=== PATIENT | male | born 1930 | race Caucasian/White ===

== ENCOUNTER → 2017-01-10 | Outpatient (CLI) | payer MEDICARE, OTHER ==
--- NOTE | 2017-01-10 09:25 | US ---
EXAMINATION TYPE: US thyroid st tissue head/neck DATE OF EXAM: 01/10/2017 9:04 AM COMPARISON: NONE CLINICAL HISTORY: R13.10 Dysphagia. GLAND SIZE: Right Lobe: 3.6 x 1.3 x 1.3 cm Overall Parenchyma: heterogenous Left Lobe: 3.5 x 1.1 x 1.7 cm Overall Parenchyma: heterogeneous Isthmus Thickness: 0.5 cm NODULES RIGHT: # of nodules measured on right: 0 LEFT: # of nodules measured on left: 0 ISTHMUS: # of nodules measured in the isthmus: 0 TECHNOLOGIST IMPRESSION: Bilateral neck scanned, no abnormal lymphadenopathy noted. Thyroid located quite inferior, technically difficult study. IMPRESSION: HETEROGENOUS THYROID WITHOUT DISCRETE NODULARITY.
--- NOTE | 2017-01-10 10:19 | FL ---
EXAMINATION TYPE: FL barium swallow w video DATE OF EXAM: 01/10/2017 9:52 AM COMPARISON: NONE HISTORY: Dysphagia. FINDINGS: Patient was evaluated in real-time fluoroscopy in the lateral projection while ingesting barium mixe d with liquids and solids. Questionable reflux noted from the more distal esophagus during the exam. No aspiration or laryngeal penetration. See dictated report from speech pathology. 2 minutes 26 seconds fluoroscopy time suppl ied. IMPRESSION: Questionable gastroesophageal reflux, consider dedicated barium swallow
== END | disposition home or self-care (01) ==
LOC: RADUSMAIN 08:40
PROVIDERS: ATTEND Otolaryngology
DX: R13.10 Dysphagia, unspecified (principal)
CPT/HCPCS: 74230; 76536

== ENCOUNTER → 2017-02-05 | Outpatient (CLI) | payer MEDICARE, OTHER ==
--- NOTE | 2017-02-05 12:31 | FL ---
EXAMINATION: Cervical and Thoracic Esophagram DATE OF EXAM: 02/05/2017 11:04 AM CLINICAL INDICATION: 78-year-old male with dysphagia, difficulty swallowing solids and liquids, feels food sticking at the mid chest level. COMPARISON: None Total Fluoroscopy Time: 2 minutes 26 seconds FINDINGS: When the patient is supine, mild silent aspiration is demonstrated. Some images of the hypopharyngeal region show possible filling defect versus mucosal redundancy. Double contrast esophageal assessment for mucosal abnormalities is limited due to slow, intermittent patient swallows. There are [id number] tertiary peristaltic contractions without definite filling defect or abnor mal narrowing. Intermittent intraesophageal reflux is seen No hiatal hernia is present. No gastroesophageal reflux could be elicited with Valsalva maneuver. IMPRESSION: 1. [id number] tertiary peristalsis and some intermittent intraesophageal reflux. 2. Some irregularity in the region of the hypopharynx is probably due to mucosal redundancy. Consider direct visualization to exclude a mucosal lesion. Detailed mucosal assessment is limited due to slow patient swallows. 3. Mild silent aspiration occurs when the patient is supine.
== END | disposition home or self-care (01) ==
LOC: RADFLWHC 10:00
PROVIDERS: ATTEND Otolaryngology
DX: K21.9 Gastro-esophageal reflux disease without esophagitis (principal)
CPT/HCPCS: 74220

== ENCOUNTER 2017-03-05 20:44 | Inpatient (IN) | payer MEDICARE, OTHER ==
[2017-03-05 21:20] LABS: Basophils % (A) 0 %; CHCM 33.7; Eosinophils # (A) 0.2 k/uL (0-0.7); Eosinophils % (A) 2 %; HCT 30.9 % (39.0-53.0); HDW 2.53; HGB 10.2 gm/dL (13.0-17.5); Luc # (Auto) 0.14; Luc % (Auto) 2; Lymphocytes # (A) 0.5 k/uL (1.0-4.8); Lymphocytes % (A) 7 %; MCH 33.6 pg (25.0-35.0); MCHC 33.1 g/dL (31.0-37.0); MCV 101.5 fL (80.0-100.0); Macrocytosis Slight; Mean Platelet Volume 8.5; Monocytes # (A) 0.3 k/uL (0-1.0); Monocytes % (A) 4 %; Neutrophils # (A) 6.7 k/uL (1.3-7.7); Neutrophils % (A) 85 %; RBC 3.05 m/uL (4.30-5.90); WBC 7.9 k/uL (3.8-10.6)
[2017-03-05 21:31] LABS: INR 1.1 (<1.1); Partial Thromboplastin Time 25.4 sec (22.0-30.0); Prothrombin Time 11.3 sec (9.0-12.0)
[2017-03-05 21:33] LABS: Calcium 8.6 mg/dL (8.4-10.2); Potassium 3.6 mmol/L (3.5-5.1); Total Bilirubin 1.8 mg/dL (0.2-1.3); Total Protein 6.3 g/dL (6.3-8.2)
[2017-03-05 21:37] LABS: Appearance,Urine Clear (Clear); Bilirubin,Urine Negative (Negative); Glucose,Urine (UA) Negative (Negative); Ketones,Urine Negative (Negative); Leukocyte Esterase,Urine Negative (Negative); Nitrite,Urine Negative (Negative); Protein,Urine Negative (Negative); Specific Gravity,Urine 1.008 (1.001-1.035); UA Billing (MACRO vs. MICRO) CHEM; Urobilinogen,Urine <2.0 mg/dL (<2.0)
--- NOTE | 2017-03-05 22:03 | ED ---
Fever HPI - General Chief Complaint: Fever Stated Complaint: general weakness,fever Time Seen by Provider: 03/05/17 20:44 Source: patient, EMS, RN notes reviewed Mode of arrival: EMS - History of Present Illness Initial Comments: This is a 86-year-old male was brought in by EMS for evaluation of fever 101.8. This started apparently rolled 5:30 this evening. He also noted have a blood pressure 97/52 sat of 91% room air he has a cough denies any headache blurry vision he does have a chronically swollen left lower extremity he states is no more swollen than usual. He denies any nausea vomiting cough or phlegm production he denies any dysuria. MD Complaint: fever - Related Data Home Medications Medication Instructions Recorded Confirmed Allopurinol [Zyloprim] 100 mg PO HS 09/26/16 03/05/17 Aspirin 81 mg PO HS 09/26/16 03/05/17 Atenolol [Tenormin] 50 mg PO QAM 09/26/16 03/05/17 Atorvastatin [Lipitor] 40 mg PO DAILY 09/26/16 03/05/17 Furosemide [Lasix] 40 mg PO QAM 09/26/16 03/05/17 [facility] 1 tab PO DAILY 09/26/16 03/05/17 Metolazone [Zaroxolyn] 2.5 mg PO Q48H 09/26/16 03/05/17 Potassium Chloride [Klor-Con 20] 70 meq PO AC-SUPPER 09/26/16 03/05/17 Ranitidine HCl [Zantac] 150 mg PO DAILY 09/26/16 03/05/17 traMADol HCL [Ultram] 50 mg PO Q8H PRN 09/26/16 03/05/17 Calcitriol 0.25 mcg PO LOPEZ 02/12/17 03/05/17 sitaGLIPtin [Januvia] 100 mg PO DAILY 02/12/17 03/05/17 Atenolol [Tenormin] 25 mg PO HS 03/05/17 03/05/17 Furosemide [Lasix] 60 mg PO HS 03/05/17 03/05/17 Previous Rx's Medication Instructions Recorded Loperamide [Imodium] 2 mg PO QID #20 cap 10/03/16 Allergies Allergy/AdvReac Type Severity Reaction Status Date / Time morphine Allergy Unknown Verified 05/10/17 22:13 Review of Systems ROS Statement: Those systems with pertinent positive or pertinent negative responses have been documented in the HPI. ROS Other: All systems not noted in ROS Statement are negative. Past Medical History Past Medical History: Cancer, Diabetes Mellitus, Osteoarthritis (OA) History of Any Multi-Drug Resistant Organisms: C-DIFF Date of last positivie culture/infection: 2011 MDRO Source:: stool Past Surgical History: Heart Catheterization With Stent, Hernia Repair, Joint Replacement, Pacemaker Past Anesthesia/Blood Transfusion Reactions: No Reported Reaction Date of Last Stent Placement:: unknown Type of Cardiac Device: Permanent Pacemaker Device Placement Date:: unknown Past Psychological History: No Psychological Hx Reported Smoking Status: Former smoker Past Alcohol Use History: None Reported Past Drug Use History: None Reported - Past Family History Father Family Medical History: Unable to Obtain General Exam - General Exam Comments Initial Comments: The well-developed well-nourished awake alert male General appearance: alert, in no apparent distress Head exam: Present: atraumatic, normocephalic, normal inspection Eye exam: Present: normal appearance, PERRL, EOMI. Absent: scleral icterus, conjunctival injection, periorbital swelling ENT exam: Present: mucous membranes dry Neck exam: Present: normal inspection. Absent: tenderness, meningismus, lymphadenopathy Respiratory exam: Present: normal lung sounds bilaterally. Absent: respiratory distress, wheezes, rales, rhonchi, stridor Cardiovascular Exam: Present: regular rate, normal rhythm, normal heart sounds. Absent: systolic murmur, diastolic murmur, rubs, gallop, clicks GI/Abdominal exam: Present: soft, normal bowel sounds. Absent: distended, tenderness, guarding, rebound, rigid Extremities exam: Present: full ROM, normal capillary refill, other (Left lower extremity demonstrates chronic stasis changes with edema does appear to be increased with respective temperature compared to the right. No lymphangitis). Absent: tenderness, pedal edema, joint swelling, calf tenderness Back exam: Present: normal inspection Neurological exam: Present: alert, oriented X3, CN II-XII intact Psychiatric exam: Present: normal affect, normal mood Skin exam: Present: warm, dry, intact, normal color. Absent: rash Course Vital Signs 03/05/17 03/05/17 03/05/17 20:47 21:03 22:03 Temperature 100.8 F H Pulse Rate 65 66 66 Respiratory 22 22 22 Rate Blood Pressure 93/56 93/52 105/55 O2 Sat by Pulse 92 L 96 96 Oximetry Medical Decision Making - Medical Decision Making I did discuss findings with patient family members and with Dr. Corrigan who did come to see the patient in emergency department patient be admitted place an IV antibiotics currently the presentation consistent with a cellulitis of left lower extremity as a source of the fever. CAT scan the abdomen is pending at this time. - Lab Data Result diagrams: 03/05/17 20:55 03/05/17 20:55 Lab Results 03/05/17 03/05/17 03/05/17 Range/Units 20:55 20:55 20:55 WBC 7.9 (3.8-10.6) k/uL RBC 3.05 L (4.30-5.90) m/uL Hgb 10.2 L (13.0-17.5) gm/dL Hct 30.9 L (39.0-53.0) % MCV 101.5 H (80.0-100.0) fL MCH 33.6 (25.0-35.0) pg MCHC 33.1 (31.0-37.0) g/dL RDW 16.0 H (11.5-15.5) % Plt Count 102 L (150-450) k/uL Neutrophils % 85 % Lymphocytes % 7 % Monocytes % 4 % Eosinophils % 2 % Basophils % 0 % Neutrophils # 6.7 (1.3-7.7) k/uL Lymphocytes # 0.5 L (1.0-4.8) k/uL Monocytes # 0.3 (0-1.0) k/uL Eosinophils # 0.2 (0-0.7) k/uL Basophils # 0.0 (0-0.2) k/uL Macrocytosis Slight PT (9.0-12.0) sec INR (<1.1) APTT (22.0-30.0) sec Sodium 138 (137-145) mmol/L Potassium 3.6 (3.5-5.1) mmol/L Chloride 106 (98-107) mmol/L Carbon Dioxide 22 (22-30) mmol/L Anion Gap 10 mmol/L BUN 59 H (9-20) mg/dL Creatinine 1.50 H (0.66-1.25) mg/dL Est GFR (MDRD) Af Amer 54 (>60 ml/min/1.73 sqM) Est GFR (MDRD) Non-Af 44 (>60 ml/min/1.73 sqM) Glucose 119 H (74-99) mg/dL Plasma Lactic Acid Conrado 1.1 (0.7-2.0) mmol/L Calcium 8.6 (8.4-10.2) mg/dL Total Bilirubin 1.8 H (0.2-1.3) mg/dL AST 45 (17-59) U/L ALT 52 (21-72) U/L Alkaline Phosphatase 144 H (38-126) U/L Total Protein 6.3 (6.3-8.2) g/dL Albumin 3.1 L (3.5-5.0) g/dL Urine Color Urine Appearance (Clear) Urine pH (5.0-8.0) Ur Specific [place] (1.001-1.035) Urine Protein (Negative) Urine Glucose (UA) (Negative) Urine Ketones (Negative) Urine Blood (Negative) Urine Nitrite (Negative) Urine Bilirubin (Negative) Urine Urobilinogen (<2.0) mg/dL Ur Leukocyte Esterase (Negative) Influenza Type A RNA (Not Detectd) Influenza Type B (PCR) (Not Detectd) 03/05/17 03/05/17 03/05/17 Range/Units 20:55 21:24 22:15 WBC (3.8-10.6) k/uL RBC (4.30-5.90) m/uL Hgb (13.0-17.5) gm/dL Hct (39.0-53.0) % MCV (80.0-100.0) fL MCH (25.0-35.0) pg MCHC (31.0-37.0) g/dL RDW (11.5-15.5) % Plt Count (150-450) k/uL Neutrophils % % Lymphocytes % % Monocytes % % Eosinophils % % Basophils % % Neutrophils # (1.3-7.7) k/uL Lymphocytes # (1.0-4.8) k/uL Monocytes # (0-1.0) k/uL Eosinophils # (0-0.7) k/uL Basophils # (0-0.2) k/uL Macrocytosis PT 11.3 (9.0-12.0) sec INR 1.1 (<1.1) APTT 25.4 (22.0-30.0) sec Sodium (137-145) mmol/L Potassium (3.5-5.1) mmol/L Chloride (98-107) mmol/L Carbon Dioxide (22-30) mmol/L Anion Gap mmol/L BUN (9-20) mg/dL Creatinine (0.66-1.25) mg/dL Est GFR (MDRD) Af Amer (>60 ml/min/1.73 sqM) Est GFR (MDRD) Non-Af (>60 ml/min/1.73 sqM) Glucose (74-99) mg/dL Plasma Lactic Acid Conrado (0.7-2.0) mmol/L Calcium (8.4-10.2) mg/dL Total Bilirubin (0.2-1.3) mg/dL AST (17-59) U/L ALT (21-72) U/L Alkaline Phosphatase (38-126) U/L Total Protein (6.3-8.2) g/dL Albumin (3.5-5.0) g/dL Urine Color Yellow Urine Appearance Clear (Clear) Urine pH 5.0 (5.0-8.0) Ur Specific [place] 1.008 (1.001-1.035) Urine Protein Negative (Negative) Urine Glucose (UA) Negative (Negative) Urine Ketones Negative (Negative) Urine Blood Negative (Negative) Urine Nitrite Negative (Negative) Urine Bilirubin Negative (Negative) Urine Urobilinogen <2.0 (<2.0) mg/dL Ur Leukocyte Esterase Negative (Negative) Influenza Type A RNA Not Detected (Not Detectd) Influenza Type B (PCR) Not Detected (Not Detectd) - Radiology Data Radiology results: report reviewed (I did review the initial imaging and reports no evidence of any pneumonia no evidence of DVT. CAT scan pending), image reviewed Disposition Clinical Impression: Cellulitis and abscess of left leg, Dehydration, Fever Disposition: ADMITTED IP TO THIS [facility] Condition: Stable
--- NOTE | 2017-03-05 22:51 | XR ---
EXAM: XR Chest, 2 Views CLINICAL HISTORY: Reason: cough TECHNIQUE: Frontal and lateral views of the chest. COMPARISON: No relevant prior studies available. FINDINGS: Lungs: Unremarkable. No consolidation. Pleural space: Stable blunting of the left posterior costophrenic angle which may reflect scarring or small pleural effusion. No pneumothorax. Heart: Enlarged cardiac silhouette. Mediastinum: Unremarkable. Bones/joints: Status post right shoulder arthroplasty. Vasculature: Atherosclerotic vascular calcifications in the aortic arch. Tubes, lines and devices: Pacemaker/AICD. IMPRESSION: 1. Stable enlargement of the cardiac silhouette without radiographic evidence for congestive failure. 2. Stable blunting of the posterior left costophrenic angle which may reflect small pleural effusion or scarring. 3. No definite focal consolidation and no pneumothorax. 4. Atherosclerosis, pacemaker/AICD, and right shoulder arthroplasty again seen.
[2017-03-05] MEDS ORDERED: IOHEXOL 350 MG/ML 25 ML BOTTLE (ORAL USE) PO PRN (22:54)
[2017-03-05] MEDS ORDERED: RX INFO: IV CONTRAST WAS GIVEN 1 EACH MISC MISCELLANE PRN (22:54)
[2017-03-05] MEDS ORDERED: VANCOMYCIN 1,500 MG in SODIUM CHLORIDE 0.9% 250 ML IVPB SCH (23:00)
--- NOTE | 2017-03-05 23:32 | US ---
EXAM: US Duplex Left Lower Extremity Veins CLINICAL HISTORY: Left lower extremity pain and swelling. TECHNIQUE: Real-time ultrasound scan of the veins of the left lower extremity with color Doppler flow, spectral waveform analysis and compression. COMPARISON: Left lower extremity venous ultrasound 09/27/2016 FINDINGS: Deep veins: Unremarkable. No DVT in the common femoral, femoral, proximal deep femoral or popliteal veins. The veins are compressible with normal color flow and augmentation. Superficial veins: Unremarkable. No thrombus in the visualized greater saphenous vein. Soft tissues: Mild nonspecific subcutaneous edema. IMPRESSION: 1. No sonographic evidence for deep vein thrombosis in the left lower extremity. 2. Mild nonspecific subcutaneous edema.
[2017-03-05] MEDS ORDERED: traMADol 50 MG TAB PO PRN (23:33)
[2017-03-05] MEDS ORDERED: VANCOMYCIN 1,300 MG in SODIUM CHLORIDE 0.9% 250 ML IVPB ONE (23:33)
[2017-03-05] MEDS ORDERED: IV VANCOMYCIN PER PHARMACY 1 EACH MISC MISCELLANE PRN (23:33)
[2017-03-05] MEDS ORDERED: NALOXONE 0.4 MG/ML 1 ML VIAL IV PRN (23:44)
[2017-03-05] MEDS ORDERED: FUROSEMIDE 40 MG TAB PO SCH (23:45)
[2017-03-05] MEDS ORDERED: SODIUM CHLORIDE 0.9% 1,000 ML IV SCH (23:45)
[2017-03-06] MEDS: CLINDAMYCIN 600 MG in DEXTROSE 5% IN WATER 50 ML IVPB SCH ×4 (02:13→05:51)
[2017-03-06 02:56] VITALS: BMI 28.8
--- NOTE | 2017-03-06 02:58 | CT ---
EXAM: CT Abdomen and Pelvis With Intravenous Contrast CLINICAL HISTORY: Fever, weakness, abscess, history of prostate cancer. TECHNIQUE: Axial computed tomography images of the abdomen and pelvis with intravenous contrast. CTDI is 27.4 mGy and DLP is 1096.5 mGy-cm This CT exam was performed using one or more of the following dose reduction techniques: automated exposure control, adjustment of the mA and/or kV according to patient size, and/or use of iterative reconstruction technique. Coronal and sagittal reformatted images were created and reviewed. CONTRAST: 80 mL of Visipaque 320 administered intravenously. COMPARISON: CT abdomen/pelvis 10/02/2016 FINDINGS: Lower thorax: Nonspecific bibasilar opacities may reflect atelectasis/scarring, consolidation, or some combination. Cardiomegaly with pacemaker/AICD. Trace left pleural effusion. Oppression new. Cardiomegaly with pacemaker/AICD. ABDOMEN: Liver: Unremarkable. No intrahepatic biliary ductal dilatation or focal enhancing mass. Gallbladder and bile ducts: Status post cholecystectomy without biliary ductal dilatation. Pancreas: Stable 2.4 cm hypoenhancing pancreatic neck lesion. No pancreatic duct dilation. Spleen: Unremarkable. No splenomegaly. Adrenals: Normal adrenal thickening. Kidneys and ureters: Stable 4.6 cm right mid renal cyst. No hydroureteronephrosis. Stomach and bowel: Colonic diverticulosis is present without diverticulitis. No small bowel obstruction. Appendix: Normal appendix. PELVIS: Bladder: Unremarkable. Unremarkable. Reproductive: Status post prostatectomy. Streak artifact in the pelvis limits assessment for local prostate cancer recurrence. ABDOMEN and PELVIS: Intraperitoneal space: Unremarkable. No free air. No significant fluid collection. Bones/joints: Status post bilateral hip arthroplasty. Streak artifact limits fine detail in the pelvis. Stable thoracolumbar spondylosis without acute compression fracture. No dislocation. Soft tissues: Gynecomastia. Vasculature: Atherosclerosis and infrarenal abdominal aortic aneurysm status post aortoiliac stent graft placement. The maximal AP diameter of the aneurysm sac measures 5 cm which is similar to prior. Contrast opacification is seen within the aneurysm sac compatible with unspecified endoleak. Lymph nodes: Unremarkable. No enlarged lymph nodes. Tubes, lines and devices: Interval increase in size of previously seen iliopsoas fluid collection status post removal of the pigtail catheter. The collection measures up to 11 cm craniocaudad by 7.8 cm transverse by 4 cm AP. IMPRESSION: 1. Interval increase in size of the previously seen iliopsoas fluid collection which may represent abscess status post removal of the pigtail catheter. The collection now measures up to 11 cm x 7.8 cm x 4 cm. Surgical consultation and followup to resolution recommended. 2. Infrarenal abdominal aortic aneurysm status post aortoiliac stent graft placement. The maximal AP diameter of the aneurysm sac is unchanged from prior at 5 cm. Contrast is seen opacifying the aneurysm sac compatible with endoleak (type unspecified). No contrast was present on prior study to assess for stability. Vascular surgery assessment recommended. 3. Nonspecific bibasilar pulmonary parenchymal opacities may represent atelectasis/scarring. A component of consolidation is not excluded and trace left pleural fluid is noted. Correlate clinically. 4. Diverticulosis without diverticulitis. 5. Stable 2.4 cm hypoenhancing pancreatic neck lesion. Followup recommended for exclusion of neoplasm. 6. Additional incidental/chronic findings as above. [employer] 03/06/17 03:11 Verify Receipt with Nurse Verified receipt with MALLORIE Fountain in [facility]
[2017-03-06] MEDS ORDERED: INSULIN LISPRO (humaLOG) 300 UNIT/3 ML VIAL SQ SCH (07:30)
[2017-03-06 07:50] VITALS: BP 94/54; PULSE 65; RESP 18; TEMP 98.7
[2017-03-06 08:11] LABS: Basophils % (A) 0 %; CH 33.2; Eosinophils # (A) 0.1 k/uL (0-0.7); Eosinophils % (A) 1 %; HCT 31.5 % (39.0-53.0); HDW 2.34; HGB 9.9 gm/dL (13.0-17.5); Luc # (Auto) 0.12; Luc % (Auto) 2; Lymphocytes # (A) 0.5 k/uL (1.0-4.8); Lymphocytes % (A) 7 %; MCH 32.5 pg (25.0-35.0); MCHC 31.3 g/dL (31.0-37.0); MCV 104.1 fL (80.0-100.0); Macrocytosis Moderate; Mean Platelet Volume 7.8; Monocytes # (A) 0.2 k/uL (0-1.0); Monocytes % (A) 3 %; Neutrophils # (A) 7.3 k/uL (1.3-7.7); Neutrophils % (A) 88 %; RBC 3.03 m/uL (4.30-5.90); RDW 15.9 % (11.5-15.5); WBC 8.3 k/uL (3.8-10.6); WBC (Perox) 8.86
[2017-03-06 08:33] LABS: Calcium 8.5 mg/dL (8.4-10.2); Potassium 3.2 mmol/L (3.5-5.1)
[2017-03-06] MEDS ORDERED: LINAGLIPTIN 5 MG TABLET PO SCH (09:00)
[2017-03-06] MEDS ORDERED: LOPERAMIDE 2 MG CAP PO SCH (09:00)
[2017-03-06] MEDS ORDERED: METOLAZONE 2.5 MG TAB PO SCH (09:00)
[2017-03-06] MEDS ORDERED: ATENOLOL 50 MG TAB PO SCH (09:00)
[2017-03-06] MEDS ORDERED: HEPARIN SODIUM,PORCINE 5,000 UNIT/ML 1 ML VIAL SQ SCH (09:00)
[2017-03-06] MEDS ORDERED: ATORVASTATIN 40 MG TAB PO SCH (09:00)
[2017-03-06] MEDS ORDERED: FAMOTIDINE 20 MG TAB PO SCH (09:00)
--- NOTE | 2017-03-06 09:58 | HP ---
DATE OF ADMISSION: DATE OF SERVICE: 03/05/2017 CHIEF COMPLAINT: Generalized weakness and fever. HISTORY OF PRESENT ILLNESS: This 86-year-old gentleman with a past medical history of multiple medical problems including diabetes mellitus, history of C. difficile colitis, history of CAD and stent, history of DJD being following by Dr. Jones in the outpatient setting was recently admitted to [facility] with features of left-sided abdominal pain, left-sided psoas hematoma. A CT-guided aspiration was done. Abscess was doubted. Dr. Coto is following the patient closely in the outpatient setting. The patient is currently complaining of having fever and complains of right leg swelling. Also, the patient came to [facility] and admitted for further evaluation and treatment. The patient also had a previous abdominal surgery also. There is no history of headache, loss of consciousness or seizures. No history of chest pain, palpitations, hematochezia or melena at this time. PAST MEDICAL HISTORY: History of diabetes mellitus, history of DJD, history of recent psoas hematoma, history of C. difficile, history of pacemaker. Medications prior to admission include home medications are: 1. Ultram 50 mg q.8 p.r.n. 2. Januvia 100 mg daily. 3. Zantac 150 mg p.o. daily. 4. Klor-Con 70 mEq daily. 5. Zaroxolyn 2.5 mg q.48 hours. 6. Imodium 2 mg p.o. q.i.d. 7. Lasix 60 mg q.h.s. and 40 mg q.a.m. 8. Calcitriol 0.25 mcg p.o. Sundays. 9. Lipitor 40 mg daily. 10. Tenormin 25 mg q.h.s. and 50 mg q.a.m. 11. Aspirin 81 mg q.h.s. 12. Zyloprim 100 mg q.h.s. ALLERGIES: MORPHINE. FAMILY HISTORY: No history of heart disease or strokes in the family. SOCIAL HISTORY: No history of smoking. Previous history of smoking. No history of alcohol intake. REVIEW OF SYSTEMS: ENT: No diminished hearing or diminished vision. CARDIOVASCULAR: No angina or palpitations. RESPIRATORY: No cough, no hemoptysis. GI: As mentioned earlier. : No dysuria. NERVOUS SYSTEM: No numbness or weakness. ALLERGY/IMMUNOLOGY: No asthma or hayfever. MUSCULOSKELETAL: As mentioned earlier. HEMATOLOGY/ONCOLOGY: No history of anemia. ENDOCRINE: No history of hypothyroidism. CONSTITUTIONAL: As mentioned earlier. DERMATOLOGY: Negative. RHEUMATOLOGY: Negative. PSYCHIATRY: As mentioned earlier. PHYSICAL EXAMINATION: The patient is alert and oriented x3. Pulse is 65, blood pressure is 93/56, respirations 22, temperature 100.8, pulse ox 92% on room air. HEENT: Conjunctivae normal. Oral mucosa moist. NECK: No jugular venous distention. No carotid bruit. No lymph node enlargement. CARDIOVASCULAR: S1 and S2, muffled. No S3, no S4. RESPIRATORY: Breath sounds diminished at the bases. No rhonchi, no crackles. ABDOMEN: Soft, mild diffuse discomfort. No guarding or rigidity. No mass palpable especially in the lower part. LEGS: Left leg with significant swelling, edema and erythema present. NERVOUS SYSTEM: Higher function as mentioned earlier. Moves all 4 limbs. No focal deficits. LYMPHATICS: No lymphadenopathy of neck, axillae or groin. SKIN: No ulcers, rashes or bleeding. LABS: WBC 7.9, hemoglobin 10.2. Creatinine is 1.50. ASSESSMENT: 1. Fever, leg swelling, possible acute cellulitis. 2. Abdominal discomfort, rule out abdominal abscess. 3. History of recent psoas hematoma and aspiration. 4. Anemia, macrocytic. 5. Thrombocytopenia. 6. Increased creatinine with chronic kidney disease stage III. 7. Increased total bilirubin. 8. History of diabetes mellitus type 2. 9. History of degenerative joint disease. 10. History of Clostridium difficile colitis. 11. History of coronary artery disease and stent. 12. History of pacemaker. 13. 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 14. Congestive heart failure with chronic systolic dysfunction, ejection fraction 25% to 30% with possible cardiomyopathy. 15. Moderate to severe mitral regurgitation and moderate to severe tricuspid regurgitation and moderate pulmonary hypertension. RECOMMENDATIONS AND DISCUSSION: This 86-year-old gentleman who presented with multiple complex medical issues. Will monitor the patient closely. Continue the current medications and symptomatic treatment. Otherwise, at this time I recommend repeat labs, order cultures and we will also recommend empiric antibiotics including vancomycin and Infectious Disease evaluation. Further recommendations to follow. A copy of dictation forwarded to Dr. Jones who is the primary physician.
[2017-03-06] MEDS ORDERED: POTASSIUM CHLORIDE ER 20 MEQ TAB.ER PO SCH (17:30)
[2017-03-06] MEDS ORDERED: ATENOLOL 25 MG TAB PO SCH (21:00)
[2017-03-06] MEDS ORDERED: FUROSEMIDE 20 MG TAB PO SCH (21:00)
[2017-03-06] MEDS ORDERED: ASPIRIN 81 MG CHEW PO SCH (21:00)
[2017-03-06] MEDS ORDERED: ALLOPURINOL 100 MG TAB PO SCH (21:00)
--- NOTE | 2017-03-07 09:32 | DS ---
DATE OF ADMISSION: 03/05/2017 DATE OF DISCHARGE: 03/06/2017 FINAL DIAGNOSES: 1. Fever and left leg swelling and pain with infrarenal abdominal aortic aneurysm, status post aortoiliac stent and as well as endoleak. 2. Left psoas hematoma versus abscess. 3. Bibasilar atelectasis. 4. History of recent psoas hematoma and aspiration. 5. Anemia, macrocytic. 6. Thrombocytopenia. 7. Increased creatinine with chronic kidney disease. 8. Increased total bilirubin. 9. History of diabetes mellitus type 2. 10. History of degenerative joint disease. 11. History of Clostridium difficile colitis. 12. History of coronary artery disease and stent. 13. History of pacemaker. 14. Low-density mass part of the pancreas on the previous CAT scan. 15. Congestive heart failure with chronic systolic dysfunction, ejection fraction 25% to 30% with possible cardiomyopathy. 16. Moderate to severe mitral regurgitation and moderate to severe tricuspid regurgitation with moderate pulmonary hypertension. 17. FULL CODE. DISCHARGE DISPOSITION: The patient was transferred to [facility] for further evaluation and treatment. HISTORY OF PRESENT ILLNESS: This 86-year-old gentleman with a past medical history of multiple medical problems being followed by Dr. Jones in the outpatient setting admitted with abdominal pain, left-sided leg pain and multiple other medical issues. The patient was treated conservatively. The patient was given antibiotics and a CAT scan of the abdomen showed multiple findings as well. Please refer to the CAT scan of the abdomen for detailed results. The case was discussed with [facility] for further evaluation and the patient was transferred to [facility] Surgical Unit for further evaluation and treatment of the above-mentioned multiple complex medical issues. Prognosis remained extremely guarded throughout the hospital stay. Please refer to the medications reconciliation sheet for the current medications. [facility]
[2017-03-09] MEDS ORDERED: CALCITRIOL 0.25 MCG CAP PO SCH (23:33)
== END 2017-03-06 08:15 | disposition short-term general hospital (02) | DRG 315 ==
LOC: EC 20:44 → 5MS5E 23:44
PROVIDERS: ADMIT Hospitalist; ATTEND Hospitalist
DX: T82.538A Leakage of other cardiac and vascular devices and implants, initial encounter (principal); I50.22 Chronic systolic (congestive) heart failure; D69.6 Thrombocytopenia, unspecified; I42.9 Cardiomyopathy, unspecified; N18.3 Chronic kidney disease, stage 3 (moderate); E11.22 Type 2 diabetes mellitus with diabetic chronic kidney disease; L02.416 Cutaneous abscess of left lower limb; I71.4 Abdominal aortic aneurysm, without rupture; I27.2 Other secondary pulmonary hypertension; I08.1 Rheumatic disorders of both mitral and tricuspid valves; M79.89 Other specified soft tissue disorders; E86.0 Dehydration; R74.8 Abnormal levels of other serum enzymes; R93.2 Abnormal findings on diagnostic imaging of liver and biliary tract; R50.9 Fever, unspecified; R53.1 Weakness; I25.10 Atherosclerotic heart disease of native coronary artery without angina pectoris; D53.9 Nutritional anemia, unspecified; M19.90 Unspecified osteoarthritis, unspecified site; Z95.0 Presence of cardiac pacemaker; Z95.5 Presence of coronary angioplasty implant and graft; Z79.899 Other long term (current) drug therapy; Z79.82 Long term (current) use of aspirin; Z87.891 Personal history of nicotine dependence; Z95.828 Presence of other vascular implants and grafts; Z88.5 Allergy status to narcotic agent; Z86.19 Personal history of other infectious and parasitic diseases; Z87.19 Personal history of other diseases of the digestive system; Z79.84 Long term (current) use of oral hypoglycemic drugs; Z79.891 Long term (current) use of opiate analgesic; Z96.60 Presence of unspecified orthopedic joint implant; Z98.890 Other specified postprocedural states; Z87.828 Personal history of other (healed) physical injury and trauma
CPT/HCPCS: 36415; 71020; 74177; 80048; 80053; 81003; 83605; 85025; 85610; 85730; 87040; 87086; 87502; 93005; 96365; 96366; 99285

== ENCOUNTER 2017-10-30 01:27 | Inpatient (IN) | payer MEDICARE, OTHER ==
[2017-10-30] MEDS ORDERED: SODIUM CHLORIDE 0.9% 500 ML IV STA (01:35)
[2017-10-30] MEDS ORDERED: SODIUM CHLORIDE 0.9% 1,000 ML IV STA (01:35)
[2017-10-30] MEDS ORDERED: HYDROmorphone 1 MG/ML 1 ML SYRINGE IVP STA (01:36)
[2017-10-30 01:58] LABS: Anisocytosis Slight; Basophils % (A) 1 %; Eosinophils # (A) 0.4 k/uL (0-0.7); Eosinophils % (A) 5 %; HCT 30.2 % (39.0-53.0); HGB 9.5 gm/dL (13.0-17.5); Hypochromasia Slight; Lymphocytes # (A) 0.8 k/uL (1.0-4.8); Lymphocytes % (A) 11 %; MCH 32.1 pg (25.0-35.0); MCHC 31.3 g/dL (31.0-37.0); MCV 102.5 fL (80.0-100.0); Macrocytosis Slight; Mean Platelet Volume 7.8; Monocytes # (A) 0.6 k/uL (0-1.0); Monocytes % (A) 8 %; Neutrophils # (A) 5.4 k/uL (1.3-7.7); Neutrophils % (A) 73 %; Platelet Count 179 k/uL (150-450); RBC 2.95 m/uL (4.30-5.90); RDW 16.2 % (11.5-15.5); WBC 7.3 k/uL (3.8-10.6)
--- NOTE | 2017-10-30 02:04 | XR ---
EXAMINATION TYPE: XR chest 2V DATE OF EXAM: 10/30/2017 COMPARISON: 03/05/2017 HISTORY: Chest pain TECHNIQUE: Frontal and lateral views of the chest are obtained. FINDINGS: Heart is enlarged. Thoracic aorta is atheromatous. There is pulmonary vascular congestion. There is very slight blunting of costophrenic angles. There are chest leads. There is a left axillar y pacemaker with the lead tips in the right ventricle. IMPRESSION: Cardiomegaly. Mild heart failure. Pulmonary congestion appears increased compared to las t exam.
[2017-10-30 02:07] LABS: Albumin 3.5 g/dL (3.5-5.0); Calcium 9.5 mg/dL (8.4-10.2); Magnesium 1.8 mg/dL (1.6-2.3); Potassium 3.7 mmol/L (3.5-5.1); Total Bilirubin 0.7 mg/dL (0.2-1.3); Total Protein 6.8 g/dL (6.3-8.2)
[2017-10-30 02:14] LABS: D-Dimer 4.96 mg/L FEU (<0.60); INR 1.1 (<1.2)
[2017-10-30 02:15] LABS: Partial Thromboplastin Time 24.9 sec (22.0-30.0); Prothrombin Time 10.9 sec (9.0-12.0)
[2017-10-30 02:30] LABS: Creatine Kinase MB 0.8 ng/mL (0.0-2.4); Troponin I 0.016 ng/mL (0.000-0.034)
--- NOTE | 2017-10-30 03:10 | ED ---
General Adult HPI - General Chief complaint: Chest Pain Stated complaint: R shoulder pain Time Seen by Provider: 10/30/17 01:35 Source: patient, EMS, RN notes reviewed, old records reviewed Mode of arrival: EMS Limitations: no limitations - History of Present Illness Initial comments: This is an 87-year-old male to the ER for evaluation. Patient presents today for evaluation regarding shoulder pain and chest pain. Patient will for medical comorbidities including heart disease, CVA. Right-sided pain. Patient admits to dehydration, denies fever, occasional cough and congestion. Patient denies any abdominal pain no nausea or vomiting. No injuries or trauma. No fevers. Patient states the pain is his right shoulder right anterior chest radiates to his right back and sometimes on his right arm - Related Data Home Medications Medication Instructions Recorded Confirmed Allopurinol [Zyloprim] 100 mg PO HS 09/26/16 03/05/17 Aspirin 81 mg PO HS 09/26/16 03/05/17 Atenolol [Tenormin] 50 mg PO QAM 09/26/16 03/05/17 Atorvastatin [Lipitor] 40 mg PO DAILY 09/26/16 03/05/17 Furosemide [Lasix] 40 mg PO QAM 09/26/16 03/05/17 [facility] 1 tab PO DAILY 09/26/16 03/05/17 Metolazone [Zaroxolyn] 2.5 mg PO Q48H 09/26/16 03/05/17 Potassium Chloride [Klor-Con 20] 70 meq PO AC-SUPPER 09/26/16 03/05/17 Ranitidine HCl [Zantac] 150 mg PO DAILY 09/26/16 03/05/17 traMADol HCL [Ultram] 50 mg PO Q8H PRN 09/26/16 03/05/17 Calcitriol 0.25 mcg PO LOPEZ 02/12/17 03/05/17 sitaGLIPtin [Januvia] 100 mg PO DAILY 02/12/17 03/05/17 Atenolol [Tenormin] 25 mg PO HS 03/05/17 03/05/17 Furosemide [Lasix] 60 mg PO HS 03/05/17 03/05/17 Previous Rx's Medication Instructions Recorded Loperamide [Imodium] 2 mg PO QID #20 cap 10/03/16 Allergies Allergy/AdvReac Type Severity Reaction Status Date / Time morphine Allergy Unknown Verified 03/05/17 22:13 Review of Systems ROS Statement: Those systems with pertinent positive or pertinent negative responses have been documented in the HPI. ROS Other: All systems not noted in ROS Statement are negative. Past Medical History Past Medical History: Cancer, Diabetes Mellitus, Hyperlipidemia, Osteoarthritis (OA), Pneumonia History of Any Multi-Drug Resistant Organisms: C-DIFF Date of last positivie culture/infection: 2011 MDRO Source:: stool Past Surgical History: Heart Catheterization With Stent, Hernia Repair, Joint Replacement, Pacemaker Past Anesthesia/Blood Transfusion Reactions: No Reported Reaction Date of Last Stent Placement:: unknown Type of Cardiac Device: Permanent Pacemaker Device Placement Date:: unknown Past Psychological History: No Psychological Hx Reported Smoking Status: Former smoker Past Alcohol Use History: None Reported Past Drug Use History: None Reported - Past Family History Father Family Medical History: Unable to Obtain General Exam Limitations: no limitations General appearance: alert, in no apparent distress Head exam: Present: atraumatic, normocephalic, normal inspection Eye exam: Present: normal appearance, PERRL, EOMI. Absent: scleral icterus, conjunctival injection, periorbital swelling ENT exam: Present: normal exam, mucous membranes moist Neck exam: Present: normal inspection. Absent: tenderness, meningismus, lymphadenopathy Respiratory exam: Present: normal lung sounds bilaterally. Absent: respiratory distress, wheezes, rales, rhonchi, stridor Cardiovascular Exam: Present: regular rate, normal rhythm, normal heart sounds. Absent: systolic murmur, diastolic murmur, rubs, gallop, clicks GI/Abdominal exam: Present: soft, normal bowel sounds. Absent: distended, tenderness, guarding, rebound, rigid Extremities exam: Present: normal inspection, full ROM, normal capillary refill. Absent: tenderness, pedal edema, joint swelling, calf tenderness Back exam: Present: normal inspection Neurological exam: Present: alert, oriented X3, CN II-XII intact Psychiatric exam: Present: normal affect, normal mood Skin exam: Present: warm, dry, intact, normal color. Absent: rash Course Vital Signs 10/30/17 01:28 Temperature 97.7 F Pulse Rate 52 L Respiratory 18 Rate Blood Pressure 144/64 O2 Sat by Pulse 95 Oximetry - Reevaluation(s) Reevaluation #1: 10/30/17 03:23 Patient is still complaining of pain despite pain medication, right shoulder right chest EKG Findings - EKG Comments: EKG Findings:: EKG shows paced rhythm rate of 70, QRS 194, QTC 548 Medical Decision Making - Medical Decision Making 87-year-old ER for evaluation of chest pain and right-sided chest pain and shoulder pain, he does have muscle tenderness does have history of CVA with elevated d-dimer, CT patient will be anticoagulated and admitted for VQ scan, will continue to also have evaluation by nephrology secondary to decreased kidney function and CHF and cardiology - Lab Data Result diagrams: 10/30/17 01:40 10/30/17 01:40 Lab Results 10/30/17 10/30/17 10/30/17 Range/Units 01:40 01:40 01:40 WBC 7.3 (3.8-10.6) k/uL RBC 2.95 L (4.30-5.90) m/uL Hgb 9.5 L (13.0-17.5) gm/dL Hct 30.2 L (39.0-53.0) % MCV 102.5 H (80.0-100.0) fL MCH 32.1 (25.0-35.0) pg MCHC 31.3 (31.0-37.0) g/dL RDW 16.2 H (11.5-15.5) % Plt Count 179 (150-450) k/uL Neutrophils % 73 % Lymphocytes % 11 % Monocytes % 8 % Eosinophils % 5 % Basophils % 1 % Neutrophils # 5.4 (1.3-7.7) k/uL Lymphocytes # 0.8 L (1.0-4.8) k/uL Monocytes # 0.6 (0-1.0) k/uL Eosinophils # 0.4 (0-0.7) k/uL Basophils # 0.0 (0-0.2) k/uL Hypochromasia Slight Anisocytosis Slight Macrocytosis Slight PT (9.0-12.0) sec INR (<1.2) APTT (22.0-30.0) sec D-Dimer (<0.60) mg/L FEU Sodium 140 (137-145) mmol/L Potassium 3.7 (3.5-5.1) mmol/L Chloride 103 (98-107) mmol/L Carbon Dioxide 25 (22-30) mmol/L Anion Gap 12 mmol/L BUN 49 H (9-20) mg/dL Creatinine 2.30 H (0.66-1.25) mg/dL Est GFR (MDRD) Af Amer 33 (>60 ml/min/1.73 sqM) Est GFR (MDRD) Non-Af 27 (>60 ml/min/1.73 sqM) Glucose 169 H (74-99) mg/dL Calcium 9.5 (8.4-10.2) mg/dL Magnesium 1.8 (1.6-2.3) mg/dL Total Bilirubin 0.7 (0.2-1.3) mg/dL AST 22 (17-59) U/L ALT 39 (21-72) U/L Alkaline Phosphatase 143 H (38-126) U/L Total Creatine Kinase 26 L (55-170) U/L CK-MB (CK-2) 0.8 (0.0-2.4) ng/mL CK-MB (CK-2) Rel Index 3.1 Troponin I 0.016 (0.000-0.034) ng/mL Total Protein 6.8 (6.3-8.2) g/dL Albumin 3.5 (3.5-5.0) g/dL Lipase 102 (23-300) U/L 10/30/17 Range/Units 01:40 WBC (3.8-10.6) k/uL RBC (4.30-5.90) m/uL Hgb (13.0-17.5) gm/dL Hct (39.0-53.0) % MCV (80.0-100.0) fL MCH (25.0-35.0) pg MCHC (31.0-37.0) g/dL RDW (11.5-15.5) % Plt Count (150-450) k/uL Neutrophils % % Lymphocytes % % Monocytes % % Eosinophils % % Basophils % % Neutrophils # (1.3-7.7) k/uL Lymphocytes # (1.0-4.8) k/uL Monocytes # (0-1.0) k/uL Eosinophils # (0-0.7) k/uL Basophils # (0-0.2) k/uL Hypochromasia Anisocytosis Macrocytosis PT 10.9 (9.0-12.0) sec INR 1.1 (<1.2) APTT 24.9 (22.0-30.0) sec D-Dimer 4.96 H (<0.60) mg/L FEU Sodium (137-145) mmol/L Potassium (3.5-5.1) mmol/L Chloride (98-107) mmol/L Carbon Dioxide (22-30) mmol/L Anion Gap mmol/L BUN (9-20) mg/dL Creatinine (0.66-1.25) mg/dL Est GFR (MDRD) Af Amer (>60 ml/min/1.73 sqM) Est GFR (MDRD) Non-Af (>60 ml/min/1.73 sqM) Glucose (74-99) mg/dL Calcium (8.4-10.2) mg/dL Magnesium (1.6-2.3) mg/dL Total Bilirubin (0.2-1.3) mg/dL AST (17-59) U/L ALT (21-72) U/L Alkaline Phosphatase (38-126) U/L Total Creatine Kinase (55-170) U/L CK-MB (CK-2) (0.0-2.4) ng/mL CK-MB (CK-2) Rel Index Troponin I (0.000-0.034) ng/mL Total Protein (6.3-8.2) g/dL Albumin (3.5-5.0) g/dL Lipase (23-300) U/L - Radiology Data Radiology results: report reviewed (Chest x-ray positive CHF), image reviewed Disposition Clinical Impression: Chest pain, Right shoulder pain, CHF (congestive heart failure), Elevated d- dimer Disposition: ADMITTED IP TO THIS HOSP Condition: Fair Referrals: Artemio Jones MD [Primary Care Provider] - 1-2 days
[2017-10-30] MEDS ORDERED: HEPARIN SODIUM,PORCINE 5,000 UNIT/ML 1 ML VIAL IV PRN (03:24)
[2017-10-30] MEDS ORDERED: FUROSEMIDE 10 MG/ML 4 ML VIAL IV STA (03:24)
[2017-10-30] MEDS ORDERED: HEPARIN SODIUM,PORCINE 5,000 UNIT/ML 1 ML VIAL IV ONE (03:24)
[2017-10-30] MEDS ORDERED: NITROGLYCERIN SL TABS 0.4 MG TAB SUBLINGUAL PRN (03:24)
[2017-10-30] MEDS ORDERED: IPRATROPIUM-ALBUTEROL 3 ML NEB INHALATION PRN (03:24)
[2017-10-30] MEDS: HEPARIN SOD,PORK IN 0.45% NACL 25,000 UNIT in 0.45% NACL 1 500ML.BAG IV SCH (03:51)
[2017-10-30] MEDS ORDERED: CALCIUM CARBONATE 500 MG CHEWABLE PO PRN (04:48)
[2017-10-30] MEDS ORDERED: ONDANSETRON 4 MG/2 ML VIAL IVP PRN (04:48)
[2017-10-30] MEDS ORDERED: MELATONIN 5 MG TABLET PO PRN (04:48)
[2017-10-30] MEDS ORDERED: HYDROcodone/APAP 5-325MG 1 EACH TAB PO PRN (04:48)
[2017-10-30] MEDS ORDERED: DOCUSATE 100 MG CAP PO PRN (04:48)
[2017-10-30] MEDS ORDERED: ACETAMINOPHEN TAB 325 MG TAB PO PRN (04:48)
--- NOTE | 2017-10-30 05:18 | P.HPIM ---
History of Present Illness H&P Date: 10/30/17 Chief Complaint: right shoulder pain Patient is an 87-year-old male with a past medical history of congestive heart failure with ejection fraction 25-30% in September 2016, coronary artery disease with history of coronary stenting, abdominal aortic aneurysm with stenting 2, diabetes mellitus, and multiple other conditions as outlined below who presented to the hospital with complaints of right shoulder pain. In the emergency department he underwent an extensive evaluation. On arrival his vital signs were within normal limits. Initial laboratory analysis revealed an elevated creatinine at 2.3 which is above his baseline of approximately 1.4. He was also found to have a significantly elevated d-dimer at 4. His chest x-ray showed mild congestive heart failure which is unchanged. EKG demonstrated a paced rhythm. He was given a dose of Dilaudid which relieved his pain. He was started on a heparin drip with concern for possible pulmonary emboli and inability to of obtain CTA of the chest secondary to acute renal failure. A VQ scan was ordered for the morning. Arrangements were made for admission to the observation unit for further monitoring and care. Patient was seen and examined at bedside with nursing and family present. He complains for right sided shoulder pain with numbness and tingling down his left arm. He states that the pain has been increasing over the last several days. It started when he was at rest. It initially is worse when lying flat and feels as though he is talking in the front of his chest. He states it is worse with movement and better with rest. He had been trying to place a pull in the arm which did not help and sitting up in chair. He denies any associated unusual shortness of breath, nausea, vomiting, lightheadedness, and palpitations. He reports that he took 2 nitro at home today which seemed to help minimally with the pain but he was worried to take any more. He denies any changes in back pain and feeling lightheaded. He denies any overt chest pain. The pain is on the right side of his shoulder and then radiates underneath his axilla and onto his shoulder blade. He reports that the pain is worse with cough and he has had some white colored sputum. He has recently been on Levaquin for approximately the last week for upper respiratory tract infection and possible cellulitis in his left lower extremity. His daughter reports that his leg is much improved from when he started on the Levaquin. I have been red and feeling warm which has since resolved. He does have a history of significant lymphedema in that leg which appears to be at its baseline per family. He follows with Dr. Shannon and was due to see him in the morning for recheck on the leg. He also follows with Dr. Nolasco for cardiology and Dr. Valencia for vascular. He does have a history of multiple abdominal aortic aneurysm repair and possible small endovascular leak. I discussed with him and the family that there is a possibility of aneurysmal leak worsening well on anticoagulation. I have alerted him to ensure that he lives the nurse any significant increase in back pain, chest pain, shortness of breath, lightheadedness or just not feeling well. I've expressed this to the family and the nurse as well. We will try to get him scheduled for a V/Q as early as possible in order to get him off of the heparin drip if it is not necessary. He does complain of unchanged lower extremity weakness, urinary frequency going every 2 hours, intermittent lightheadedness, intermittent nausea, and intermittent constipation and diarrhea. All of these are unchanged. Review of Systems Pertinent positives and negatives as listed in HPI, all other 12 point review of systems is negative. Past Medical History Past Medical History: Coronary Artery Disease (CAD), Cancer, Heart Failure, Diabetes Mellitus, Hyperlipidemia, Myocardial Infarction ([place]), Osteoarthritis ( OA), Pneumonia Additional Past Medical History / Comment(s): Systolic congestive heart failure with ejection fraction 25-30%, Paroxysmal atrial fibrillation, chronic kidney disease stage III A, prostate cancer, lymphedema, psoas muscle hematoma, pneumonia, C. diff, degenerative joint disease, moderate to severe mitral and tricuspid regurgitation, infrarenal abdominal aortic aneurysm status post stenting with endo-leak History of Any Multi-Drug Resistant Organisms: C-DIFF Date of last positivie culture/infection: 2011 MDRO Source:: stool Past Surgical History: Heart Catheterization With Stent, Hernia Repair, Joint Replacement, Pacemaker Additional Past Surgical History / Comment(s): Abdominal aortic stenting [address] Valencia, right shoulder replacement, permanent pacemaker, bilateral knee replacements, bilateral hip replacement, left carotid stent, prostatectomy, drainage of psoas muscle abscess, right wrist surgery with removal of foreign body, right eye implantation, cholecystectomy, bilateral hernia repair Past Anesthesia/Blood Transfusion Reactions: No Reported Reaction Date of Last Stent Placement:: unknown Type of Cardiac Device: Permanent Pacemaker Device Placement Date:: unknown Past Psychological History: No Psychological Hx Reported Smoking Status: Former smoker Past Alcohol Use History: None Reported Past Drug Use History: None Reported Additional History: Lives alone, uses a walker - Past Family History Father Family Medical History: Unable to Obtain Additional Family Medical History / Comment(s): no heart disease Medications and Allergies Home Medications Medication Instructions Recorded Confirmed Type Allopurinol [Zyloprim] 100 mg PO HS 09/26/16 03/05/17 History Aspirin 81 mg PO HS 09/26/16 03/05/17 History Atenolol [Tenormin] 50 mg PO QAM 09/26/16 03/05/17 History Atorvastatin [Lipitor] 40 mg PO DAILY 09/26/16 03/05/17 History Furosemide [Lasix] 40 mg PO QAM 09/26/16 03/05/17 History [facility] 1 tab PO DAILY 09/26/16 03/05/17 History Metolazone [Zaroxolyn] 2.5 mg PO Q48H 09/26/16 03/05/17 History Potassium Chloride [Klor-Con 20] 70 meq PO AC-SUPPER 09/26/16 03/05/17 History Ranitidine HCl [Zantac] 150 mg PO DAILY 09/26/16 03/05/17 History traMADol HCL [Ultram] 50 mg PO Q8H PRN 09/26/16 03/05/17 History Loperamide [Imodium] 2 mg PO QID #20 cap 10/03/16 03/05/17 Rx Calcitriol 0.25 mcg PO LOPEZ 02/12/17 03/05/17 History sitaGLIPtin [Januvia] 100 mg PO DAILY 02/12/17 03/05/17 History Atenolol [Tenormin] 25 mg PO HS 03/05/17 03/05/17 History Furosemide [Lasix] 60 mg PO HS 03/05/17 03/05/17 History Allergies Allergy/AdvReac Type Severity Reaction Status Date / Time morphine Allergy Unknown Verified 03/05/17 22:13 Physical Exam Osteopathic Statement: *. No significant issues noted on an osteopathic structural exam other than those noted in the History and Physical/Consult. Vitals: Vital Signs Temp Pulse Resp BP Pulse Ox 10/30/17 03:41 71 18 134/72 98 10/30/17 01:28 97.7 F 52 L 18 144/64 95 Intake and Output 10/29/17 10/29/17 10/30/17 14:59 22:59 06:59 Other: Weight 81.647 kg Patient Weight 10/30/17 06:59 Weight 81.647 kg General: non toxic, [mild distress due to pain, appears at stated age, normal weight Derm:lymphedema left lower extremity with julia appearance without warm,th or erythema, no unusual rashes/lesions no unusual ecchymoses, warm, dry Head: atraumatic, normocephalic, symmetric Eyes: EOMI, no lid lag, anicteric sclera, pupils equal round reactive to light ENT: Nose and ears atraumatic, no thrush, no pharyngeal erythema Neck: No thyromegaly, no cervical lymphadenopathy, trachea midline, supple Mouth: no lip lesion, mucus membranes moist Cardiovascular: S1S2 irreg, with grade 3 systolic murmur, positive posterior tibial pulse bilateral, 4+ edema left LE, 2+ edema right lower extremity, capillary refill less than 2 seconds Lungs: CTA bilateral, no rhonchi, no rales , no accessory muscle use Abdominal: soft, nontender to palpation, no guarding, no appreciable organomegaly, normal bowel sounds Ext: no gross muscle atrophy, muscle strength 4 out of 5 in all 4 extremities grossly, no contractures, Neuro: CN II-XI grossly intact, light touch intact all 4 extremities, finger to nose within normal limits, Psych: Alert, oriented, appropriate affect Results CBC & Chem 7: 10/30/17 01:40 10/30/17 01:40 Labs: Abnormal Lab Results - Last 24 Hours (Table) 10/30/17 10/30/17 10/30/17 Range/Units 01:40 01:40 01:40 RBC 2.95 L (4.30-5.90) m/uL Hgb 9.5 L (13.0-17.5) gm/dL Hct 30.2 L (39.0-53.0) % MCV 102.5 H (80.0-100.0) fL RDW 16.2 H (11.5-15.5) % Lymphocytes # 0.8 L (1.0-4.8) k/uL D-Dimer (<0.60) mg/L FEU BUN 49 H (9-20) mg/dL Creatinine 2.30 H (0.66-1.25) mg/dL Glucose 169 H (74-99) mg/dL Alkaline Phosphatase 143 H (38-126) U/L Total Creatine Kinase 26 L (55-170) U/L 10/30/17 Range/Units 01:40 RBC (4.30-5.90) m/uL Hgb (13.0-17.5) gm/dL Hct (39.0-53.0) % MCV (80.0-100.0) fL RDW (11.5-15.5) % Lymphocytes # (1.0-4.8) k/uL D-Dimer 4.96 H (<0.60) mg/L FEU BUN (9-20) mg/dL Creatinine (0.66-1.25) mg/dL Glucose (74-99) mg/dL Alkaline Phosphatase (38-126) U/L Total Creatine Kinase (55-170) U/L Chest x-ray: report reviewed, image reviewed Thrombosis Risk Factor Assmnt - DVT/VTE Prophylaxis DVT/VTE Prophylaxis: Pharmacologic Prophylaxis ordered Assessment and Plan Assessment: Right shoulder and rib pain - concern for atypical angina, vs pulmonary emobolism vs arthritis vs cervical spine stenosis - On empiric heparin drip, scheduled for VQ scan in the morning, attempt to limit exposure heparin as able with history of aortic aneurysm with possible endovascular leak -Aspirin, troponins every 6 hours, cardiology consultation, echocardiogram -Shoulder x-ray, cervical spine CT -Discussed with patient and nursing signs of worsening abdominal aortic aneurysm and patient is aware he should not delay reporting this to nursing. Acute kidney injury on chronic kidney disease stage III A -Limit fluid resuscitation with patient's history of significant congestive heart failure -Avoid additional nephrotoxic agents -Received Lasix 1 in the ER -Consult nephrology -Repeat basic metabolic profile in a.m. Chronic systolic congestive heart failure with ejection fraction 25-30% -Limit fluids, hold iduretic and KCL -Status post Lasix 1 -Cardiology consultation pending DM 2 - hold januvia - SSI, check A1c HTN, controlled - continue home medications HLD - statin Lymphedema - sounds like he has an madi boot wrap at home, we will do CON wraps here Infrarenal Abdominal aortic aneurysm - monitor closely for clincal and Cr change with heparin gtt. Surrogate decision-maker: Geni Camacho CODE STATUS:Full DVT prophylaxis: on heparin gtt Discussed with: Patient, nursing, family, ED physician Anticipated discharge: 24-48 hours pending testing Anticipated discharge place: home A total of 80 minutes was spent on the care of this complex patient more than 50 % of the time was spent in counseling and care coordination.
[2017-10-30] MEDS ORDERED: traMADol 50 MG TAB PO PRN (05:35)
[2017-10-30] MEDS: LEVOFLOXACIN 500 MG TAB PO SCH (06:22)
[2017-10-30] MEDS: HYDROmorphone 1 MG/ML 1 ML SYRINGE IVP PRN ×3 (06:23→17:15)
[2017-10-30 06:54] LABS: Glucose,Whole Blood 155 mg/dL (75-99)
[2017-10-30 08:06] LABS: HGB 9.3 gm/dL (13.0-17.5); MCH 32.1 pg (25.0-35.0); MCHC 30.9 g/dL (31.0-37.0); Macrocytosis Moderate; Mean Platelet Volume 7.6; Platelet Count 166 k/uL (150-450); RBC 2.88 m/uL (4.30-5.90); RDW 15.3 % (11.5-15.5); WBC 7.5 k/uL (3.8-10.6)
[2017-10-30 08:33] LABS: Creatine Kinase MB 0.8 ng/mL (0.0-2.4); Troponin I 0.015 ng/mL (0.000-0.034)
[2017-10-30 08:56] LABS: Calcium 9.5 mg/dL (8.4-10.2); Potassium 3.8 mmol/L (3.5-5.1)
[2017-10-30] MEDS: INSULIN ASPART 100 UNIT/ML 1 ML 10 ML VIAL SQ SCH ×4 (09:30→22:15)
--- NOTE | 2017-10-30 09:56 | P.CRDCN ---
History of Present Illness History of present illness: Patient presenting with right sided scapula discomfort going down the right arm Atypical twinges of anterior chest pain which seemed like a shock like sensation , no syncope no undue shortness of breath ECG shows a paced rhythm with PVCs elevated D dimers normal cardiac enzymes awaiting VQ scan Known aortic aneurysm status post stenting Suggest 2-D echo and Doppler study to assess cardiac structure and function Proceed with VQ scan/workup for possible pulmonary embolism and management of this per primary team Received full dictation by nurse practitioner Past Medical History Past Medical History: Coronary Artery Disease (CAD), Cancer, Heart Failure, Diabetes Mellitus, Hyperlipidemia, Myocardial Infarction (LA), Osteoarthritis ( OA), Pneumonia Additional Past Medical History / Comment(s): Systolic congestive heart failure with ejection fraction 25-30%, Paroxysmal atrial fibrillation, chronic kidney disease stage III A, prostate cancer, lymphedema, psoas muscle hematoma, pneumonia, C. diff, degenerative joint disease, moderate to severe mitral and tricuspid regurgitation, infrarenal abdominal aortic aneurysm status post stenting with endo-leak Last Myocardial Infarction Date:: unknown History of Any Multi-Drug Resistant Organisms: C-DIFF Date of last positivie culture/infection: 2011 MDRO Source:: stool Past Surgical History: Cholecystectomy, Heart Catheterization With Stent, Hernia Repair, Joint Replacement, Pacemaker Additional Past Surgical History / Comment(s): Abdominal aortic stenting [address] Valencia, right shoulder replacement, permanent pacemaker, bilateral knee replacements, bilateral hip replacement, left carotid stent, prostatectomy, drainage of psoas muscle abscess, right wrist surgery with removal of foreign body, right eye implantation, cholecystectomy, bilateral hernia repair Past Anesthesia/Blood Transfusion Reactions: No Reported Reaction Date of Last Stent Placement:: unknown Type of Cardiac Device: Permanent Pacemaker Device Placement Date:: unknown Past Psychological History: No Psychological Hx Reported Smoking Status: Former smoker Past Alcohol Use History: None Reported Past Drug Use History: None Reported - Past Family History Father Family Medical History: Unable to Obtain Additional Family Medical History / Comment(s): no heart disease Medications and Allergies Home Medications Medication Instructions Recorded Confirmed Type Allopurinol [Zyloprim] 100 mg PO HS 09/26/16 10/30/17 History Aspirin 81 mg PO HS 09/26/16 10/30/17 History Atorvastatin [Lipitor] 40 mg PO DAILY 09/26/16 10/30/17 History Metolazone [Zaroxolyn] 2.5 mg PO Q48H 09/26/16 10/30/17 History Potassium Chloride [Klor-Con 20] 50 meq PO AC-SUPPER 09/26/16 10/30/17 History Ranitidine HCl [Zantac] 150 mg PO DAILY 09/26/16 10/30/17 History traMADol HCL [Ultram] 50 mg PO Q8H PRN 09/26/16 10/30/17 History Calcitriol 0.25 mcg PO LOPEZ 02/12/17 10/30/17 History sitaGLIPtin [Januvia] 100 mg PO DAILY 02/12/17 10/30/17 History Furosemide [Lasix] 60 mg PO DAILY 03/05/17 10/30/17 History Cholecalciferol (Vitamin D3) 2,000 units PO DAILY 10/30/17 10/30/17 History [Vitamin D3] Folic Acid 1 mg PO DAILY 10/30/17 10/30/17 History Metoprolol Tartrate [Metoprolol 25 mg PO BID 10/30/17 10/30/17 History Tartrate] Allergies Allergy/AdvReac Type Severity Reaction Status Date / Time morphine Allergy Severe Unknown Verified 10/30/17 08:27 Physical Exam Vitals: Vital Signs Temp Pulse Pulse Resp BP BP Pulse Ox 10/30/17 08:00 97.6 F 62 18 119/66 97 10/30/17 04:00 97.6 F 66 18 147/68 99 10/30/17 03:41 97.6 F 71 66 18 134/72 147/68 99 10/30/17 01:28 97.7 F 52 L 18 144/64 95 Intake and Output 10/29/17 10/30/17 10/30/17 22:59 06:59 14:59 Intake Total 140 Output Total 700 Balance -560 Intake: Intake, IV Titration 140 Amount Heparin Sod,Pork in 0.45% 40 NaCl 25,000 unit In 0.45 % NaCl 1 500ml.bag @ 12 UNITS/KG/HR 19.59 mls/hr IV .Q24H [facility]U Rx#: [id number] Sodium Chloride 0.9% 1, 100 000 ml @ 100 mls/hr IV . Q10H [facility] Rx#:[id number] Output: Urine 700 Other: Voiding Method Toilet Urinal Weight 87 kg Results 10/30/17 07:33 10/30/17 07:33 Cardiac Enzymes 10/30/17 10/30/17 10/30/17 Range/Units 01:40 01:40 07:33 AST 22 (17-59) U/L CK-MB (CK-2) 0.8 0.8 (0.0-2.4) ng/mL Troponin I 0.016 0.015 (0.000-0.034) ng/mL Coagulation 10/30/17 Range/Units 01:40 PT 10.9 (9.0-12.0) sec APTT 24.9 (22.0-30.0) sec CBC 10/30/17 10/30/17 Range/Units 01:40 07:33 WBC 7.3 7.5 (3.8-10.6) k/uL RBC 2.95 L 2.88 L (4.30-5.90) m/uL Hgb 9.5 L 9.3 L (13.0-17.5) gm/dL Hct 30.2 L 30.0 L (39.0-53.0) % Plt Count 179 166 (150-450) k/uL Comprehensive Metabolic Panel 10/30/17 10/30/17 Range/Units 01:40 07:33 Sodium 140 141 (137-145) mmol/L Potassium 3.7 3.8 (3.5-5.1) mmol/L Chloride 103 105 (98-107) mmol/L Carbon Dioxide 25 25 (22-30) mmol/L BUN 49 H 46 H (9-20) mg/dL Creatinine 2.30 H 1.99 H (0.66-1.25) mg/dL Glucose 169 H 147 H (74-99) mg/dL Calcium 9.5 9.5 (8.4-10.2) mg/dL AST 22 (17-59) U/L ALT 39 (21-72) U/L Alkaline Phosphatase 143 H (38-126) U/L Total Protein 6.8 (6.3-8.2) g/dL Albumin 3.5 (3.5-5.0) g/dL Current Medications Generic Name Dose Route Start Last Admin Trade Name Freq PRN Reason Stop Dose Admin Acetaminophen 650 mg 10/30/17 04:48 Tylenol Tab PO Q6HR PRN Fever and/ or Pain Hydrocodone Bitart/Acetaminophen 1 each 10/30/17 04:48 [place] 5-325 PO Q6HR PRN Pain Albuterol/Ipratropium 3 ml 10/30/17 03:24 Duoneb 0.5 Mg-3 Mg/3 Ml Soln INHALATION RT-QID PRN Shortness Of Breath Or Wheezing Allopurinol 100 mg 10/30/17 21:00 Zyloprim PO HS [facility] Aspirin 81 mg 10/30/17 21:00 Aspirin PO HS [facility] Atenolol 75 mg 10/30/17 09:00 Tenormin PO QAM [facility] Atorvastatin Calcium 40 mg 10/30/17 09:00 Lipitor PO DAILY [facility] Calcitriol 0.25 mcg 11/02/17 05:35 Rocaltrol PO LOPEZ [facility] Calcium Carbonate/Glycine 500 mg 10/30/17 04:48 Tums PO TID PRN Heartburn Cholecalciferol 2,000 unit 10/30/17 09:00 Vitamin D3 PO DAILY [facility] Docusate Sodium 100 mg 10/30/17 04:48 Colace PO BID PRN Constipation Famotidine 20 mg 10/30/17 09:00 Pepcid PO DAILY [facility] Folic Acid 1 mg 10/30/17 09:00 Folic Acid PO DAILY [facility] Heparin Sodium (Porcine) 0 unit 10/30/17 03:24 Heparin IV Q6HR PRN Low PTT Protocol Hydromorphone HCl 1 mg 10/30/17 03:24 10/30/17 06:23 Dilaudid IVP 1 mg Q4HR PRN Administration Pain Heparin Sodium/Sodium Chloride 500 mls @ 19.59 mls/hr 10/30/17 03:30 03:51 25,000 unit/ Sodium Chloride IV 12 units/kg/hr .Q24H [facility] 19.59 mls/hr Protocol Administration 12 UNITS/KG/HR Insulin Aspart 0 unit 10/30/17 07:30 10/30/17 09:30 Novolog SQ Not Given ACHS [facility] Protocol Levofloxacin 500 mg 10/30/17 06:00 10/30/17 06:22 Levaquin PO 10/31/17 06:01 500 mg Q24H [facility] Administration Melatonin 5 mg 10/30/17 04:48 Melatonin PO HS PRN Insomnia Multivitamins/Minerals 1 each 10/30/17 09:00 Ivite PO DAILY [facility] Nitroglycerin 0.4 mg 10/30/17 03:24 Nitrostat SUBLINGUAL Q5M PRN Chest Pain Ondansetron HCl 4 mg 10/30/17 04:48 Zofran IVP Q6H PRN Nausea Tramadol HCl 50 mg 10/30/17 05:35 Ultram PO Q8H PRN Pain Intake and Output 10/29/17 10/30/17 10/30/17 22:59 06:59 14:59 Intake Total 140 Output Total 700 Balance -560 Intake: Intake, IV Titration 140 Amount Heparin Sod,Pork in 0.45% 40 NaCl 25,000 unit In 0.45 % NaCl 1 500ml.bag @ 12 UNITS/KG/HR 19.59 mls/hr IV .Q24H [facility] Rx#: [id number] Sodium Chloride 0.9% 1, 100 000 ml @ 100 mls/hr IV . Q10H [facility] Rx#:[id number] Output: Urine 700 Other: Voiding Method Toilet Urinal Weight 87 kg 10/30/17 07:33 10/30/17 07:33
--- NOTE | 2017-10-30 10:45 | CT ---
EXAMINATION TYPE: CT cervical spine wo con DATE OF EXAM: 10/30/2017 COMPARISON: NONE HISTORY: Right shoulder numbness, weakness and pain CT DLP: 335.70 mGycm. Automated Exposure Control for Dose Reduction was Utilized. TECHNIQUE: CT scan of the cervical spine is obtained without contrast, axial images are obtained, sa gittal and coronal reformatted images are also reviewed. FINDINGS: Cervical spine is visualized in its entirety from C1 through upper thoracic levels. There i s grade 1 anterolisthesis of C4 on C5 and C7 on T1, likely on a degenerative basis. Numerous osseous cystic changes are seen of the dens and within the facets as well as the vertebral bodies at the endp lates. Narrowing of the atlantodental interval and postdental pannus is present. Multilevel facet art hropathy, uncovertebral hypertrophy, intervertebral disc space narrowing and anterior osteophytes are noted in addition to mild endplate sclerosis. Prevertebral soft tissue appears within normal limits. The C1-C2 articulation is within normal limit s on the coronal images. No evidence of acute cervical spine fracture. Review of axial images demonstrate moderate left neural foraminal narrowing at C3-C4 as a result of u ncovertebral hypertrophy and facet arthropathy. There is mild bilateral neural foraminal narrowing at C4-C5 from facet arthropathy and uncovertebral hypertrophy. There is severe right neural foraminal n arrowing and mild to moderate left neural foraminal narrowing at C5-C6 from uncovertebral hypertrophy and facet arthropathy. Similar degenerative changes resulting in moderate left and mild right neural foraminal narrowing at C6-C7. Neural foramen at C7-T1 appear patent. No significant spinal canal cody nosis is seen at any vertebral level. Small posterior disc osteophyte complexes are present at C5-C6 and C6-C7. No distinct disc herniation although this finding is better evaluated with MR. Thyroid gland is felt within normal limits. Visualized lung apices are clear. Incidental note is mad e of atheromatous calcifications of the common carotid arteries and carotid bulbs as well as the prox imal internal carotid arteries. IMPRESSION: 1. No acute fracture of the cervical spine. 2. Grade 1 anterolisthesis of C4 on C5 and C7 on T1, likely on a degenerative basis. 3. No gross evidence of spinal stenosis or focal disc herniation although these findings are better e valuated with MRI. 4. Multilevel variable degree neural foraminal narrowing as described above is a result of facet arth ropathy and uncovertebral hypertrophy most severe at C5-C6 on the right.
--- NOTE | 2017-10-30 11:07 | NM ---
EXAMINATION TYPE: NM pul vent and perfuse DATE OF EXAM: 10/30/2017 COMPARISON: Chest x-ray 10/30/2017 HISTORY: Chest pain TECHNIQUE: Utilizing inhalation of 67.9 mCi Tc 99m DTPA aerosol and intravenous injection of 5.46 mC i of Tc 99m MAA, ventilation and perfusion images are acquired post injection in multiple projections . FINDINGS: There is a matched defect involving the left lung. No definite chest x-ray abnormality noted. IMPRESSION: Intermediate probability for pulmonary embolism.
--- NOTE | 2017-10-30 11:21 | XR ---
EXAMINATION TYPE: XR shoulder complete RT DATE OF EXAM: 10/30/2017 COMPARISON: NONE HISTORY: Pain TECHNIQUE: Three views are submitted. FINDINGS: The osseous structures are intact. There is no acute fracture or dislocation. Postsurgical changes a re noted and there is diffuse osteopenia. Biapical pleural thickening. Vascular calcifications noted. Heterotopic ossification along the AC joint. IMPRESSION: 1. Postsurgical changes.
[2017-10-30] MEDS: VIT A,C & E-LUTEIN-MINERALS 1 EACH TAB PO SCH (11:32)
[2017-10-30] MEDS: FAMOTIDINE 20 MG TAB PO SCH (11:32)
[2017-10-30] MEDS: FOLIC ACID 1 MG TAB PO SCH (11:32)
[2017-10-30] MEDS: CHOLECALCIFEROL 1,000 UNIT TAB PO SCH (11:32)
--- NOTE | 2017-10-30 11:32 | P.PN ---
Progress Note - Text Progress Note Date: 10/30/17 briefly this is a 87-year-old male that was admitted and placed on observation for atypical chest pain after presenting with with right sided scapula discomfort going down the right arm, his initial EKG and cardiac enzymes are negative for any sedation of ischemia. In the ER he had elevated d- dimer of approximately 5 given his underlying chronic kidney disease stage III patient had a VQ scan showed intermediate probability of pulmonary embolism, he was continued on heparin drip and pulmonary is consulted. X-ray of the shoulder showed postsurgical changes with osteopenia. And CT of his neck showed diffuse cervical DJD with radiculopathywhich was a likely source of his paresthesias, patient is started on gabapentin and will await pulmonary recommendations
[2017-10-30] MEDS: ATENOLOL 50 MG TAB PO SCH (11:33)
[2017-10-30] MEDS: ATORVASTATIN 40 MG TAB PO SCH (11:33)
[2017-10-30 11:55] LABS: Glucose,Whole Blood 150 mg/dL (75-99)
[2017-10-30] MEDS: GABAPENTIN 100 MG CAP PO SCH ×3 (12:59→22:14)
[2017-10-30 13:01] LABS: Creatine Kinase MB 0.9 ng/mL (0.0-2.4); Troponin I 0.014 ng/mL (0.000-0.034)
--- NOTE | 2017-10-30 13:41 | P.CRDCN ---
History of Present Illness Consult date: 10/30/16 History of present illness: This is an 87-year-old male with past medical history significant for coronary artery disease, abdominal aortic aneurysm with subsequent repair, systolic heart failure with EF 25-30%, dyslipidemia, hypertension, paroxysmal atrial fibrillation, pacemaker s/p sick sinus syndrome with recent generator change. He follows regularly with Dr. BRODIE Nolasco as an outpatient. We have been saked to see him in consultation for complaints of chest pain. He complains of pain in the right shoulder/scapula that radiates down the right arm with intermittent feelings of twinges in the anterior chest wall. He denies associated shortness of breath, dizziness, syncope or palpitations. A VQ scan has been ordered to rule out PE and he has been placed on heparin infusion prophylactically secondary to elevated D-dimer and inability to obtain CTA secondary to elevated creatinine. EKG on arrival reveals a paced rhythm with PVC's. Chest xray shows cardiomegaly with increased pulmonary vascular congestion. Laboratory data reviewed, hemoglobin 9.3, platelets 166, potassium 3.8, BUN 46, creatinine 1.99, d-dimer 4.96, cardiac enzymes negative 3, proBNP 8300. Current cardiac medications include metoprolol titrate 25 mg twice a day, potassium 50 MEQs daily, Lasix 60 mg daily, atorvastatin 40 mg daily and aspirin 81 mg daily. Most recent cardiac catheterization was performed 2009 revealed 35% circumflex stenosis, RCA was free of significant disease and 35% narrowing of mid LAD stent with no in-stent restenosis. Review of Systems At the time of my exam CONSTITUTIONAL: Denies fever. Denies chills. EYES: Denies blurred vision. Denies vision changes. Denies eye pain. EARS, NOSE, MOUTH & THROAT: Denies headache. Denies sore throat. Denies ear pain. CARDIOVASCULAR: Denies chest pain. Denies shortness of breath. Denies orthopnea. Denies PND. Denies palpitations. RESPIRATORY: Denies cough. GASTROINTESTINAL: Denies abdominal pain. Denies diarrhea. Denies constipation. Denies nausea. Denies vomiting. MUSCULOSKELETAL: Complains of right scapular pain. INTEGUMENTARY: Denies pruitis. Denies rash. NEUROLOGIC: Denies numbness. Denies tingling. Denies weakness. PSYCHIATRIC: Denies anxiety. Denies depression. ENDOCRINE: Denies fatigue. Denies weight change. Denies polydipsia. Denies polyurina. GENITOURINARY: Denies burning, hematuria or urgency with micturation. HEMATOLOGIC: Denies history of anemia. Denies bleeding. Past Medical History Past Medical History: Coronary Artery Disease (CAD), Cancer, Heart Failure, Diabetes Mellitus, Hyperlipidemia, Myocardial Infarction (PR), Osteoarthritis ( OA), Pneumonia Additional Past Medical History / Comment(s): Systolic congestive heart failure with ejection fraction 25-30%, Paroxysmal atrial fibrillation, chronic kidney disease stage III A, prostate cancer, lymphedema, psoas muscle hematoma, pneumonia, C. diff, degenerative joint disease, moderate to severe mitral and tricuspid regurgitation, infrarenal abdominal aortic aneurysm status post stenting with endo-leak Last Myocardial Infarction Date:: unknown History of Any Multi-Drug Resistant Organisms: C-DIFF Date of last positivie culture/infection: 2011 MDRO Source:: stool Past Surgical History: Cholecystectomy, Heart Catheterization With Stent, Hernia Repair, Joint Replacement, Pacemaker Additional Past Surgical History / Comment(s): Abdominal aortic stenting [address] Valencia, right shoulder replacement, permanent pacemaker, bilateral knee replacements, bilateral hip replacement, left carotid stent, prostatectomy, drainage of psoas muscle abscess, right wrist surgery with removal of foreign body, right eye implantation, cholecystectomy, bilateral hernia repair Past Anesthesia/Blood Transfusion Reactions: No Reported Reaction Date of Last Stent Placement:: unknown Type of Cardiac Device: Permanent Pacemaker Device Placement Date:: unknown Past Psychological History: No Psychological Hx Reported Smoking Status: Former smoker Past Alcohol Use History: None Reported Past Drug Use History: None Reported - Past Family History Father Family Medical History: Unable to Obtain Additional Family Medical History / Comment(s): no heart disease Medications and Allergies Home Medications Medication Instructions Recorded Confirmed Type Allopurinol [Zyloprim] 100 mg PO HS 09/26/16 10/30/17 History Aspirin 81 mg PO HS 09/26/16 10/30/17 History Atorvastatin [Lipitor] 40 mg PO DAILY 09/26/16 10/30/17 History Metolazone [Zaroxolyn] 2.5 mg PO Q48H 09/26/16 10/30/17 History Potassium Chloride [Klor-Con 20] 50 meq PO AC-SUPPER 09/26/16 10/30/17 History Ranitidine HCl [Zantac] 150 mg PO DAILY 09/26/16 10/30/17 History traMADol HCL [Ultram] 50 mg PO Q8H PRN 09/26/16 10/30/17 History Calcitriol 0.25 mcg PO LOPEZ 02/12/17 10/30/17 History sitaGLIPtin [Januvia] 100 mg PO DAILY 02/12/17 10/30/17 History Furosemide [Lasix] 60 mg PO DAILY 03/05/17 10/30/17 History Cholecalciferol (Vitamin D3) 2,000 units PO DAILY 10/30/17 10/30/17 History [Vitamin D3] Folic Acid 1 mg PO DAILY 10/30/17 10/30/17 History Metoprolol Tartrate [Metoprolol 25 mg PO BID 10/30/17 10/30/17 History Tartrate] Allergies Allergy/AdvReac Type Severity Reaction Status Date / Time morphine Allergy Severe Unknown Verified 10/30/17 08:27 Physical Exam Vitals: Vital Signs Temp Pulse Pulse Resp BP BP Pulse Ox 10/30/17 12:00 62 18 10/30/17 08:00 97.6 F 62 18 119/66 97 10/30/17 04:00 97.6 F 66 18 147/68 99 10/30/17 03:41 97.6 F 71 66 18 134/72 147/68 99 10/30/17 01:28 97.7 F 52 L 18 144/64 95 Intake and Output 10/29/17 10/30/17 10/30/17 22:59 06:59 14:59 Intake Total 140 182.84 Output Total 700 Balance -560 182.84 Intake: Intake, IV Titration 140 182.84 Amount Heparin Sod,Pork in 0.45% 40 182.84 NaCl 25,000 unit In 0.45 % NaCl 1 500ml.bag @ 12 UNITS/KG/HR 19.59 mls/hr IV .Q24H [facility]U Rx#: [id number] Sodium Chloride 0.9% 1, 100 000 ml @ 100 mls/hr IV . Q10H [facility] Rx#:[id number] Output: Urine 700 Other: Voiding Method Toilet Toilet Urinal Urinal Weight 87 kg Blood pressure 119/66 with a heart rate of 62 afebrile GENERAL: This is a 87-year-old male in no apparent distress at the time of my examination. HEENT: Head is atraumatic, normocephalic. Pupils are equal, round. Sclerae anicteric. Conjunctivae are clear. Mucous membranes of the mouth are moist. Neck is supple. There is no jugular venous distention. No carotid bruit is heard. LUNGS: Clear to auscultation no wheezes, rales or rhonchi. No chest wall tenderness is noted on palpation or with deep breathing. HEART: Regular rate and rhythm with systolic ejection murmur at the base, no rubs or gallops. S1 and S2 heard. ABDOMEN: Soft, nontender. Bowel sounds are heard. No organomegaly noted. EXTREMITIES: Peripheral pulses palpated. Moderate left lower extremity edema 3+ , right lower extremity 2+. Pt has chronic lymphedema. NEUROLOGIC: Patient is awake, alert and oriented x3. Results 10/30/17 07:33 10/30/17 07:33 Cardiac Enzymes 10/30/17 10/30/17 10/30/17 Range/Units 01:40 01:40 07:33 AST 22 (17-59) U/L CK-MB (CK-2) 0.8 0.8 (0.0-2.4) ng/mL Troponin I 0.016 0.015 (0.000-0.034) ng/mL 10/30/17 Range/Units 12:09 AST (17-59) U/L CK-MB (CK-2) 0.9 (0.0-2.4) ng/mL Troponin I 0.014 (0.000-0.034) ng/mL Coagulation 10/30/17 10/30/17 Range/Units 01:40 12:09 PT 10.9 (9.0-12.0) sec APTT 24.9 89.9 H (22.0-30.0) sec CBC 18 10/30/17 Range/Units 01:40 07:33 WBC 7.3 7.5 (3.8-10.6) k/uL RBC 2.95 L 2.88 L (4.30-5.90) m/uL Hgb 9.5 L 9.3 L (13.0-17.5) gm/dL Hct 30.2 L 30.0 L (39.0-53.0) % Plt Count 179 166 (150-450) k/uL Comprehensive Metabolic Panel 10/30/17 10/30/17 Range/Units 01:40 07:33 Sodium 140 141 (137-145) mmol/L Potassium 3.7 3.8 (3.5-5.1) mmol/L Chloride 103 105 (98-107) mmol/L Carbon Dioxide 25 25 (22-30) mmol/L BUN 49 H 46 H (9-20) mg/dL Creatinine 2.30 H 1.99 H (0.66-1.25) mg/dL Glucose 169 H 147 H (74-99) mg/dL Calcium 9.5 9.5 (8.4-10.2) mg/dL AST 22 (17-59) U/L ALT 39 (21-72) U/L Alkaline Phosphatase 143 H (38-126) U/L Total Protein 6.8 (6.3-8.2) g/dL Albumin 3.5 (3.5-5.0) g/dL Current Medications Generic Name Dose Route Start Last Admin Trade Name Freq PRN Reason Stop Dose Admin Acetaminophen 650 mg 10/30/17 04:48 Tylenol Tab PO Q6HR PRN Fever and/ or Pain Hydrocodone Bitart/Acetaminophen 1 each 10/30/17 04:48 [place] 5-325 PO Q6HR PRN Pain Albuterol/Ipratropium 3 ml 10/30/17 03:24 Duoneb 0.5 Mg-3 Mg/3 Ml Soln INHALATION RT-QID PRN Shortness Of Breath Or Wheezing Allopurinol 100 mg 10/30/17 21:00 Zyloprim PO HS [facility] Aspirin 81 mg 10/30/17 21:00 Aspirin PO HS [facility] Atenolol 75 mg 10/30/17 09:00 10/30/17 11:33 Tenormin PO 75 mg QAM [facility] Administration Atorvastatin Calcium 40 mg 10/30/17 09:00 10/30/17 11:33 Lipitor PO 40 mg DAILY [facility] Administration Calcitriol 0.25 mcg 11/02/17 05:35 Rocaltrol PO LOPEZ [facility] Calcium Carbonate/Glycine 500 mg 10/30/17 04:48 Tums PO TID PRN Heartburn Cholecalciferol 2,000 unit 10/30/17 09:00 10/30/17 11:32 Vitamin D3 PO 2,000 unit DAILY [facility] Administration Docusate Sodium 100 mg 10/30/17 04:48 Colace PO BID PRN Constipation Famotidine 20 mg 10/30/17 09:00 10/30/17 11:32 Pepcid PO 20 mg DAILY [facility] Administration Folic Acid 1 mg 10/30/17 09:00 10/30/17 11:32 Folic Acid PO 1 mg DAILY [facility] Administration Gabapentin 100 mg 10/30/17 11:45 10/30/17 12:59 Neurontin PO 100 mg TID [facility] Administration Heparin Sodium (Porcine) 0 unit 10/30/17 03:24 Heparin IV Q6HR PRN Low PTT Protocol Hydromorphone HCl 1 mg 10/30/17 03:24 10/30/17 11:38 Dilaudid IVP 1 mg Q4HR PRN Administration Pain Heparin Sodium/Sodium Chloride 500 mls @ 19.59 mls/hr 10/30/17 03:30 13:11 25,000 unit/ Sodium Chloride IV 10 units/kg/hr .Q24H [facility] 16.32 mls/hr Protocol Titration 12 UNITS/KG/HR Insulin Aspart 0 unit 10/30/17 07:30 10/30/17 12:58 Novolog SQ 1 unit ACHS [facility] Administration Protocol Levofloxacin 500 mg 10/30/17 06:00 10/30/17 06:22 Levaquin PO 10/31/17 06:01 500 mg Q24H [facility] Administration Melatonin 5 mg 10/30/17 04:48 Melatonin PO HS PRN Insomnia Multivitamins/Minerals 1 each 10/30/17 09:00 10/30/17 11:32 Ivite PO 1 each DAILY [facility] Administration Nitroglycerin 0.4 mg 10/30/17 03:24 Nitrostat SUBLINGUAL Q5M PRN Chest Pain Ondansetron HCl 4 mg 10/30/17 04:48 Zofran IVP Q6H PRN Nausea Tramadol HCl 50 mg 10/30/17 05:35 Ultram PO Q8H PRN Pain Intake and Output 10/29/17 10/30/17 10/30/17 22:59 06:59 14:59 Intake Total 140 182.84 Output Total 700 Balance -560 182.84 Intake: Intake, IV Titration 140 182.84 Amount Heparin Sod,Pork in 0.45% 40 182.84 NaCl 25,000 unit In 0.45 % NaCl 1 500ml.bag @ 12 UNITS/KG/HR 19.59 mls/hr IV .Q24H [facility] Rx#: [id number] Sodium Chloride 0.9% 1, 100 000 ml @ 100 mls/hr IV . Q10H [facility] Rx#:[id number] Output: Urine 700 Other: Voiding Method Toilet Toilet Urinal Urinal Weight 87 kg 10/30/17 07:33 10/30/17 07:33 Assessment and Plan Assessment: ASSESSMENT 1. Chest pain, atypical 2. History of coronary artery disease, chronic stable 3. Hypertension 4. Paroxysmal atrial fibrillation with slow ventricular response not on long- term anticoagulation secondary to risk of falls and bleeding 5. Sick sinus syndrome status post pacemaker implantation 6. Chronic systolic heart failure 7. Abdominal aortic aneurysm, infrarenal status post repair with endoleak. 8. Elevated d-dimer rule out pulmonary embolism. PLAN Obtain 2-D echocardiogram and Doppler study to assess cardiac structure and function. Proceed with VQ scan and workup for possible pulmonary embolism. Management per primary team. Nurse Practitioner note has been reviewed, I agree with a documented findings and plan of care. Patient was seen and examined.
--- NOTE | 2017-10-30 14:25 | P.NPCON ---
History of Present Illness - Reason for Consult acute renal failure - History of Present Illness Reason for consultation: Acute kidney injury on chronic kidney disease History of present illness: Patient is a 87-year-old male seen in renal consultation for acute kidney injury on chronic kidney disease. Patient has chronic kidney disease stage III with baseline creatinine near 1.5 secondary to nephrosclerosis. Patient presented to the hospital due to right shoulder pain. Patient describes the pain as dragging with radiation to his back as well as his right arm. He did have a V/Q test which revealed intermediate probability for PE and is currently maintained on IV heparin. Computed tomography scan from February 2017 reveals no evidence of hydronephrosis. His creatinine was 2.3 on admission and is down to 1.99 today. He did receive IV fluids last night as well as a dose of 40 mg IV Lasix. Currently the fluids have been discontinued. He does have lymphedema for which she does take Lasix 60 mg daily at home. His oral intake is fair. No vomiting or diarrhea. Pain is controlled with Dilaudid. Denies use of NSAIDs. He has been voiding. No hematuria or dysuria. Vital signs are stable. General: The patient appeared well nourished and normally developed. HEENT: Head exam is unremarkable. Neck is without jugular venous distension. LUNGS: Lungs are clear to auscultation and percussion. Breath sounds decreased. HEART: Rate and Rhythm are regular. First and second heart sounds normal. No murmurs, rubs or gallops. ABDOMEN: Abdominal exam reveals normal bowel sounds. Non-tender and non- distended. No evidence of peritonitis. EXTREMITITES: 1+ edema. Lower extremities wrapped. Past Medical History Past Medical History: Coronary Artery Disease (CAD), Cancer, Heart Failure, Diabetes Mellitus, Hyperlipidemia, Myocardial Infarction ([place]), Osteoarthritis ( OA), Pneumonia Additional Past Medical History / Comment(s): Systolic congestive heart failure with ejection fraction 25-30%, Paroxysmal atrial fibrillation, chronic kidney disease stage III A, prostate cancer, lymphedema, psoas muscle hematoma, pneumonia, C. diff, degenerative joint disease, moderate to severe mitral and tricuspid regurgitation, infrarenal abdominal aortic aneurysm status post stenting with endo-leak Last Myocardial Infarction Date:: unknown History of Any Multi-Drug Resistant Organisms: C-DIFF Date of last positivie culture/infection: 2011 MDRO Source:: stool Past Surgical History: Cholecystectomy, Heart Catheterization With Stent, Hernia Repair, Joint Replacement, Pacemaker Additional Past Surgical History / Comment(s): Abdominal aortic stenting [address] Valencia, right shoulder replacement, permanent pacemaker, bilateral knee replacements, bilateral hip replacement, left carotid stent, prostatectomy, drainage of psoas muscle abscess, right wrist surgery with removal of foreign body, right eye implantation, cholecystectomy, bilateral hernia repair Past Anesthesia/Blood Transfusion Reactions: No Reported Reaction Date of Last Stent Placement:: unknown Type of Cardiac Device: Permanent Pacemaker Device Placement Date:: unknown Past Psychological History: No Psychological Hx Reported Smoking Status: Former smoker Past Alcohol Use History: None Reported Past Drug Use History: None Reported - Past Family History Father Family Medical History: Unable to Obtain Additional Family Medical History / Comment(s): no heart disease Medications and Allergies Home Medications Medication Instructions Recorded Confirmed Type Allopurinol [Zyloprim] 100 mg PO HS 09/26/16 10/30/17 History Aspirin 81 mg PO HS 09/26/16 10/30/17 History Atorvastatin [Lipitor] 40 mg PO DAILY 09/26/16 10/30/17 History Metolazone [Zaroxolyn] 2.5 mg PO Q48H 09/26/16 10/30/17 History Potassium Chloride [Klor-Con 20] 50 meq PO AC-SUPPER 09/26/16 10/30/17 History Ranitidine HCl [Zantac] 150 mg PO DAILY 09/26/16 10/30/17 History traMADol HCL [Ultram] 50 mg PO Q8H PRN 09/26/16 10/30/17 History Calcitriol 0.25 mcg PO LOPEZ 02/12/17 10/30/17 History sitaGLIPtin [Januvia] 100 mg PO DAILY 02/12/17 10/30/17 History Furosemide [Lasix] 60 mg PO DAILY 03/05/17 10/30/17 History Cholecalciferol (Vitamin D3) 2,000 units PO DAILY 10/30/17 10/30/17 History [Vitamin D3] Folic Acid 1 mg PO DAILY 10/30/17 10/30/17 History Metoprolol Tartrate [Metoprolol 25 mg PO BID 10/30/17 10/30/17 History Tartrate] Allergies Allergy/AdvReac Type Severity Reaction Status Date / Time morphine Allergy Severe Unknown Verified 10/30/17 08:27 Physical Exam Vitals: Vital Signs Temp Pulse Pulse Resp BP BP Pulse Ox 10/30/17 12:00 97.4 F L 64 18 140/66 98 10/30/17 08:00 97.6 F 62 18 119/66 97 10/30/17 04:00 97.6 F 66 18 147/68 99 10/30/17 03:41 97.6 F 71 66 18 134/72 147/68 99 10/30/17 01:28 97.7 F 52 L 18 144/64 95 Intake and Output 10/29/17 10/30/17 10/30/17 22:59 06:59 14:59 Intake Total 140 182.84 Output Total 700 Balance -560 182.84 Intake: Intake, IV Titration 140 182.84 Amount Heparin Sod,Pork in 0.45% 40 182.84 NaCl 25,000 unit In 0.45 % NaCl 1 500ml.bag @ 12 UNITS/KG/HR 19.59 mls/hr IV .Q24H RINKU Rx#: [id number] Sodium Chloride 0.9% 1, 100 000 ml @ 100 mls/hr IV . Q10H STA Rx#:[id number] Output: Urine 700 Other: Voiding Method Toilet Toilet Urinal Urinal Weight 87 kg Results - Lab Results Most recent lab results Calcium 9.5 mg/dL (8.4-10.2) 10/30/17 07:33 Magnesium 1.8 mg/dL (1.6-2.3) 10/30/17 01:40 10/30/17 07:33 10/30/17 07:33 Assessment and Plan Plan: Assessment: #1. Nonoliguric acute kidney injury due to cardiorenal syndrome. Improved with dose of IV Lasix last night. Creatinine 1.99 today. #2. Systolic CHF with ejection fraction of 25-30% with moderate mitral regurgitation and pulmonary hypertension. #3. Chronic kidney disease stage III secondary to nephrosclerosis and cardiorenal syndrome with baseline creatinine near 1.5. UA from earlier this year was benign. CT of the scan revealed no evidence of hydronephrosis. #4. Intermediate probability of PE maintained on IV heparin. #5. Anemia of chronic kidney disease. Rule out iron deficiency. #6. Mild volume overload. Plan: Resume Lasix 40 mg orally once daily. Avoid nephrotoxic agents and hypotensive episodes. Check iron studies. Repeat electrolytes in the morning. Pulmonology recommendations pending. Thank you for the consultation. I will continue to follow the patient with you during his hospital stay.
[2017-10-30] MEDS: FUROSEMIDE 40 MG TAB PO SCH (15:51)
[2017-10-30 16:26] VITALS: BMI 29.1
--- NOTE | 2017-10-30 16:45 | US ---
EXAMINATION TYPE: US venous doppler duplex LE BI DATE OF EXAM: 10/30/2017 4:31 PM COMPARISON: US, Nuc med CLINICAL HISTORY: bilat. leg swelling. SIDE PERFORMED: Bilateral TECHNIQUE: The lower extremity deep venous system is examined utilizing real time linear array sonog asia with graded compression, doppler sonography and color-flow sonography. VESSELS IMAGED: External Iliac Vein (EIV) Common Femoral Vein Deep Femoral Vein Greater Saphenous Vein * Femoral Vein Popliteal Vein Small Saphenous Vein * Proximal Calf Veins (* superficial vessels) Patient has extensive edema bilaterally, worse on left leg. Also extensive calcifications of arteries especially in groin Right Leg: Negative for DVT Left Leg: Negative for DVT IMPRESSION: No evidence of deep venous thrombosis in left and right leg.
--- NOTE | 2017-10-30 17:00 | P.CNPUL ---
History of Present Illness Consult date: 10/30/17 Reason for consult: chest pain History of present illness: 87-year-old male patient with an extensive medical problems came in yesterday to the emergency department complaining of pain at the right shoulder extending posteriorly to the right shoulder blade and somewhat radiating to the right upper extremity down to the fingers. As part of further investigation, a d- dimer was done and the level was above 4 and the patient was worked up for pulmonary embolism. Note that the creatinine was elevated and this was consistent with acute kidney injury with a creatinine came up to 2.4 and based on that the VQ scan was done which came back of an intermediate probability. Patient was placed on IV heparin and the pulmonary consultation was requested. EKG is showing a paced rhythm knowing that the patient has a pacer/AICD in place. The patient had a normal troponin. At this point in time the patient on IV heparin and the patient is not having any active pain although the pain shoulder and upper extremity is still occurring on and off despite IV heparin. He has had a previous right shoulder replacement years back. The pain is actually nonspecific and stop related to exertion or movement and the patient is unable to relate this pain to any other activity. No cough. No sputum production. No chest tightness. No wheezing. He has chronic lymphedema in lower oximetry is bilaterally worse on the left and he was recently treated for a left lower extremities cellulitis with Levaquin. No previous history of DVT or pulmonary embolism. The patient has a previous history of abdominal aortic aneurysm that has been stented locally by Dr. Colón. At the later states she had further imaging and there was suspicion that he had an endovascular leak for which no further intervention was done. He was also treated for a iliopsoas muscle abscess by drainage and antibiotics more than 6 months ago. He is known to have coronary artery disease, congestion heart failure, diabetes mellitus, osteoarthritis, stage III chronic kidney disease, and previous history of some atrial fibrillation and the patient hasn't sick sinus syndrome for which she has a pacemaker in place. Review of Systems CONSTITUTIONAL: Denies fever. Denies chills. EYES: Denies blurred vision. Denies vision changes. Denies eye pain. EARS, NOSE, MOUTH & THROAT: Denies headache. Denies sore throat. Denies ear pain. CARDIOVASCULAR: Denies chest pain. Denies shortness of breath. Denies orthopnea. Denies PND. Denies palpitations. RESPIRATORY: Denies cough. GASTROINTESTINAL: Denies abdominal pain. Denies diarrhea. Denies constipation. Denies nausea. Denies vomiting. MUSCULOSKELETAL: Complains of right scapular pain. There is also pain along the right shoulder and right upper extremity. INTEGUMENTARY: Denies pruitis. Denies rash. NEUROLOGIC: Denies numbness. Denies tingling. Denies weakness. PSYCHIATRIC: Denies anxiety. Denies depression. ENDOCRINE: Denies fatigue. Denies weight change. Denies polydipsia. Denies polyurina. GENITOURINARY: Denies burning, hematuria or urgency with micturation. HEMATOLOGIC: Denies history of anemia. Denies bleeding. Past Medical History Past Medical History: Coronary Artery Disease (CAD), Cancer, Heart Failure, Diabetes Mellitus, Hyperlipidemia, Myocardial Infarction ([place]), Osteoarthritis ( OA), Pneumonia Additional Past Medical History / Comment(s): 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 diff, degenerative joint disease, moderate to severe mitral and tricuspid regurgitation, infrarenal abdominal aortic aneurysm status post stenting with endo-leak Last Myocardial Infarction Date:: unknown History of Any Multi-Drug Resistant Organisms: C-DIFF Date of last positivie culture/infection: 2011 MDRO Source:: stool Past Surgical History: Cholecystectomy, Heart Catheterization With Stent, Hernia Repair, Joint Replacement, Pacemaker Additional Past Surgical History / Comment(s): Abdominal aortic stenting [address] Valencia, right shoulder replacement, permanent pacemaker, bilateral knee replacements, bilateral hip replacement, left carotid stent, prostatectomy, drainage of psoas muscle abscess, right wrist surgery with removal of foreign body, right eye implantation, cholecystectomy, bilateral hernia repair Past Anesthesia/Blood Transfusion Reactions: No Reported Reaction Date of Last Stent Placement:: unknown Type of Cardiac Device: Permanent Pacemaker Device Placement Date:: unknown Past Psychological History: No Psychological Hx Reported Smoking Status: Former smoker Past Alcohol Use History: None Reported Past Drug Use History: None Reported - Past Family History Father Family Medical History: Unable to Obtain Additional Family Medical History / Comment(s): no heart disease Medications and Allergies Home Medications Medication Instructions Recorded Confirmed Type Allopurinol [Zyloprim] 100 mg PO HS 09/26/16 10/30/17 History Aspirin 81 mg PO HS 09/26/16 10/30/17 History Atorvastatin [Lipitor] 40 mg PO DAILY 09/26/16 10/30/17 History Metolazone [Zaroxolyn] 2.5 mg PO Q48H 09/26/16 10/30/17 History Potassium Chloride [Klor-Con 20] 50 meq PO AC-SUPPER 09/26/16 10/30/17 History Ranitidine HCl [Zantac] 150 mg PO DAILY 09/26/16 10/30/17 History traMADol HCL [Ultram] 50 mg PO Q8H PRN 09/26/16 10/30/17 History Calcitriol 0.25 mcg PO LOPEZ 02/12/17 10/30/17 History sitaGLIPtin [Januvia] 100 mg PO DAILY 02/12/17 10/30/17 History Furosemide [Lasix] 60 mg PO DAILY 03/05/17 10/30/17 History Cholecalciferol (Vitamin D3) 2,000 units PO DAILY 10/30/17 10/30/17 History [Vitamin D3] Folic Acid 1 mg PO DAILY 10/30/17 10/30/17 History Metoprolol Tartrate [Metoprolol 25 mg PO BID 10/30/17 10/30/17 History Tartrate] Allergies Allergy/AdvReac Type Severity Reaction Status Date / Time morphine Allergy Severe Unknown Verified 10/30/17 08:27 Physical Exam Vitals: Vital Signs Temp Pulse Pulse Resp BP BP Pulse Ox 10/30/17 16:00 97.4 F L 60 16 129/66 100 10/30/17 12:00 97.4 F L 64 18 140/66 98 10/30/17 08:00 97.6 F 62 18 119/66 97 10/30/17 04:00 97.6 F 66 18 147/68 99 10/30/17 03:41 97.6 F 71 66 18 134/72 147/68 99 10/30/17 01:28 97.7 F 52 L 18 144/64 95 Intake and Output 10/30/17 10/30/17 10/30/17 06:59 14:59 22:59 Intake Total 140 182.84 Output Total 700 Balance -560 182.84 Intake: Intake, IV Titration 140 182.84 Amount Heparin Sod,Pork in 0.45% 40 182.84 NaCl 25,000 unit In 0.45 % NaCl 1 500ml.bag @ 12 UNITS/KG/HR 19.59 mls/hr IV .Q24H RINKU Rx#: [id number] Sodium Chloride 0.9% 1, 100 000 ml @ 100 mls/hr IV . Q10H STA Rx#:[id number] Output: Urine 700 Other: Voiding Method Toilet Toilet Toilet Urinal Urinal Urinal Weight 87 kg GENERAL: This is a 87-year-old male in no apparent distress at the time of my examination. HEENT: Head is atraumatic, normocephalic. Pupils are equal, round. Sclerae anicteric. Conjunctivae are clear. Mucous membranes of the mouth are moist. Neck is supple. There is no jugular venous distention. No carotid bruit is heard. LUNGS: Clear to auscultation no wheezes, rales or rhonchi. No chest wall tenderness is noted on palpation or with deep breathing. Make a pocket is present over the left anterior chest area. HEART: Regular rate and rhythm with systolic ejection murmur at the base, no rubs or gallops. S1 and S2 heard. ABDOMEN: Soft, nontender. Bowel sounds are heard. No organomegaly noted. EXTREMITIES: Peripheral pulses palpated. Moderate left lower extremity edema 3+ , right lower extremity 2+. Pt has chronic lymphedema. NEUROLOGIC: Patient is awake, alert and oriented x3. Psychiatrically the patient has appropriate mood and affect. Results - Laboratory Findings CBC and BMP: 10/30/17 07:33 10/30/17 07:33 PT/INR, D-dimer PT 10.9 sec (9.0-12.0) 10/30/17 01:40 INR 1.1 (<1.2) 10/30/17 01:40 D-Dimer 4.96 mg/L FEU (<0.60) H 10/30/17 01:40 Abnormal lab findings: Abnormal Labs 10/30/17 10/30/17 10/30/17 01:40 01:40 01:40 RBC 2.95 L Hgb 9.5 L Hct 30.2 L MCV 102.5 H MCHC RDW 16.2 H Lymphocytes # 0.8 L APTT D-Dimer BUN 49 H Creatinine 2.30 H Glucose 169 H POC Glucose (mg/dL) Alkaline Phosphatase 143 H Total Creatine Kinase 26 L 10/30/17 10/30/17 10/30/17 01:40 06:52 07:33 RBC Hgb Hct MCV MCHC RDW Lymphocytes # APTT D-Dimer 4.96 H BUN Creatinine Glucose POC Glucose (mg/dL) 155 H Alkaline Phosphatase Total Creatine Kinase 24 L 10/30/17 10/30/17 10/30/17 07:33 07:33 11:53 RBC 2.88 L Hgb 9.3 L Hct 30.0 L MCV 104.0 H MCHC 30.9 L RDW Lymphocytes # APTT D-Dimer BUN 46 H Creatinine 1.99 H Glucose 147 H POC Glucose (mg/dL) 150 H Alkaline Phosphatase Total Creatine Kinase 10/30/17 10/30/17 12:09 12:09 RBC Hgb Hct MCV MCHC RDW Lymphocytes # APTT 89.9 H D-Dimer BUN Creatinine Glucose POC Glucose (mg/dL) Alkaline Phosphatase Total Creatine Kinase 25 L - Diagnostic Findings Chest x-ray: image reviewed Assessment and Plan Plan: On 1 acute nonspecific right shoulder/scapula/right upper extremity pain. The exact nature of this pain is not clear. The patient has been investigated for pulmonary embolism and currently has a positive d-dimer and a intermediate probability VQ scan. Obviously this is not enough to diagnosed with acute pulmonary embolism. A CT angios the chest twice a day however the patient has an acute kidney injury and as such she is unable to undergo the test. Patient is currently on IV heparin despite that he is having the same symptoms. Doppler of the lower extremities still pending 2 atypical chest pain 3 coronary artery disease 4 sick sinus syndrome status post pacemaker insertion 5 abdominal aortic aneurysm status post endovascular stent grafting with subsequent endovascular leak 6 CHF with an ejection fraction of 30-35% 7 hypertension 8 proximity to fibrillation current rhythm is paced 9 acute kidney injury on top of chronic renal failure. The patient has stage III chronic kidney disease 10 chronic lymphedema of the lower extremities with possibility of a DVT that cannot be completely excluded 11 psoas muscle hematoma/abscess, drained 12 previous history of C. diff colitis 13 mitral valve regurgitation moderate to severe in nature 14 poor baseline performance and functional status secondary to above-mentioned comorbidities aggressive 15 chronic anemia Plan The lengthy discussion with the patient's daughters. It will be very difficult to rule in or out the possibility of pulmonary embolism. At the same time the family understands the risk of anticoagulations pressure with his history of a aortic aneurysm endovascular leaks. We have decided to proceed with Doppler of lower extremities to rule out DVT. We will monitor the renal function and consider a CT angios the chest if the renal function normalizes. Meanwhile we' ll continue the IV heparin for now. Pulmonary embolism is doubtful in my opinion however this cannot be completely excluded. We'll make further recommendations based on his progress. Input from cardiology is been appreciated. Nephrology is to follow the acute kidney injury. We'll continue to follow.
[2017-10-30 17:13] LABS: Glucose,Whole Blood 327 mg/dL (75-99)
[2017-10-30 17:41] LABS: Hemoglobin A1C 6.4 % (4.0-6.0)
[2017-10-30 18:49] LABS: Iron Saturation 19.73 (15.00-50.00)
[2017-10-30 20:57] LABS: Glucose,Whole Blood 113 mg/dL (75-99)
[2017-10-30] MEDS: ALLOPURINOL 100 MG TAB PO SCH (22:15)
[2017-10-30] MEDS: ASPIRIN 81 MG PO SCH (22:15)
[2017-10-31] MEDS: HYDROmorphone 1 MG/ML 1 ML SYRINGE IVP PRN (05:19)
[2017-10-31] MEDS: HEPARIN SOD,PORK IN 0.45% NACL 25,000 UNIT in 0.45% NACL 1 500ML.BAG IV SCH (06:14)
[2017-10-31] MEDS: LEVOFLOXACIN 500 MG TAB PO SCH (06:17)
[2017-10-31 07:03] LABS: Basophils % (A) 1 %; Eosinophils # (A) 0.4 k/uL (0-0.7); Eosinophils % (A) 6 %; HCT 30.6 % (39.0-53.0); HGB 9.5 gm/dL (13.0-17.5); Hypochromasia Slight; Lymphocytes # (A) 0.7 k/uL (1.0-4.8); Lymphocytes % (A) 10 %; MCH 32.5 pg (25.0-35.0); MCHC 31.1 g/dL (31.0-37.0); MCV 104.5 fL (80.0-100.0); Macrocytosis Moderate; Monocytes # (A) 0.4 k/uL (0-1.0); Monocytes % (A) 6 %; Neutrophils # (A) 5.3 k/uL (1.3-7.7); Neutrophils % (A) 75 %; Platelet Count 155 k/uL (150-450); RBC 2.93 m/uL (4.30-5.90); RDW 15.2 % (11.5-15.5); WBC 7.1 k/uL (3.8-10.6)
[2017-10-31 07:14] LABS: Calcium 9.8 mg/dL (8.4-10.2); Potassium 3.9 mmol/L (3.5-5.1)
[2017-10-31 07:18] LABS: Glucose,Whole Blood 108 mg/dL (75-99)
[2017-10-31] MEDS ORDERED: HYDROmorphone 2 MG/ML 1 ML SYRINGE IVP PRN (08:43)
[2017-10-31] MEDS: INSULIN ASPART 100 UNIT/ML 1 ML 10 ML VIAL SQ SCH ×4 (08:57→20:38)
[2017-10-31] MEDS ORDERED: ASPIRIN 325 MG TAB PO SCH (09:00)
[2017-10-31] MEDS: CHOLECALCIFEROL 1,000 UNIT TAB PO SCH (09:01)
[2017-10-31] MEDS: FUROSEMIDE 40 MG TAB PO SCH (09:01)
[2017-10-31] MEDS: FOLIC ACID 1 MG TAB PO SCH (09:01)
[2017-10-31] MEDS: GABAPENTIN 100 MG CAP PO SCH (09:01)
[2017-10-31] MEDS: ATORVASTATIN 40 MG TAB PO SCH (09:01)
[2017-10-31] MEDS: ATENOLOL 50 MG TAB PO SCH (09:01)
[2017-10-31] MEDS: VIT A,C & E-LUTEIN-MINERALS 1 EACH TAB PO SCH (09:01)
[2017-10-31] MEDS: FAMOTIDINE 20 MG TAB PO SCH (09:01)
--- NOTE | 2017-10-31 11:50 | P.PN ---
Subjective Progress Note Date: 10/31/17 Patient having blood tinged sputum, and complaining of right shoulder pain with numbness and tingling going down his right hand. No acute events overnight Objective - Vital Signs Vital signs: Vital Signs Temp 97.6 F 10/31/17 08:00 Pulse 71 10/31/17 08:00 Resp 18 10/31/17 08:00 BP 108/58 10/31/17 08:00 Pulse Ox 95 10/31/17 08:00 Intake & Output 10/30/17 10/31/17 10/31/17 18:59 06:59 18:59 Intake Total 182.84 278.256 240 Output Total 500 Balance 182.84 -221.744 240 Weight 87 kg Intake: Intake, IV Titration 182.84 278.256 Amount Heparin Sod,Pork in 0.45% 182.84 278.256 NaCl 25,000 unit In 0.45 % NaCl 1 500ml.bag @ 12 UNITS/KG/HR 19.59 mls/hr IV .Q24H [facility] Rx#: [id number] Oral 240 Output: Urine 500 Other: Voiding Method Toilet Urinal Urinal Urinal # Voids 2 - Exam Constitutional: No acute distress, conversant, pleasant Eyes: Anicteric sclerae, moist conjunctiva, no lid-lag, PERRLA ENMT: NC/AT,Oropharynx clear, no erythema, exudates Neck:Supple, FROM, no masses, or JVD, No carotid bruits; No thyromegaly Lungs: Clear to auscultation, Clear to percussion, Normal respiratory effort, no accessory muscle use Cardiovascular: Heart regular in rate and rhythm, No murmurs, gallops, or rubs no peripheral edema Abdominal: Soft Nontender, nom distended, no guarding, no rebound or rigidity, Normoactive bowel sounds No hepatomegaly, No splenomegaly, No palpable mass No abdominal wall hernia noted Skin: Normal temperature, tone, texture, turgor, No induration No subcutaneous nodules, No rash, lesions, No ulcers Extremities:No digital cyanosis No clubbing, Pedal pulses intact and symmetrical Radial pulses intact and symmetrical Normal gait and station, No calf tenderness Psychiatric: Alert and oriented to person, place and time, Appropriate affect Intact judgement Neuro: Muscles Strength 5/5 in all 4 extremities, Sensation to light touch grossly present throughout, Cranial nerves II-XII grossly intact. No focal sensory deficits - Labs CBC & Chem 7: 10/31/17 06:26 10/31/17 06:26 Labs: Abnormal Lab Results - Last 24 Hours (Table) 10/30/17 10/30/17 10/30/17 Range/Units 01:40 07:33 11:53 RBC (4.30-5.90) m/uL Hgb (13.0-17.5) gm/dL Hct (39.0-53.0) % MCV (80.0-100.0) fL Lymphocytes # (1.0-4.8) k/uL APTT (22.0-30.0) sec BUN (9-20) mg/dL Creatinine (0.66-1.25) mg/dL Glucose (74-99) mg/dL POC Glucose (mg/dL) 150 H (75-99) mg/dL Hemoglobin A1c 6.4 H (4.0-6.0) % Iron 44 L (65-175) ug/dL TIBC 223 L (228-460) ug/dL Ferritin 529.7 H (22.0-322.0) ng/mL Total Creatine Kinase (55-170) U/L HDL Cholesterol (40-60) mg/dL 10/30/17 10/30/17 10/30/17 Range/Units 12:09 12:09 17:10 RBC (4.30-5.90) m/uL Hgb (13.0-17.5) gm/dL Hct (39.0-53.0) % MCV (80.0-100.0) fL Lymphocytes # (1.0-4.8) k/uL APTT 89.9 H (22.0-30.0) sec BUN (9-20) mg/dL Creatinine (0.66-1.25) mg/dL Glucose (74-99) mg/dL POC Glucose (mg/dL) 327 H (75-99) mg/dL Hemoglobin A1c (4.0-6.0) % Iron (65-175) ug/dL TIBC (228-460) ug/dL Ferritin (22.0-322.0) ng/mL Total Creatine Kinase 25 L (55-170) U/L HDL Cholesterol (40-60) mg/dL 10/30/17 10/30/17 10/31/17 Range/Units 19:04 20:46 06:26 RBC 2.93 L (4.30-5.90) m/uL Hgb 9.5 L (13.0-17.5) gm/dL Hct 30.6 L (39.0-53.0) % MCV 104.5 H (80.0-100.0) fL Lymphocytes # 0.7 L (1.0-4.8) k/uL APTT 75.6 H (22.0-30.0) sec BUN (9-20) mg/dL Creatinine (0.66-1.25) mg/dL Glucose (74-99) mg/dL POC Glucose (mg/dL) 113 H (75-99) mg/dL Hemoglobin A1c (4.0-6.0) % Iron (65-175) ug/dL TIBC (228-460) ug/dL Ferritin (22.0-322.0) ng/mL Total Creatine Kinase (55-170) U/L HDL Cholesterol (40-60) mg/dL 10/31/17 10/31/17 10/31/17 Range/Units 06:26 06:26 07:15 RBC (4.30-5.90) m/uL Hgb (13.0-17.5) gm/dL Hct (39.0-53.0) % MCV (80.0-100.0) fL Lymphocytes # (1.0-4.8) k/uL APTT 58.6 H (22.0-30.0) sec BUN 42 H (9-20) mg/dL Creatinine 1.66 H (0.66-1.25) mg/dL Glucose 110 H (74-99) mg/dL POC Glucose (mg/dL) 108 H (75-99) mg/dL Hemoglobin A1c (4.0-6.0) % Iron (65-175) ug/dL TIBC (228-460) ug/dL Ferritin (22.0-322.0) ng/mL Total Creatine Kinase (55-170) U/L HDL Cholesterol 34 L (40-60) mg/dL Assessment and Plan (1) Atypical chest pain Current Visit: Yes Status: Acute Code(s): R07.89 - OTHER CHEST PAIN SNOMED Code(s): 254700474 (2) Suspected pulmonary embolism Narrative/Plan: * VQ scan indicating moderate possibility of pulmonary embolism bilateral lower extremity Dopplers are negative for DVT * Unable to definitively rule out PE as patient's acute kidney injury restricted us from doing a CT angiography of his chest * Consider getting CT done with pretreating the patient with sodium bicarb and Mucomyst as his creatinine is improving * we'll continue with heparin drip at this time Current Visit: Yes Status: Acute Code(s): I26.99 - OTHER PULMONARY EMBOLISM WITHOUT ACUTE COR PULMONALE SNOMED Code(s): 931082697 (3) 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 Narrative/Plan: * Patient will need to be optimized on medical therapy will increase his gabapentin to 300 mg by mouth 3 times a day * Patient would be a severe risk of morbid rigidity for any sort of surgical intervention given his ejection fraction of 25-30% Current Visit: Yes Status: Acute Code(s): M47.22 - OTHER SPONDYLOSIS WITH RADICULOPATHY, CERVICAL REGION SNOMED Code(s): 193057369 (4) Acute kidney injury superimposed on chronic kidney disease Narrative/Plan: * Cardiorenal * Creatinine trending down to 1.66 from 2 * Continue to monitor creatinine * Consider pretreating with sodium bicarb and Mucomyst prior to getting CT angiography of the chest, will defer to nephrology for further recommendation Current Visit: Yes Status: Acute Code(s): N17.9 - ACUTE KIDNEY FAILURE, UNSPECIFIED; N18.9 - CHRONIC KIDNEY DISEASE, UNSPECIFIED SNOMED Code(s): 42391154 (5) Right shoulder pain Narrative/Plan: * Secondary to arthritis * Continue with regimen of the Tylenol and Ultram scheduled Current Visit: Yes Status: Acute Code(s): M25.511 - PAIN IN RIGHT SHOULDER SNOMED Code(s): 32895221 (6) Acute on chronic systolic (congestive) heart failure Narrative/Plan: * Mild exacerbation * Continue with Lasix 40 mg by mouth daily and atenolol Current Visit: Yes Status: Acute Code(s): I50.23 - ACUTE ON CHRONIC SYSTOLIC (CONGESTIVE) HEART FAILURE SNOMED Code(s): 780382116
[2017-10-31 12:02] LABS: Glucose,Whole Blood 203 mg/dL (75-99)
[2017-10-31] MEDS: ACETAMINOPHEN TAB 325 MG TAB PO SCH ×3 (12:44→22:47)
--- NOTE | 2017-10-31 14:26 | ECHOF ---
Referral Reason:chf,PE MEASUREMENTS -------- HEIGHT: 172.7 cm WEIGHT: 86.6 kg BP: 147/68 IVSd: 1.7 cm (0.6 - 1.1) LVIDd: 4.8 cm (3.9 - 5.3) LVPWd: 1.7 cm (0.6 - 1.1) EDV(Teich): 107 ml IVSs: 2.1 cm LVIDs: 4.1 cm LVPWs: 2.1 cm ESV(Teich): 73 ml EF(Teich): 32 % %FS: 15 % SV(Teich): 35 ml RVIDd: 4.1 cm (< 3.3) LALs A4C: 8.2 cm LAAs A4C: 35.4 cm LAESV A-L A4C: 130 ml LAESV MOD A4C: 127 ml LALs A2C: 7.4 cm LAAs A2C: 39.7 cm LAESV A-L A2C: 180 ml LAESV MOD A2C: 168 ml LAESV(A-L): 161 ml LAESV Index (A-L): 80.43 ml/m Ao Diam: 3.6 cm (2.0 - 3.7) LA Diam: 6.0 cm (2.7 - 3.8) AV Cusp: 1.1 cm (1.5 - 2.6) AV Vmax: 1.48 m/s AV maxP.89 mmHg TR Vmax: 3.99 m/s TR maxP.53 mmHg RAP: 15.00 mmHg RVSP: 78.53 mmHg FINDINGS -------- Atrial fibrillation. This was a technically adequate study. The left ventricular size is normal. There is moderate concentric left ventricular hypertrophy. O verall left ventricular systolic function is low-normal with, an EF between 50 - 55 %. The right ventricle is severely enlarged. The right ventricular systolic function is normal. LA is severely dilated >40 ml/m2 The right atrium is markedly enlarged. Electronic pacemaker lead seen in the right atrial cavity. There is moderate aortic valve sclerosis. Trace to mild aortic regurgitation. Possible aortic sten osis. The mitral valve leaflets are mildly thickened. Mild mitral annular calcification present. Severe mitral regurgitation is present. Severe tricuspid regurgitation present. There is severe pulmonary hypertension. The right ventric ular systolic pressure, as measured by Doppler, is 78.53mmHg. The pulmonic valve was not well visualized. The aortic root size is normal. The inferior vena cava is dilated with poor inspiratory collapse which is consistent with estimated r ight atrial pressure of 20 mmHg. The pericardium is normal. There is no pericardial effusion. CONCLUSIONS -------- 1. Atrial fibrillation. 2. This was a technically adequate study. 3. The left ventricular size is normal. 4. There is moderate concentric left ventricular hypertrophy. 5. Overall left ventricular systolic function is low-normal with, an EF between 50 - 55 %. 6. The right ventricle is severely enlarged. 7. The right ventricular systolic function is normal. 8. LA is severely dilated >40 ml/m2 9. The right atrium is markedly enlarged. 10. Electronic pacemaker lead seen in the right atrial cavity. 11. There is moderate aortic valve sclerosis. 12. Trace to mild aortic regurgitation. 13. Possible aortic stenosis. 14. The mitral valve leaflets are mildly thickened. 15. Mild mitral annular calcification present. 16. Severe mitral regurgitation is present. 17. Severe tricuspid regurgitation present. 18. There is severe pulmonary hypertension. 19. The right ventricular systolic pressure, as measured by Doppler, is 78.53mmHg. 20. The pulmonic valve was not well visualized. 21. The aortic root size is normal. 22. The inferior vena cava is dilated with poor inspiratory collapse which is consistent with estimat ed right atrial pressure of 20 mmHg. 23. There is no pericardial effusion. PLASTIC EYE TECHNICIAN: Darwin Reeves RDCS
--- NOTE | 2017-10-31 15:05 | P.PN ---
Subjective Progress Note Date: 10/31/17 87-year-old male patient with an extensive medical problems came in yesterday to the emergency department complaining of pain at the right shoulder extending posteriorly to the right shoulder blade and somewhat radiating to the right upper extremity down to the fingers. As part of further investigation, a d- dimer was done and the level was above 4 and the patient was worked up for pulmonary embolism. Note that the creatinine was elevated and this was consistent with acute kidney injury with a creatinine came up to 2.4 and based on that the VQ scan was done which came back of an intermediate probability. Patient was placed on IV heparin and the pulmonary consultation was requested. EKG is showing a paced rhythm knowing that the patient has a pacer/AICD in place. The patient had a normal troponin. At this point in time the patient on IV heparin and the patient is not having any active pain although the pain shoulder and upper extremity is still occurring on and off despite IV heparin. He has had a previous right shoulder replacement years back. The pain is actually nonspecific and stop related to exertion or movement and the patient is unable to relate this pain to any other activity. No cough. No sputum production. No chest tightness. No wheezing. He has chronic lymphedema in lower oximetry is bilaterally worse on the left and he was recently treated for a left lower extremities cellulitis with Levaquin. No previous history of DVT or pulmonary embolism. The patient has a previous history of abdominal aortic aneurysm that has been stented locally by Dr. Colón. At the later states she had further imaging and there was suspicion that he had an endovascular leak for which no further intervention was done. He was also treated for a iliopsoas muscle abscess by drainage and antibiotics more than 6 months ago. He is known to have coronary artery disease, congestion heart failure, diabetes mellitus, osteoarthritis, stage III chronic kidney disease, and previous history of some atrial fibrillation and the patient hasn't sick sinus syndrome for which she has a pacemaker in place. On 10/31/2017 I'm seeing this patient for a follow-up. The patient is awake and alert. Has no chest pain. No shortness of breath. Right shoulder is still hurting in his radiating down to the right upper arm. There is also involvement of the hands. The pain is on and off. He has not responded to IV heparin. Doppler of the lower extremities came back negative. Hemoglobin is stable at 9.5. Creatinine is also improved and is down to 1.6. Objective - Vital Signs Vital signs: Vital Signs Temp 97.7 F 10/31/17 12:00 Pulse 63 10/31/17 12:00 Resp 18 10/31/17 12:00 BP 105/58 10/31/17 12:00 Pulse Ox 98 10/31/17 12:00 Intake & Output 10/30/17 10/31/17 10/31/17 18:59 06:59 18:59 Intake Total 182.84 278.256 880 Output Total 500 Balance 182.84 -221.744 880 Weight 87 kg Intake: Intake, IV Titration 182.84 278.256 Amount Heparin Sod,Pork in 0.45% 182.84 278.256 NaCl 25,000 unit In 0.45 % NaCl 1 500ml.bag @ 12 UNITS/KG/HR 19.59 mls/hr IV .Q24H [facility] Rx#: [id number] Oral 480 Other 400 Output: Urine 500 Other: Voiding Method Toilet Urinal Urinal Urinal # Voids 2 1 - Exam GENERAL: This is a 87-year-old male in no apparent distress at the time of my examination. HEENT: Head is atraumatic, normocephalic. Pupils are equal, round. Sclerae anicteric. Conjunctivae are clear. Mucous membranes of the mouth are moist. Neck is supple. There is no jugular venous distention. No carotid bruit is heard. LUNGS: Clear to auscultation no wheezes, rales or rhonchi. No chest wall tenderness is noted on palpation or with deep breathing. Make a pocket is present over the left anterior chest area. HEART: Regular rate and rhythm with systolic ejection murmur at the base, no rubs or gallops. S1 and S2 heard. ABDOMEN: Soft, nontender. Bowel sounds are heard. No organomegaly noted. EXTREMITIES: Peripheral pulses palpated. Moderate left lower extremity edema 3+ , right lower extremity 2+. Pt has chronic lymphedema. NEUROLOGIC: Patient is awake, alert and oriented x3. Psychiatrically the patient has appropriate mood and affect. - Labs CBC & Chem 7: 10/31/17 06:26 10/31/17 06:26 Labs: Abnormal Lab Results - Last 24 Hours (Table) 10/30/17 10/30/17 10/30/17 Range/Units 01:40 07:33 17:10 RBC (4.30-5.90) m/uL Hgb (13.0-17.5) gm/dL Hct (39.0-53.0) % MCV (80.0-100.0) fL Lymphocytes # (1.0-4.8) k/uL APTT (22.0-30.0) sec BUN (9-20) mg/dL Creatinine (0.66-1.25) mg/dL Glucose (74-99) mg/dL POC Glucose (mg/dL) 327 H (75-99) mg/dL Hemoglobin A1c 6.4 H (4.0-6.0) % Iron 44 L (65-175) ug/dL TIBC 223 L (228-460) ug/dL Ferritin 529.7 H (22.0-322.0) ng/mL HDL Cholesterol (40-60) mg/dL 10/30/17 10/30/17 10/31/17 Range/Units 19:04 20:46 06:26 RBC 2.93 L (4.30-5.90) m/uL Hgb 9.5 L (13.0-17.5) gm/dL Hct 30.6 L (39.0-53.0) % MCV 104.5 H (80.0-100.0) fL Lymphocytes # 0.7 L (1.0-4.8) k/uL APTT 75.6 H (22.0-30.0) sec BUN (9-20) mg/dL Creatinine (0.66-1.25) mg/dL Glucose (74-99) mg/dL POC Glucose (mg/dL) 113 H (75-99) mg/dL Hemoglobin A1c (4.0-6.0) % Iron (65-175) ug/dL TIBC (228-460) ug/dL Ferritin (22.0-322.0) ng/mL HDL Cholesterol (40-60) mg/dL 10/31/17 10/31/17 10/31/17 Range/Units 06:26 06:26 07:15 RBC (4.30-5.90) m/uL Hgb (13.0-17.5) gm/dL Hct (39.0-53.0) % MCV (80.0-100.0) fL Lymphocytes # (1.0-4.8) k/uL APTT 58.6 H (22.0-30.0) sec BUN 42 H (9-20) mg/dL Creatinine 1.66 H (0.66-1.25) mg/dL Glucose 110 H (74-99) mg/dL POC Glucose (mg/dL) 108 H (75-99) mg/dL Hemoglobin A1c (4.0-6.0) % Iron (65-175) ug/dL TIBC (228-460) ug/dL Ferritin (22.0-322.0) ng/mL HDL Cholesterol 34 L (40-60) mg/dL 10/31/17 Range/Units 11:59 RBC (4.30-5.90) m/uL Hgb (13.0-17.5) gm/dL Hct (39.0-53.0) % MCV (80.0-100.0) fL Lymphocytes # (1.0-4.8) k/uL APTT (22.0-30.0) sec BUN (9-20) mg/dL Creatinine (0.66-1.25) mg/dL Glucose (74-99) mg/dL POC Glucose (mg/dL) 203 H (75-99) mg/dL Hemoglobin A1c (4.0-6.0) % Iron (65-175) ug/dL TIBC (228-460) ug/dL Ferritin (22.0-322.0) ng/mL HDL Cholesterol (40-60) mg/dL Assessment and Plan Plan: On 1 acute nonspecific right shoulder/scapula/right upper extremity pain. The exact nature of this pain is not clear. The patient has been investigated for pulmonary embolism and currently has a positive d-dimer and a intermediate probability VQ scan. Obviously this is not enough to diagnosed with acute pulmonary embolism. 3 coronary artery disease 4 sick sinus syndrome status post pacemaker insertion 5 abdominal aortic aneurysm status post endovascular stent grafting with subsequent endovascular leak 6 CHF with an ejection fraction of 30-35% 7 hypertension 8 paroxysmal atrial fibrillation current rhythm is paced 9 acute kidney injury on top of chronic renal failure. The patient has stage III chronic kidney disease 10 chronic lymphedema of the lower extremities with possibility of a DVT that cannot be completely excluded 11 psoas muscle hematoma/abscess, drained 12 previous history of C. diff colitis 13 mitral valve regurgitation moderate to severe in nature 14 poor baseline performance and functional status secondary to above-mentioned comorbidities aggressive 15 chronic anemia Plan The patient is doing well. I think the shoulder pain is skeletal in nature. On clinical grounds, pulmonary embolism is doubtful. Doppler of lower extremities negative. I would suggest this continued IV heparin putting the patient subcu heparin for DVT prophylaxis. Creatinine is improving is down to 1.6. Is a concern of pulmonary embolism remains in the future, a CT angios the chest may be considered once the renal function improves. Creatinine is down to 1.6. For now I think it's reasonable to switch this patient to subcu heparin and this continued IV heparin. Hemoglobin stable for now.
[2017-10-31] MEDS: traMADol 50 MG TAB PO SCH ×2 (16:25→20:20)
[2017-10-31 17:08] LABS: Glucose,Whole Blood 133 mg/dL (75-99)
[2017-10-31] MEDS: GABAPENTIN 300 MG CAP PO SCH ×2 (18:00→20:21)
[2017-10-31] MEDS: HEPARIN SODIUM,PORCINE 5,000 UNIT/ML 1 ML VIAL SQ SCH ×2 (18:00→22:47)
[2017-10-31] MEDS: ALLOPURINOL 100 MG TAB PO SCH (20:21)
[2017-10-31] MEDS: ASPIRIN 81 MG PO SCH (20:21)
--- NOTE | 2017-10-31 20:25 | PN ---
PROGRESS NOTE The patient is seen for follow up of acute kidney injury on top of chronic kidney disease, he was admitted to the hospital for severe pain in his back and right arm. VQ does show intermediate probability for PE and currently patient is on IV heparin. The patient's serum creatinine is improved to 1.6 today, who is admitted with a creatinine of 2.3. Currently is not on any IV fluids. Lasix at 40 mg p.o. daily for nephrotoxic medications. EXAMINATION: Blood pressure is 105/58, heart rate 63 per minute. Patient is afebrile. Examination of the heart S1, S2. Examination of the lungs bilateral breath sounds are heard. Examination lower extremity shows no significant edema. LAB: Show sodium 140, potassium 3.9, BUN 42, serum creatinine 1.6. ASSESSMENT: 1. Acute kidney injury on top of chronic kidney disease. Acute kidney injury was likely prerenal currently improved. 2. Chronic kidney disease stage IIIB to stage IV with previous creatinine at 1.4 to 1.6, but as outpatient recently, patient's creatinine was at 2.8. 3. Anemia of chronic disease. Rule out iron deficiency. 4. Intermediate probability for pulmonary embolism on V/Q scan. The patient is being evaluated by Pulmonary and heparin will be discontinued. 5. History of congestive heart failure with ejection fraction 30-35%. 6. Paroxysmal atrial fibrillation. 7. Right shoulder pain with negative cardiac exam and V/Q scan as discussed above. PLAN: Patient is stable for discharge from a nephrology standpoint. He should continue with the current dose of Lasix. MMODL / IJN: [id number] /
[2017-10-31 20:32] LABS: Glucose,Whole Blood 152 mg/dL (75-99)
[2017-11-01] MEDS: ACETAMINOPHEN TAB 325 MG TAB PO SCH ×4 (05:27→23:05)
[2017-11-01 07:00] LABS: Glucose,Whole Blood 131 mg/dL (75-99)
[2017-11-01 07:46] LABS: HCT 27.7 % (39.0-53.0); HGB 8.7 gm/dL (13.0-17.5); Hypochromasia Slight; MCH 32.7 pg (25.0-35.0); MCHC 31.3 g/dL (31.0-37.0); MCV 104.7 fL (80.0-100.0); Macrocytosis Moderate; Mean Platelet Volume 7.9; Platelet Count 145 k/uL (150-450); RBC 2.65 m/uL (4.30-5.90); RDW 15.2 % (11.5-15.5); WBC 6.7 k/uL (3.8-10.6)
[2017-11-01] MEDS: INSULIN ASPART 100 UNIT/ML 1 ML 10 ML VIAL SQ SCH ×4 (07:48→20:40)
[2017-11-01 08:09] LABS: Potassium 4.3 mmol/L (3.5-5.1)
[2017-11-01] MEDS: traMADol 50 MG TAB PO SCH ×3 (08:36→19:47)
[2017-11-01] MEDS: VIT A,C & E-LUTEIN-MINERALS 1 EACH TAB PO SCH (08:37)
[2017-11-01] MEDS: CHOLECALCIFEROL 1,000 UNIT TAB PO SCH (08:37)
[2017-11-01] MEDS: GABAPENTIN 300 MG CAP PO SCH ×3 (08:38→19:47)
[2017-11-01] MEDS: ATORVASTATIN 40 MG TAB PO SCH (08:38)
[2017-11-01] MEDS: FOLIC ACID 1 MG TAB PO SCH (08:38)
[2017-11-01] MEDS: FAMOTIDINE 20 MG TAB PO SCH (08:38)
--- NOTE | 2017-11-01 10:35 | XR ---
EXAMINATION TYPE: XR chest 2V DATE OF EXAM: 11/01/2017 HISTORY: chf. REFERENCE: Previous study dated 10/30/2017. FINDINGS: There is a right shoulder arthroplasty in place. There is a bipolar pacemaker in place on t he left. The lungs are overinflated. The heart is enlarged. There is vascular congestion with subtle interstit ial change. I could not exclude some degree of pulmonary edema. There is blunting of both CP angles. I could not exclude tiny effusions. The overall appearance has improved. IMPRESSION: RESOLVING CHANGES OF PULMONARY EDEMA.
[2017-11-01] MEDS: HEPARIN SODIUM,PORCINE 5,000 UNIT/ML 1 ML VIAL SQ SCH ×3 (10:53→23:04)
--- NOTE | 2017-11-01 11:44 | P.PN ---
Subjective Progress Note Date: 11/01/17 patient with daughter at bedside reporting that,f right shoulder pain with numbness and tingling going down his right hand is somewhat improved. No acute events overnight Objective - Vital Signs Vital signs: Vital Signs Temp 97.5 F L 11/01/17 07:27 Pulse 63 11/01/17 11:17 Resp 16 11/01/17 11:17 BP 99/56 11/01/17 11:17 Pulse Ox 99 11/01/17 11:17 Intake & Output 10/31/17 11/01/17 11/01/17 18:59 06:59 18:59 Intake Total 880 250 480 Balance 880 250 480 Weight 87 kg Intake: Oral 480 250 480 Other 400 Other: Voiding Method Urinal Urinal Urinal # Voids 1 1 - Exam Constitutional: No acute distress, conversant, pleasant Eyes: Anicteric sclerae, moist conjunctiva, no lid-lag, PERRLA ENMT: NC/AT,Oropharynx clear, no erythema, exudates Neck:Supple, FROM, no masses, or JVD, No carotid bruits; No thyromegaly Lungs: Clear to auscultation, Clear to percussion, Normal respiratory effort, no accessory muscle use Cardiovascular: egular rate and rhythm with systolic ejection murmur at the base , no rubs or gallops. +2 left lower extremity peripheral pitting e adrienne Abdominal: Soft Nontender, nom distended, no guarding, no rebound or rigidity, Normoactive bowel sounds No hepatomegaly, No splenomegaly, No palpable mass No abdominal wall hernia noted Skin: Normal temperature, tone, texture, turgor, No induration No subcutaneous nodules, No rash, lesions, No ulcers Extremities:No digital cyanosis No clubbing, Pedal pulses intact and symmetrical Radial pulses intact and symmetrical Normal gait and station, No calf tenderness. right shoulder range of motion limited due to pain Psychiatric: Alert and oriented to person, place and time, Appropriate affect Intact judgement Neuro: Muscles Strength 5/5 in all 4 extremities, Sensation to light touch grossly present throughout, Cranial nerves II-XII grossly intact. No focal sensory deficits - Labs CBC & Chem 7: 11/01/17 06:41 11/01/17 06:41 Labs: Abnormal Lab Results - Last 24 Hours (Table) 10/31/17 10/31/17 10/31/17 Range/Units 11:59 17:04 20:31 RBC (4.30-5.90) m/uL Hgb (13.0-17.5) gm/dL Hct (39.0-53.0) % MCV (80.0-100.0) fL Plt Count (150-450) k/uL Sodium (137-145) mmol/L BUN (9-20) mg/dL Creatinine (0.66-1.25) mg/dL Glucose (74-99) mg/dL POC Glucose (mg/dL) 203 H 133 H 152 H (75-99) mg/dL 11/01/17 11/01/17 11/01/17 Range/Units 06:40 06:41 06:41 RBC 2.65 L (4.30-5.90) m/uL Hgb 8.7 L (13.0-17.5) gm/dL Hct 27.7 L (39.0-53.0) % MCV 104.7 H (80.0-100.0) fL Plt Count 145 L (150-450) k/uL Sodium 136 L (137-145) mmol/L BUN 55 H (9-20) mg/dL Creatinine 2.26 H (0.66-1.25) mg/dL Glucose 120 H (74-99) mg/dL POC Glucose (mg/dL) 131 H (75-99) mg/dL Assessment and Plan (1) Acute kidney injury superimposed on chronic kidney disease Narrative/Plan: * Cardiorenal * Creatinine trending down to 2.26 from 1.66 * Continue to monitor creatinine renal following Dr Coffey * Current Visit: Yes Status: Acute Code(s): N17.9 - ACUTE KIDNEY FAILURE, UNSPECIFIED; N18.9 - CHRONIC KIDNEY DISEASE, UNSPECIFIED SNOMED Code(s): 09178042 (2) Acute on chronic systolic (congestive) heart failure Narrative/Plan: * Mild exacerbation repeat chest x-ray showing improvement in the pulmonary edema, echocardiogram showing ejection fraction of 50-55% with severely dilated left atrium * Continue to hold patient's meds as the patient's blood pressure is been borderline * Reconsult cardiology for further recommendations regarding his medication Current Visit: Yes Status: Acute Code(s): I50.23 - ACUTE ON CHRONIC SYSTOLIC (CONGESTIVE) HEART FAILURE SNOMED Code(s): 013332270 (3) 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 Narrative/Plan: * Patient will need to be optimized on medical therapy will increase his gabapentin to 300 mg by mouth 3 times a day * Patient would be a severe risk of morbid rigidity for any sort of surgical intervention given his ejection fraction of 25-30% Current Visit: Yes Status: Acute Code(s): M47.22 - OTHER SPONDYLOSIS WITH RADICULOPATHY, CERVICAL REGION SNOMED Code(s): 783634825 (4) Right shoulder pain Narrative/Plan: * Secondary to arthritis * Continue with regimen of the Tylenol and Ultram and gabapentinscheduled Current Visit: Yes Status: Acute Code(s): M25.511 - PAIN IN RIGHT SHOULDER SNOMED Code(s): 16441095 (5) Suspected pulmonary embolism Narrative/Plan: * VQ scan indicating moderate possibility of pulmonary embolism bilateral lower extremity Dopplers are negative for DVT * per pulmonary DrLito Morley patient was discontinued off heparin drip and cleared from a pulmonary standpoint for any suspicion of PE at this time Current Visit: Yes Status: Acute Code(s): I26.99 - OTHER PULMONARY EMBOLISM WITHOUT ACUTE COR PULMONALE SNOMED Code(s): 222659917 (6) Atypical chest pain Narrative/Plan: * atypical chest pain -EKG and cardiac enzymes negative for any suggestion of acute ischemia, likely muscle skeletal secondary to right shoulder DJD and cervical DJD with radiculopathy Current Visit: Yes Status: Resolved Code(s): R07.89 - OTHER CHEST PAIN SNOMED Code(s): 788663570
[2017-11-01 12:26] LABS: Glucose,Whole Blood 144 mg/dL (75-99)
--- NOTE | 2017-11-01 13:01 | P.PN ---
Subjective Progress Note Date: 11/01/17 Principal diagnosis: Right shoulder pain, no clear evidence of PE 87-year-old male patient with an extensive medical problems came in yesterday to the emergency department complaining of pain at the right shoulder extending posteriorly to the right shoulder blade and somewhat radiating to the right upper extremity down to the fingers. As part of further investigation, a d- dimer was done and the level was above 4 and the patient was worked up for pulmonary embolism. Note that the creatinine was elevated and this was consistent with acute kidney injury with a creatinine came up to 2.4 and based on that the VQ scan was done which came back of an intermediate probability. Patient was placed on IV heparin and the pulmonary consultation was requested. EKG is showing a paced rhythm knowing that the patient has a pacer/AICD in place. The patient had a normal troponin. At this point in time the patient on IV heparin and the patient is not having any active pain although the pain shoulder and upper extremity is still occurring on and off despite IV heparin. He has had a previous right shoulder replacement years back. The pain is actually nonspecific and stop related to exertion or movement and the patient is unable to relate this pain to any other activity. No cough. No sputum production. No chest tightness. No wheezing. He has chronic lymphedema in lower oximetry is bilaterally worse on the left and he was recently treated for a left lower extremities cellulitis with Levaquin. No previous history of DVT or pulmonary embolism. The patient has a previous history of abdominal aortic aneurysm that has been stented locally by Dr. Colón. At the later states she had further imaging and there was suspicion that he had an endovascular leak for which no further intervention was done. He was also treated for a iliopsoas muscle abscess by drainage and antibiotics more than 6 months ago. He is known to have coronary artery disease, congestion heart failure, diabetes mellitus, osteoarthritis, stage III chronic kidney disease, and previous history of some atrial fibrillation and the patient hasn't sick sinus syndrome for which she has a pacemaker in place. On 10/31/2017 I'm seeing this patient for a follow-up. The patient is awake and alert. Has no chest pain. No shortness of breath. Right shoulder is still hurting in his radiating down to the right upper arm. There is also involvement of the hands. The pain is on and off. He has not responded to IV heparin. Doppler of the lower extremities came back negative. Hemoglobin is stable at 9.5. Creatinine is also improved and is down to 1.6. The patient is seen again today 11/01/2017. He is seen on the observation unit. He is currently sitting up in a chair at the bedside. He is awake and alert in no acute distress. Today's chest x-ray reveals resolving pulmonary edema. He denies any worsening shortness of breath, cough or congestion. He is maintaining O2 saturations in the 90s on room air. His creatinine continues to climb. Currently at 2.26. Objective - Vital Signs Vital signs: Vital Signs Temp 97.5 F L 11/01/17 07:27 Pulse 63 11/01/17 11:17 Resp 16 11/01/17 11:17 BP 99/56 11/01/17 11:17 Pulse Ox 99 11/01/17 11:17 Intake & Output 10/31/17 11/01/17 11/01/17 18:59 06:59 18:59 Intake Total 880 250 480 Output Total 300 Balance 880 250 180 Weight 87 kg Intake: Oral 480 250 480 Other 400 Output: Urine 300 Other: Voiding Method Urinal Urinal Urinal # Voids 1 1 - Exam GENERAL: This is a 87-year-old male in no apparent distress at the time of my examination. HEENT: Head is atraumatic, normocephalic. Pupils are equal, round. Sclerae anicteric. Conjunctivae are clear. Mucous membranes of the mouth are moist. Neck is supple. There is no jugular venous distention. No carotid bruit is heard. LUNGS: Clear to auscultation no wheezes, rales or rhonchi. No chest wall tenderness is noted on palpation or with deep breathing. Make a pocket is present over the left anterior chest area. HEART: Regular rate and rhythm with systolic ejection murmur at the base, no rubs or gallops. S1 and S2 heard. ABDOMEN: Soft, nontender. Bowel sounds are heard. No organomegaly noted. EXTREMITIES: Peripheral pulses palpated. Moderate left lower extremity edema 3+ , right lower extremity 2+. Pt has chronic lymphedema. NEUROLOGIC: Patient is awake, alert and oriented x3. Psychiatrically the patient has appropriate mood and affect. - Labs CBC & Chem 7: 11/01/17 06:41 11/01/17 06:41 Labs: Abnormal Lab Results - Last 24 Hours (Table) 10/31/17 10/31/17 11/01/17 Range/Units 17:04 20:31 06:40 RBC (4.30-5.90) m/uL Hgb (13.0-17.5) gm/dL Hct (39.0-53.0) % MCV (80.0-100.0) fL Plt Count (150-450) k/uL Sodium (137-145) mmol/L BUN (9-20) mg/dL Creatinine (0.66-1.25) mg/dL Glucose (74-99) mg/dL POC Glucose (mg/dL) 133 H 152 H 131 H (75-99) mg/dL 11/01/17 11/01/17 11/01/17 Range/Units 06:41 06:41 12:15 RBC 2.65 L (4.30-5.90) m/uL Hgb 8.7 L (13.0-17.5) gm/dL Hct 27.7 L (39.0-53.0) % MCV 104.7 H (80.0-100.0) fL Plt Count 145 L (150-450) k/uL Sodium 136 L (137-145) mmol/L BUN 55 H (9-20) mg/dL Creatinine 2.26 H (0.66-1.25) mg/dL Glucose 120 H (74-99) mg/dL POC Glucose (mg/dL) 144 H (75-99) mg/dL Assessment and Plan Assessment: Impression: 1 acute nonspecific right shoulder/scapula/right upper extremity pain. The exact nature of this pain is not clear. The patient has been investigated for pulmonary embolism and currently has a positive d-dimer and a intermediate probability VQ scan. Obviously this is not enough to diagnosed with acute pulmonary embolism. 3 coronary artery disease 4 sick sinus syndrome status post pacemaker insertion 5 abdominal aortic aneurysm status post endovascular stent grafting with subsequent endovascular leak 6 CHF with an ejection fraction of 30-35% 7 hypertension 8 paroxysmal atrial fibrillation current rhythm is paced 9 acute kidney injury on top of chronic renal failure. The patient has stage III chronic kidney disease 10 chronic lymphedema of the lower extremities with possibility of a DVT that cannot be completely excluded 11 psoas muscle hematoma/abscess, drained 12 previous history of C. diff colitis 13 mitral valve regurgitation moderate to severe in nature 14 poor baseline performance and functional status secondary to above-mentioned comorbidities aggressive 15 chronic anemia Plan: Patient was seen and evaluated by Dr. Morley. The patient is quite stable from the pulmonary standpoint. He is maintaining good O2 saturations in the 90s on room air. Nephrology is on the case regarding his acute renal failure. We'll follow with the patient on as-needed basis. I, the cosigning physician, have performed a history and physical examination on the patient. Lung sounds are clear. Maintaining good O2 saturations in the 90s on room air. I have discussed the assessment and plan of care with my nurse practitioner, Charlee Cook. I attest the above documented note as dictated by her.
[2017-11-01] MEDS: ATENOLOL 50 MG TAB PO SCH ×2 (15:09→15:13)
--- NOTE | 2017-11-01 16:05 | PN ---
PROGRESS NOTE Mr. Hart is an 87-year-old male who presented to the hospital with symptoms of shoulder discomfort with no evidence to suggest an ischemic etiology. The patient has a known history of atrial fibrillation, status post permanent pacemaker implantation, history of coronary artery disease and history of cardiomyopathy. He is feeling better today. He continues to be dyspneic on exertion, but he has no chest pain. His blood pressure is on the low side. He has no dizziness or palpitation. He has no evidence to suggest pacemaker malfunction. He is lying supine and is comfortable with that. Chest x-ray revealed improvement in his pulmonary edema. He continues to be at this time on atenolol 75 mg once a day, aspirin once a day, Lipitor 40 mg daily. PHYSICAL EXAMINATION: Blood pressure running in the high 90s with a heart rate in the 60s. LUNGS: No wheezes appreciated. HEART: S1, S2 with a systolic murmur. No diastolic murmur. No rub. ABDOMEN: Soft, nontender. EXTREMITIES: Moiz wrapping on the left lower extremity with 2+ edema with less edema on the right side. LAB DATA: Lab data revealed a hemoglobin of 8.7. BUN and creatinine 55 and 2.26, which is worse than yesterday. IMPRESSION: 1. Shoulder discomfort with no evidence to suggest ischemia. 2. History of atrial fibrillation with permanent pacemaker implantation. 3. Worsening renal function. 4. Heart failure, improving. 5. Hypotension. RECOMMENDATION: From the cardiac standpoint because of the low blood pressure, I will cut down the dose of his beta rissa to 50 mg daily. If it remains low, it will can be cut down further. Depending on his progress, further recommendation will be made. MMODL / IJN: [id number] /
[2017-11-01 17:01] LABS: Glucose,Whole Blood 158 mg/dL (75-99)
[2017-11-01] MEDS: ASPIRIN 81 MG PO SCH (19:47)
[2017-11-01] MEDS: ALLOPURINOL 100 MG TAB PO SCH (19:47)
[2017-11-01 20:38] LABS: Glucose,Whole Blood 132 mg/dL (75-99)
[2017-11-01 23:25] VITALS: RESP 16
[2017-11-02] MEDS: ACETAMINOPHEN TAB 325 MG TAB PO SCH (04:59)
[2017-11-02] MEDS ORDERED: CALCITRIOL 0.25 MCG CAP PO SCH (05:35)
[2017-11-02 07:01] LABS: Glucose,Whole Blood 158 mg/dL (75-99)
[2017-11-02] MEDS: traMADol 50 MG TAB PO SCH (08:06)
[2017-11-02] MEDS: VIT A,C & E-LUTEIN-MINERALS 1 EACH TAB PO SCH (08:06)
[2017-11-02] MEDS: FOLIC ACID 1 MG TAB PO SCH (08:06)
[2017-11-02] MEDS: CHOLECALCIFEROL 1,000 UNIT TAB PO SCH (08:07)
[2017-11-02] MEDS: INSULIN ASPART 100 UNIT/ML 1 ML 10 ML VIAL SQ SCH (08:08)
[2017-11-02] MEDS: ATENOLOL 50 MG TAB PO SCH (08:08)
[2017-11-02] MEDS: ATORVASTATIN 40 MG TAB PO SCH (08:08)
[2017-11-02] MEDS: HEPARIN SODIUM,PORCINE 5,000 UNIT/ML 1 ML VIAL SQ SCH (08:08)
[2017-11-02 08:16] LABS: HCT 29.3 % (39.0-53.0); HGB 8.9 gm/dL (13.0-17.5); Hypochromasia Slight; MCH 31.8 pg (25.0-35.0); MCHC 30.3 g/dL (31.0-37.0); MCV 104.9 fL (80.0-100.0); Macrocytosis Moderate; Mean Platelet Volume 8.8; Platelet Count 135 k/uL (150-450); RBC 2.79 m/uL (4.30-5.90); RDW 15.1 % (11.5-15.5); WBC 7.4 k/uL (3.8-10.6)
[2017-11-02 08:27] LABS: Calcium 9.4 mg/dL (8.4-10.2); Potassium 4.4 mmol/L (3.5-5.1)
[2017-11-02 08:37] VITALS: BP 106/66; PULSE 61; TEMP 97.4
[2017-11-02] MEDS: GABAPENTIN 300 MG CAP PO SCH (10:41)
--- NOTE | 2017-11-02 10:45 | P.DS ---
Providers Date of admission: 10/31/17 14:09 Attending physician: Sherine Cuevas DO Consults: 10/30/17 03:24 Consult Physician Routine Consulting Provider: Isabel Santana Consult Reason/Comments: arf Do you want consulting provider notified?: Yes Consult Physician Urgent Consulting Provider: Shaun Schumacher Consult Reason/Comments: cp Do you want consulting provider notified?: Yes 10/30/17 11:24 Consult Physician Routine Consulting Provider: Jp De La Cruz Consult Reason/Comments: VQ scan- PE Do you want consulting provider notified?: Yes Primary care physician: Artemio Jones - Discharge Diagnosis(es) (1) Atypical chest pain Current Visit: Yes Status: Resolved (2) Acute kidney injury superimposed on chronic kidney disease Current Visit: Yes Status: Acute (3) Acute on chronic systolic (congestive) heart failure Current Visit: Yes Status: Acute (4) 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 Current Visit: Yes Status: Acute (5) Right shoulder pain Current Visit: Yes Status: Acute (6) Suspected pulmonary embolism Current Visit: Yes Status: Acute Hospital Course: The patient is a 87-year-old male that was admitted for atypical chest pain after presented with right upper chest and shoulder pain with complaints of paresthesias of the right upper extremity. Workup with EKG and cardiac enzymes are negative for any suggestion of acute ischemia, patient was noted to have elevated d-dimer at approximately 5 and was started empirically on IV heparin to treat a possible PE, CT angiography could not be performed secondary to patient's acute kidney injury superimposed on chronic kidney disease, VQ scan showed a intermediate probability of PE. Pulmonary Dr. Morley was consulted and recommended changing to prophylactic dosage for DVT As the patient's bilateral lower extremity Dopplers were negative for any acute DVTs. The patient was initially noted to have elevated BNP of 8300 with chest x -ray consistent with cardiomegaly and mild heart failure with slightly increased pulmonary vascular congestion, he was given a dosage of Lasix 40 mm IV with some noted improvement in her serum creatinine down to 1.66 from 1.99. 2-D echo cardiogram performed showed a severely dilated left atrium and ejection fraction of 50-55%. Neurology saw the patient in consultation and recommended holding the patient's Lasix and in conjunction with cardiology decrease in the patient's atenolol to decrease the patient's likelihood of hypotension as the patient's blood pressure was borderline. CT of the neck was consistent with multilevel DJD most severe at C5-C6 which was clinically significant with his cervical radiculopathy symptoms of paresthesias. The patient was subsequent started on gabapentin and his dose chart titrated up to 100 mg by mouth 3 times a day. He was subsequently discharged home in stable condition told to follow-up with nephrology Dr. Coffey in 2 weeks and with his PCP in the next 3-5 days with recommendations for every other day dosing of Lasix 40 mg. This discharge process took approximately 35 minutes Patient Condition at Discharge: Fair Plan - Discharge Summary Discharge Rx Participant: No New Discharge Prescriptions: New Furosemide [Lasix] 40 mg PO DAILY PRN #30 tablet PRN Reason: swelling of lower extremity Gabapentin [Neurontin] 100 mg PO TID #90 cap No Action Ranitidine HCl [Zantac] 150 mg PO DAILY Atorvastatin [Lipitor] 40 mg PO DAILY Potassium Chloride [Klor-Con 20] 50 meq PO AC-SUPPER Aspirin 81 mg PO HS Allopurinol [Zyloprim] 100 mg PO HS traMADol HCL [Ultram] 50 mg PO Q8H PRN PRN Reason: Pain Metolazone [Zaroxolyn] 2.5 mg PO Q48H sitaGLIPtin [Januvia] 100 mg PO DAILY Calcitriol 0.25 mcg PO LOPEZ Furosemide [Lasix] 60 mg PO DAILY Folic Acid 1 mg PO DAILY Cholecalciferol (Vitamin D3) [Vitamin D3] 2,000 units PO DAILY Metoprolol Tartrate [Metoprolol Tartrate] 25 mg PO BID Discharge Medication List Allopurinol [Zyloprim] 100 mg PO HS 09/26/16 [History] Aspirin 81 mg PO HS 09/26/16 [History] Atorvastatin [Lipitor] 40 mg PO DAILY 09/26/16 [History] Metolazone [Zaroxolyn] 2.5 mg PO Q48H 09/26/16 [History] Potassium Chloride [Klor-Con 20] 50 meq PO AC-SUPPER 09/26/16 [History] Ranitidine HCl [Zantac] 150 mg PO DAILY 09/26/16 [History] traMADol HCL [Ultram] 50 mg PO Q8H PRN 09/26/16 [History] Calcitriol 0.25 mcg PO LOPEZ 02/12/17 [History] sitaGLIPtin [Januvia] 100 mg PO DAILY 02/12/17 [History] Furosemide [Lasix] 60 mg PO DAILY 03/05/17 [History] Cholecalciferol (Vitamin D3) [Vitamin D3] 2,000 units PO DAILY 10/30/17 [History ] Folic Acid 1 mg PO DAILY 10/30/17 [History] Metoprolol Tartrate [Metoprolol Tartrate] 25 mg PO BID 10/30/17 [History] Furosemide [Lasix] 40 mg PO DAILY PRN #30 tablet 11/02/17 [Rx] Gabapentin [Neurontin] 100 mg PO TID #90 cap 11/02/17 [Rx] Follow up Appointment(s)/Referral(s): Artemio Jones MD [Primary Care Provider] - 1-2 days
--- NOTE | 2017-11-02 10:45 | PN ---
PROGRESS NOTE HISTORY: Mr. Hart is an 87-year-old male with a known history of atrial fibrillation, permanent pacemaker implantation, coronary disease, who presented with shoulder discomfort. He still has some discomfort in the shoulder. His blood pressure is under good control. He denies any dizziness with walking. His breathing is stable. He denies any nausea. He continues to be on atenolol 50 mg daily, aspirin 81 mg daily, Lipitor 40 mg daily, Pepcid. PHYSICAL EXAMINATION: Blood pressure 106/60 with a heart rate in the 60s. LUNGS: Clear. HEART: S1, S2. Systolic murmur at the base. No diastolic murmur. ABDOMEN: Soft and nontender. EXTREMITIES: +1 to 2 edema bilaterally. LAB DATA: BUN and creatinine 65 and 2.2, hemoglobin of 8.9. IMPRESSION: 1. Shoulder discomfort, atypical for ischemic heart disease. 2. History of coronary artery disease. 3. Hypotension, improved. 4. Atrial fibrillation. 5. Renal failure. RECOMMENDATIONS: From the cardiac standpoint, he is stable. Continue on the present blood pressure regimen. If his pressure is on the lower side, then the dose of his beta rissa can be further decreased. MMODL / IJN: [id number] /
--- NOTE | 2017-11-02 10:49 | P.PN ---
Subjective Patient is seen in follow-up for acute kidney injury on chronic kidney disease. Patient has chronic kidney disease stage III with baseline creatinine near 1.5 secondary to nephrosclerosis. Renal function had worsened yesterday with creatinine up to 2.26. Lasix was held and dose of atenolol was decreased as his blood pressure was low in the systolic 80s to 90s. Creatinine today is stable at 2.24. Vision denies lower extremity edema. Oral intake is fair. Admits to good urine output. He continues to have pain in the shoulder. Vital signs are stable. General: The patient appeared well nourished and normally developed. HEENT: Head exam is unremarkable. Neck is without jugular venous distension. LUNGS: Lungs are clear to auscultation and percussion. Breath sounds decreased. HEART: Rate and Rhythm are regular. First and second heart sounds normal. No murmurs, rubs or gallops. ABDOMEN: Abdominal exam reveals normal bowel sounds. Non-tender and non- distended. No evidence of peritonitis. EXTREMITITES: Left lower extremity chronic lymphedema noted. No edema in the right lower extremity. Objective - Vital Signs Vital signs: Vital Signs Temp 97.4 F L 11/02/17 08:00 Pulse 61 11/02/17 08:00 Resp 16 11/02/17 08:00 BP 106/66 11/02/17 08:00 Pulse Ox 95 11/02/17 09:37 Intake & Output 11/01/17 11/02/17 11/02/17 18:59 06:59 18:59 Intake Total 1252 350 Output Total 1100 800 Balance 152 -450 Intake: Oral 1252 350 Output: Urine 1100 800 Other: Voiding Method Urinal Toilet Toilet Urinal Urinal # Voids 1 - Labs CBC & Chem 7: 11/02/17 07:59 11/02/17 07:59 Labs: Abnormal Lab Results - Last 24 Hours (Table) 11/01/17 11/01/17 11/01/17 Range/Units 12:15 16:58 20:35 RBC (4.30-5.90) m/uL Hgb (13.0-17.5) gm/dL Hct (39.0-53.0) % MCV (80.0-100.0) fL MCHC (31.0-37.0) g/dL Plt Count (150-450) k/uL Sodium (137-145) mmol/L Chloride (98-107) mmol/L BUN (9-20) mg/dL Creatinine (0.66-1.25) mg/dL Glucose (74-99) mg/dL POC Glucose (mg/dL) 144 H 158 H 132 H (75-99) mg/dL 11/02/17 11/02/17 11/02/17 Range/Units 06:58 07:59 07:59 RBC 2.79 L (4.30-5.90) m/uL Hgb 8.9 L (13.0-17.5) gm/dL Hct 29.3 L (39.0-53.0) % MCV 104.9 H (80.0-100.0) fL MCHC 30.3 L (31.0-37.0) g/dL Plt Count 135 L (150-450) k/uL Sodium 135 L (137-145) mmol/L Chloride 96 L (98-107) mmol/L BUN 65 H (9-20) mg/dL Creatinine 2.24 H (0.66-1.25) mg/dL Glucose 146 H (74-99) mg/dL POC Glucose (mg/dL) 158 H (75-99) mg/dL Assessment and Plan Plan: Assessment: #1. Nonoliguric acute kidney injury secondary to ATN secondary to hypotension. Renal function stable today with creatinine at 2.24. #2. Systolic CHF with ejection fraction of 25-30% with moderate mitral regurgitation and pulmonary hypertension. #3. Chronic kidney disease stage III secondary to nephrosclerosis and cardiorenal syndrome with baseline creatinine near 1.5. UA from earlier this year was benign. CT of the scan revealed no evidence of hydronephrosis. #4. Hypotension. Improved. Dose of atenolol was decreased and diuretics are currently held. #5. Anemia of chronic kidney disease. Iron deficiency noted. Plan: Continue to hold Lasix today. Avoid nephrotoxic agents and hypotensive episodes. Add oral iron supplementation twice daily. Repeat electrolytes in the morning. Continue to assess his volume status on a day-to-day basis. For now I have advised the patient to take Lasix every other day upon discharge and to monitor his weight closely. I also advised him to follow a low-salt and 50-60 ounces fluid restricted diet. Daughter was also present at bedside. He will need to follow-up as an outpatient in the next 1-2 weeks.
[2017-11-02] MEDS ORDERED: FERROUS SULFATE 325 MG TAB PO SCH (11:00)
[2017-11-02] MEDS ORDERED: GABAPENTIN 100 MG CAP PO SCH (11:00)
== END 2017-11-02 11:50 | disposition home or self-care (01) | DRG 682 ==
LOC: EC 01:27 → 3OBS 03:24 → OBSVTOIN 10-31 14:09
PROVIDERS: ADMIT Internal Medicine; ATTEND Internal Medicine
DX: N17.0 Acute kidney failure with tubular necrosis (principal); I26.99 Other pulmonary embolism without acute cor pulmonale; I50.23 Acute on chronic systolic (congestive) heart failure; E11.22 Type 2 diabetes mellitus with diabetic chronic kidney disease; I08.1 Rheumatic disorders of both mitral and tricuspid valves; I42.9 Cardiomyopathy, unspecified; E86.0 Dehydration; I27.20 Pulmonary hypertension, unspecified; I48.0 Paroxysmal atrial fibrillation; I49.5 Sick sinus syndrome; I13.0 Hypertensive heart and chronic kidney disease with heart failure and stage 1 through stage 4 chronic kidney disease, or unspecified chronic kidney disease; D63.1 Anemia in chronic kidney disease; E61.1 Iron deficiency; E78.5 Hyperlipidemia, unspecified; I25.10 Atherosclerotic heart disease of native coronary artery without angina pectoris; I25.2 Old myocardial infarction; I71.4 Abdominal aortic aneurysm, without rupture; I89.0 Lymphedema, not elsewhere classified; K59.00 Constipation, unspecified; M47.22 Other spondylosis with radiculopathy, cervical region; M85.80 Other specified disorders of bone density and structure, unspecified site; N18.3 Chronic kidney disease, stage 3 (moderate); R79.1 Abnormal coagulation profile; R19.7 Diarrhea, unspecified; R35.0 Frequency of micturition; R11.0 Nausea; M19.011 Primary osteoarthritis, right shoulder; R07.89 Other chest pain; Z79.82 Long term (current) use of aspirin; Z79.899 Other long term (current) drug therapy; Z85.46 Personal history of malignant neoplasm of prostate; Z96.653 Presence of artificial knee joint, bilateral; Z96.643 Presence of artificial hip joint, bilateral; Z96.611 Presence of right artificial shoulder joint; Z95.0 Presence of cardiac pacemaker; Z95.5 Presence of coronary angioplasty implant and graft; Z91.81 History of falling; Z87.891 Personal history of nicotine dependence; Z86.73 Personal history of transient ischemic attack (TIA), and cerebral infarction without residual deficits; Z86.19 Personal history of other infectious and parasitic diseases
CPT/HCPCS: 36415; 71046; 72125; 78582; 80048; 80053; 80061; 82550; 82553; 82728; 83036; 83540; 83550; 83690; 83735; 83880; 84484; 85025; 85027; 85049; 85379; 85610; 85730; 93005; 93306; 93970; 94760; 96361; 96365; 96375; 96376; 99285

== ENCOUNTER 2018-01-14 10:39 | Inpatient (IN) | payer MEDICARE, OTHER ==
[2018-01-14] MEDS ORDERED: FUROSEMIDE 10 MG/ML 4 ML VIAL IV STA (11:20)
[2018-01-14 12:10] LABS: Albumin 3.3 g/dL (3.5-5.0); Calcium 9.3 mg/dL (8.4-10.2); Potassium 3.9 mmol/L (3.5-5.1); Total Bilirubin 1.6 mg/dL (0.2-1.3); Total Protein 6.5 g/dL (6.3-8.2)
[2018-01-14 12:32] LABS: INR 1.2 (<1.2); Prothrombin Time 11.7 sec (9.0-12.0)
[2018-01-14 12:33] LABS: Basophils % (A) 1 %; Eosinophils # (A) 0.4 k/uL (0-0.7); Eosinophils % (A) 7 %; HCT 33.5 % (39.0-53.0); HGB 10.6 gm/dL (13.0-17.5); Hypochromasia Slight; Lymphocytes # (A) 0.7 k/uL (1.0-4.8); Lymphocytes % (A) 12 %; MCH 32.2 pg (25.0-35.0); MCHC 31.7 g/dL (31.0-37.0); MCV 101.6 fL (80.0-100.0); Macrocytosis Slight; Mean Platelet Volume 8.4; Monocytes # (A) 0.6 k/uL (0-1.0); Monocytes % (A) 11 %; Neutrophils # (A) 3.4 k/uL (1.3-7.7); Neutrophils % (A) 65 %; Platelet Count 116 k/uL (150-450); RDW 15.6 % (11.5-15.5); WBC 5.3 k/uL (3.8-10.6)
[2018-01-14 12:37] LABS: D-Dimer 3.4 mg/L FEU (<0.60)
[2018-01-14 12:41] LABS: Troponin I 0.028 ng/mL (0.000-0.034)
--- NOTE | 2018-01-14 13:04 | US ---
EXAMINATION TYPE: US venous doppler duplex LE DATE OF EXAM: 01/14/2018 12:53 PM COMPARISON: NONE CLINICAL HISTORY: Pain. Pain and edema bilateral legs for 10 years SIDE PERFORMED: Bilateral TECHNIQUE: The lower extremity deep venous system is examined utilizing real time linear array sonog asia with graded compression, doppler sonography and color-flow sonography. VESSELS IMAGED: External Iliac Vein (EIV) Common Femoral Vein Deep Femoral Vein Greater Saphenous Vein * Femoral Vein Popliteal Vein Small Saphenous Vein * Proximal Calf Veins (* superficial vessels) *Technical limitations - patient has extensive edema and arterial calcifications. Right Leg: No evidence of DVT as visualized Left Leg: No evidence of DVT as visualized Grayscale, color doppler, spectral doppler imaging performed of the deep veins of the lower extremiti es. There is normal flow, compressibility, vascular waveforms. IMPRESSION: 1. No sonographic evidence of acute deep venous arthrosis within either lower extremity. 2. Diffuse bilateral lower extremity subcutaneous disease edema.
--- NOTE | 2018-01-14 13:14 | XR ---
EXAMINATION TYPE: XR chest 2V DATE OF EXAM: 01/14/2018 COMPARISON: Chest x-ray November 01, 2017 HISTORY: Swelling in both legs. Difficulty breathing. TECHNIQUE: Frontal and lateral views of the chest are obtained. FINDINGS: The osseous structures remain demineralized. There is partial visualization of surgical vance nge right shoulder level. There is persistent cardiomegaly with multi lead pacemaker/AICD and atheros clerotic thoracic aorta. There is chronic thickening right paratracheal stripe. There is chronic pare nchymal change without suspicious new focal airspace opacity or pneumothorax seen bilaterally. There are small to tiny bilateral pleural effusions or pleural thickening on lateral view redemonstrated. B lunting of right lateral costophrenic angle is again seen. Calcified hilar lymph nodes are again seen . IMPRESSION: Cardiomegaly and chronic parenchymal changes with persistent small to tiny bilateral ple ural effusions, no new suspicious focal infiltrate. No significant change from prior.
--- NOTE | 2018-01-14 14:51 | ED ---
SOB HPI - General Chief Complaint: Shortness of Breath Stated Complaint: legs swollen Time Seen by Provider: 01/14/18 10:53 Source: patient, family Mode of arrival: wheelchair Limitations: no limitations - History of Present Illness Initial Comments: 87 years old male comes in with a shortness of breath, he said both his legs or the edema is getting worse he spoke with his manager pipeline manager pipeline stated that he needs a Lasix infusion and he is with the Lasix infusion also complaining about the chest pain chest pain gets worse with deep breaths area denies any fever no chills he is not coughing up any phlegm no abdominal pain no frequency urgency dysuria no symptoms of TIA or CVA - Related Data Home Medications Medication Instructions Recorded Confirmed Allopurinol [Zyloprim] 100 mg PO HS 09/26/16 01/14/18 Aspirin 81 mg PO HS 09/26/16 01/14/18 Atorvastatin [Lipitor] 40 mg PO DAILY 09/26/16 01/14/18 Ranitidine HCl [Zantac] 150 mg PO DAILY 09/26/16 01/14/18 traMADol HCL [Ultram] 50 mg PO Q8H PRN 09/26/16 01/14/18 Calcitriol 0.25 mcg PO LOPEZ 02/12/17 01/14/18 sitaGLIPtin [Januvia] 100 mg PO DAILY 02/12/17 01/14/18 Cholecalciferol (Vitamin D3) 2,000 units PO DAILY 10/30/17 01/14/18 [Vitamin D3] Folic Acid 1 mg PO DAILY 10/30/17 01/14/18 Acetaminophen Tab [Tylenol Tab] 325 mg PO Q4H PRN 01/14/18 01/14/18 Atenolol [Tenormin] 50 mg PO DAILY 01/14/18 01/14/18 Benzonatate [Tessalon Perles] 100 mg PO BID 01/14/18 01/14/18 Furosemide [Lasix] 40 mg PO BID 01/14/18 01/14/18 Levofloxacin [Levaquin] 500 mg PO DAILY 01/14/18 01/14/18 Metolazone [Zaroxolyn] 5 mg PO DAILY 01/14/18 01/14/18 Potassium Bicarbonate/Cit AC 50 meq PO DAILY 03/21/18 03/21/18 [Potassium 25 Meq Tablet Eff] Allergies Allergy/AdvReac Type Severity Reaction Status Date / Time morphine Allergy Severe Unknown Verified 01/14/18 11:02 Review of Systems ROS Statement: Those systems with pertinent positive or pertinent negative responses have been documented in the HPI. ROS Other: All systems not noted in ROS Statement are negative. 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 diff, degenerative joint disease, moderate to severe mitral and tricuspid regurgitation, infrarenal abdominal aortic aneurysm status post stenting with endo-leak Last Myocardial Infarction Date:: unknown History of Any Multi-Drug Resistant Organisms: C-DIFF Date of last positivie culture/infection: 2011 MDRO Source:: stool Past Surgical History: Cholecystectomy, Heart Catheterization With Stent, Hernia Repair, Joint Replacement, Pacemaker Additional Past Surgical History / Comment(s): Abdominal aortic stenting [address] Valencia, right shoulder replacement, permanent pacemaker, bilateral knee replacements, bilateral hip replacement, left carotid stent, prostatectomy, drainage of psoas muscle abscess, right wrist surgery with removal of foreign body, right eye implantation, cholecystectomy, bilateral hernia repair Past Anesthesia/Blood Transfusion Reactions: No Reported Reaction Date of Last Stent Placement:: unknown Type of Cardiac Device: Permanent Pacemaker Device Placement Date:: unknown Past Psychological History: No Psychological Hx Reported Smoking Status: Former smoker Past Alcohol Use History: None Reported Past Drug Use History: None Reported - Past Family History Father Family Medical History: Unable to Obtain Additional Family Medical History / Comment(s): no heart disease General Exam - General Exam Comments Initial Comments: General: The patient is awake and alert, in no real distress him a he looks pale and tired. Skin: Skin is warm and dry and no rashes or lesions are noted. Eye: Pupils are equal, round and reactive to light, extra-ocular movements are intact; there is normal conjunctiva bilaterally. Ears, nose, mouth and throat: It is membranes are quite dry reflecting some dehydration. Neck: The neck is supple, there is no tenderness o Cardiovascular: There is a regular rate and rhythm. No murmur, rub or gallop is appreciated. Respiratory: To auscultation bilateral, decreased breath sounds bilaterally noticed some crackles at the bases as well Gastrointestinal: Soft, non-distended, non-tender abdomen without masses or organomegaly noted. There is no rebound or guarding present. Bowel sounds are unremarkable. Back: There is no tenderness to palpation in the midline. There is no obvious deformity. Musculoskeletal: Both lower extremities hours has massive swelling 4+ edema, noticed mild cellulitis as well Neurological: CN II-XII intact, Cranial nerves III through XII are intact. There are no obvious motor or sensory deficits. Coordination appears grossly intact. Speech is normal. Psychiatric: Cooperative, appropriate mood & affect, normal judgment. Limitations: no limitations Course Vital Signs 01/14/18 01/14/18 01/14/18 10:45 12:28 14:00 Temperature 98.0 F Pulse Rate 54 L 88 56 L Respiratory 20 20 18 Rate Blood Pressure 123/62 116/58 129/62 O2 Sat by Pulse 96 98 97 Oximetry I am EKG is paced rhythm ventricular rate is 73 QRS duration is 172 QT/QTc is 514/566 10 is reassessed, noticed CBC is normal d-dimer is quite elevated creatinine is 2.75 patient has degenerative disease but this seems bit higher I chest x-ray shows some pleural effusion, consistent with a mild congestive heart failure or lower extremities exam is consistent with mild cellulitis though he is afebrile and her white count is unremarkable. Patient be admitted to hospitalist group, sound will consult cardiology and nephrology Medical Decision Making - Lab Data Result diagrams: 01/14/18 11:50 01/14/18 11:50 Lab Results 01/14/18 01/14/18 01/14/18 Range/Units 11:50 11:50 11:50 WBC 5.3 (3.8-10.6) k/uL RBC 3.30 L (4.30-5.90) m/uL Hgb 10.6 L (13.0-17.5) gm/dL Hct 33.5 L (39.0-53.0) % MCV 101.6 H (80.0-100.0) fL MCH 32.2 (25.0-35.0) pg MCHC 31.7 (31.0-37.0) g/dL RDW 15.6 H (11.5-15.5) % Plt Count 116 L (150-450) k/uL Neutrophils % 65 % Lymphocytes % 12 % Monocytes % 11 % Eosinophils % 7 % Basophils % 1 % Neutrophils # 3.4 (1.3-7.7) k/uL Lymphocytes # 0.7 L (1.0-4.8) k/uL Monocytes # 0.6 (0-1.0) k/uL Eosinophils # 0.4 (0-0.7) k/uL Basophils # 0.0 (0-0.2) k/uL Hypochromasia Slight Macrocytosis Slight PT (9.0-12.0) sec INR (<1.2) APTT (22.0-30.0) sec D-Dimer (<0.60) mg/L FEU Sodium 140 (137-145) mmol/L Potassium 3.9 (3.5-5.1) mmol/L Chloride 96 L (98-107) mmol/L Carbon Dioxide 33 H (22-30) mmol/L Anion Gap 11 mmol/L BUN 50 H (9-20) mg/dL Creatinine 2.75 H (0.66-1.25) mg/dL Est GFR (CKD-EPI)AfAm 23 (>60 ml/min/1.73 sqM) Est GFR (CKD-EPI)NonAf 20 (>60 ml/min/1.73 sqM) Glucose 129 H (74-99) mg/dL Calcium 9.3 (8.4-10.2) mg/dL Total Bilirubin 1.6 H (0.2-1.3) mg/dL AST 30 (17-59) U/L ALT 24 (21-72) U/L Alkaline Phosphatase 197 H (38-126) U/L Total Creatine Kinase 46 L (55-170) U/L CK-MB (CK-2) 1.0 (0.0-2.4) ng/mL CK-MB (CK-2) Rel Index 2.2 Troponin I 0.028 (0.000-0.034) ng/mL Total Protein 6.5 (6.3-8.2) g/dL Albumin 3.3 L (3.5-5.0) g/dL 01/14/18 Range/Units 11:50 WBC (3.8-10.6) k/uL RBC (4.30-5.90) m/uL Hgb (13.0-17.5) gm/dL Hct (39.0-53.0) % MCV (80.0-100.0) fL MCH (25.0-35.0) pg MCHC (31.0-37.0) g/dL RDW (11.5-15.5) % Plt Count (150-450) k/uL Neutrophils % % Lymphocytes % % Monocytes % % Eosinophils % % Basophils % % Neutrophils # (1.3-7.7) k/uL Lymphocytes # (1.0-4.8) k/uL Monocytes # (0-1.0) k/uL Eosinophils # (0-0.7) k/uL Basophils # (0-0.2) k/uL Hypochromasia Macrocytosis PT 11.7 (9.0-12.0) sec INR 1.2 H (<1.2) APTT 27.0 (22.0-30.0) sec D-Dimer 3.40 H (<0.60) mg/L FEU Sodium (137-145) mmol/L Potassium (3.5-5.1) mmol/L Chloride (98-107) mmol/L Carbon Dioxide (22-30) mmol/L Anion Gap mmol/L BUN (9-20) mg/dL Creatinine (0.66-1.25) mg/dL Est GFR (CKD-EPI)AfAm (>60 ml/min/1.73 sqM) Est GFR (CKD-EPI)NonAf (>60 ml/min/1.73 sqM) Glucose (74-99) mg/dL Calcium (8.4-10.2) mg/dL Total Bilirubin (0.2-1.3) mg/dL AST (17-59) U/L ALT (21-72) U/L Alkaline Phosphatase (38-126) U/L Total Creatine Kinase (55-170) U/L CK-MB (CK-2) (0.0-2.4) ng/mL CK-MB (CK-2) Rel Index Troponin I (0.000-0.034) ng/mL Total Protein (6.3-8.2) g/dL Albumin (3.5-5.0) g/dL Disposition Clinical Impression: Dyspnea, Elevated d-dimer, Pedal edema, Congestive heart failure, Cellulitis Disposition: ADMITTED IP TO THIS HOSP Condition: Fair Referrals: Artemio Jones MD [Primary Care Provider] - 1-2 days
[2018-01-14] MEDS ORDERED: NALOXONE 0.4 MG/ML 1 ML VIAL IV PRN (15:00)
[2018-01-14] MEDS ORDERED: ACETAMINOPHEN TAB 325 MG TAB PO PRN (15:00)
[2018-01-14] MEDS ORDERED: ONDANSETRON 4 MG/2 ML VIAL IVP PRN (15:00)
--- NOTE | 2018-01-14 16:23 | P.HPIM ---
History of Present Illness H&P Date: 01/14/18 This is an 87-year-old male with multiple medical problems including stage 3-4 chronic kidney disease, diabetes diabetes hypertension peripheral vascular disease ALLERGIC aneurysm, who was admitted to the hospital for shortness of breath and extensive swelling in his lower extremities and abdomen that has been progressively getting worse over the last few weeks, and the patient also has been complaining of redness in the lower extremities, Patient is not complaining of chest pain or vomiting but appears to be weak Review of systems and systems has been reviewed all negative and positive findings as per HPI Past Medical History: Coronary Artery Disease (CAD), Cancer, Heart Failure, Diabetes Mellitus, Hyperlipidemia, Myocardial Infarction ([place]), Osteoarthritis ( OA), Pneumonia Additional Past Medical History / Comment(s): 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 diff, degenerative joint disease, moderate to severe mitral and tricuspid regurgitation, infrarenal abdominal aortic aneurysm status post stenting with endo-leak Last Myocardial Infarction Date:: unknown History of Any Multi-Drug Resistant Organisms: C-DIFF Date of last positivie culture/infection: 2011 MDRO Source:: stool Past Surgical History: Cholecystectomy, Heart Catheterization With Stent, Hernia Repair, Joint Replacement, Pacemaker Additional Past Surgical History / Comment(s): Abdominal aortic stenting [address] Valencia, right shoulder replacement, permanent pacemaker, bilateral knee replacements, bilateral hip replacement, left carotid stent, prostatectomy, drainage of psoas muscle abscess, right wrist surgery with removal of foreign body, right eye implantation, cholecystectomy, bilateral hernia repair Past Anesthesia/Blood Transfusion Reactions: No Reported Reaction Date of Last Stent Placement:: unknown Type of Cardiac Device: Permanent Pacemaker Device Placement Date:: unknown Past Psychological History: No Psychological Hx Reported Smoking Status: Former smoker Past Alcohol Use History: None Reported Past Drug Use History: None Reported Vital Signs - 24 hr 01/14/18 01/14/18 01/14/18 10:45 12:28 14:00 Temperature 98.0 F Pulse Rate 54 L 88 56 L Respiratory 20 20 18 Rate Blood Pressure 123/62 116/58 129/62 O2 Sat by Pulse 96 98 97 Oximetry 01/14/18 01/14/18 01/14/18 15:00 15:41 15:44 Temperature 98.2 F 98.2 F Pulse Rate 75 67 67 Respiratory 18 19 18 Rate Blood Pressure 132/78 131/60 131/60 O2 Sat by Pulse 99 96 96 Oximetry Constitutional: No acute distress, conversant, pleasant Eyes: Anicteric sclerae, moist conjunctiva, no lid-lag PERRLA ENMT: NC/AT Oropharynx clear, no erythema, exudates Neck: Supple, FROM, no masses, or JVD No carotid bruits No thyromegaly Lungs: Crackly bilaterally Normal respiratory effort, no accessory muscle use Cardiovascular: Heart regular in rate and rhythm, No murmurs, gallops, Abdominal: Soft Nontender, no guarding, rebound or rigidity Abdomen moving with respiration Normoactive bowel sounds No hepatomegaly, No splenomegaly No palpable mass No abdominal wall hernia noted Skin: Normal temperature, tone, texture, turgor No induration No subcutaneous nodules No rash, lesions No ulcers Extremities: Extensive lower extremity edema 4+ bilaterally with redness in the lower extremities the edema extending to the abdomen thighs lower back Psychiatric:Alert and does not appear to be confused at this time Neuro: Generalized weakness Assessment and plan extensive anasarca that failed outpatient therapy Patient does of Lasix has been increased to twice a day for 40 mg without any significant effect We will start the patient on IV Lasix 60 mg twice a day and will consult nephrology Likely the cause all of this anasarca A is combined OF chronic kidney disease volume overload and and acute on chronic diastolic congestive heart failure Cellulitis of the lower extremity patient has been on Levaquin as an outpatient without any significant improvement at this time We will start the patient on clindamycin and will monitor Peripheral vascular disease Cardiology also has been consulted Generalized weakness Expected length of stay more than 2 days Admit the patient to regular medical floor Past Medical History Past Medical History: Coronary Artery Disease (CAD), Cancer, Heart Failure, Diabetes Mellitus, Hyperlipidemia, Myocardial Infarction ([place]), Osteoarthritis ( OA), Pneumonia Additional Past Medical History / Comment(s): 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 diff, degenerative joint disease, moderate to severe mitral and tricuspid regurgitation, infrarenal abdominal aortic aneurysm status post stenting with endo-leak Last Myocardial Infarction Date:: unknown History of Any Multi-Drug Resistant Organisms: C-DIFF Date of last positivie culture/infection: 2011 MDRO Source:: stool Past Surgical History: Cholecystectomy, Heart Catheterization With Stent, Hernia Repair, Joint Replacement, Pacemaker Additional Past Surgical History / Comment(s): Abdominal aortic stenting [address] Valencia, right shoulder replacement, permanent pacemaker, bilateral knee replacements, bilateral hip replacement, left carotid stent, prostatectomy, drainage of psoas muscle abscess, right wrist surgery with removal of foreign body, right eye implantation, cholecystectomy, bilateral hernia repair Past Anesthesia/Blood Transfusion Reactions: No Reported Reaction Date of Last Stent Placement:: unknown Type of Cardiac Device: Permanent Pacemaker Device Placement Date:: unknown Past Psychological History: No Psychological Hx Reported Smoking Status: Former smoker Past Alcohol Use History: None Reported Past Drug Use History: None Reported - Past Family History Father Family Medical History: Unable to Obtain Additional Family Medical History / Comment(s): no heart disease Medications and Allergies Home Medications Medication Instructions Recorded Confirmed Type Allopurinol [Zyloprim] 100 mg PO HS 09/26/16 01/14/18 History Aspirin 81 mg PO HS 09/26/16 01/14/18 History Atorvastatin [Lipitor] 40 mg PO DAILY 09/26/16 01/14/18 History Ranitidine HCl [Zantac] 150 mg PO DAILY 09/26/16 01/14/18 History traMADol HCL [Ultram] 50 mg PO Q8H PRN 09/26/16 01/14/18 History Calcitriol 0.25 mcg PO LOPEZ 02/12/17 01/14/18 History sitaGLIPtin [Januvia] 100 mg PO DAILY 02/12/17 01/14/18 History Cholecalciferol (Vitamin D3) 2,000 units PO DAILY 10/30/17 01/14/18 History [Vitamin D3] Folic Acid 1 mg PO DAILY 10/30/17 01/14/18 History Acetaminophen Tab [Tylenol Tab] 325 mg PO Q4H PRN 01/14/18 01/14/18 History Atenolol [Tenormin] 50 mg PO DAILY 01/14/18 01/14/18 History Benzonatate [Tessalon Perles] 100 mg PO BID 01/14/18 01/14/18 History Furosemide [Lasix] 40 mg PO BID 01/14/18 01/14/18 History Levofloxacin [Levaquin] 500 mg PO DAILY 01/14/18 01/14/18 History Metolazone [Zaroxolyn] 5 mg PO DAILY 01/14/18 01/14/18 History Potassium Bicarbonate/Cit AC 50 meq PO DAILY 01/14/18 01/14/18 History [Potassium 25 Meq Tablet Eff] Allergies Allergy/AdvReac Type Severity Reaction Status Date / Time morphine Allergy Severe Unknown Verified 01/14/18 11:02 Physical Exam Vitals: Vital Signs Temp Pulse Resp BP Pulse Ox 01/14/18 15:44 98.2 F 67 18 131/60 96 01/14/18 15:41 98.2 F 67 19 131/60 96 01/14/18 15:00 75 18 132/78 99 01/14/18 14:00 56 L 18 129/62 97 01/14/18 12:28 88 20 116/58 98 01/14/18 10:45 98.0 F 54 L 20 123/62 96 Intake and Output 01/14/18 01/14/18 01/14/18 06:59 14:59 22:59 Output Total 500 225 Balance -500 -225 Output: Urine 500 225 Other: Weight 99.337 kg Results CBC & Chem 7: 01/14/18 11:50 01/14/18 11:50 Labs: Abnormal Lab Results - Last 24 Hours (Table) 01/14/18 01/14/18 01/14/18 Range/Units 11:50 11:50 11:50 RBC 3.30 L (4.30-5.90) m/uL Hgb 10.6 L (13.0-17.5) gm/dL Hct 33.5 L (39.0-53.0) % MCV 101.6 H (80.0-100.0) fL RDW 15.6 H (11.5-15.5) % Plt Count 116 L (150-450) k/uL Lymphocytes # 0.7 L (1.0-4.8) k/uL INR (<1.2) D-Dimer (<0.60) mg/L FEU Chloride 96 L (98-107) mmol/L Carbon Dioxide 33 H (22-30) mmol/L BUN 50 H (9-20) mg/dL Creatinine 2.75 H (0.66-1.25) mg/dL Glucose 129 H (74-99) mg/dL Total Bilirubin 1.6 H (0.2-1.3) mg/dL Alkaline Phosphatase 197 H (38-126) U/L Total Creatine Kinase 46 L (55-170) U/L Albumin 3.3 L (3.5-5.0) g/dL 01/14/18 Range/Units 11:50 RBC (4.30-5.90) m/uL Hgb (13.0-17.5) gm/dL Hct (39.0-53.0) % MCV (80.0-100.0) fL RDW (11.5-15.5) % Plt Count (150-450) k/uL Lymphocytes # (1.0-4.8) k/uL INR 1.2 H (<1.2) D-Dimer 3.40 H (<0.60) mg/L FEU Chloride (98-107) mmol/L Carbon Dioxide (22-30) mmol/L BUN (9-20) mg/dL Creatinine (0.66-1.25) mg/dL Glucose (74-99) mg/dL Total Bilirubin (0.2-1.3) mg/dL Alkaline Phosphatase (38-126) U/L Total Creatine Kinase (55-170) U/L Albumin (3.5-5.0) g/dL
--- NOTE | 2018-01-14 17:09 | P.PN ---
Progress Note - Text Progress Note Date: 01/14/18 This is an addendum to the assessment and plan currently will not start the patient on Lasix since the patient does have significant elevation in creatinine comparable to the last admission We will ask for nephrology help in the volume management
--- NOTE | 2018-01-14 17:53 | NM ---
EXAMINATION TYPE: NM pul vent and perfuse DATE OF EXAM: 01/14/2018 COMPARISON: Chest X-ray 01/14/2018 at 1:04 PM HISTORY: Dyspnea and swelling lower extremities TECHNIQUE: Utilizing inhalation of 35.3 mCi Tc 99m DTPA aerosol and intravenous injection of 5.29 mC i of Tc 99m MAA, ventilation and perfusion images are acquired post injection in multiple projections . FINDINGS: The radiotracer distribution on the perfusion scintigrams is mildly heterogeneous on the ri ght and moderately so on the left. Similarly, the radiotracer distribution on the ventilation scintig natty is mildly heterogeneous on the right and moderately so on the left. However, there are no mismat ched defects. IMPRESSION: Low probability for the diagnosis of pulmonary embolism.
[2018-01-14 20:22] VITALS: BMI 33.3
[2018-01-14 20:45] LABS: Glucose,Whole Blood 137 mg/dL (75-99)
[2018-01-14] MEDS: BENZONATATE 100 MG CAP PO SCH (20:46)
[2018-01-14] MEDS: ALLOPURINOL 100 MG TAB PO SCH (20:46)
[2018-01-14] MEDS: ASPIRIN 81 MG PO SCH (20:47)
[2018-01-14] MEDS ORDERED: FUROSEMIDE 40 MG TAB PO SCH (21:00)
[2018-01-14] MEDS: traMADol 50 MG TAB PO PRN (23:03)
[2018-01-14] MEDS: CLINDAMYCIN 300 MG in DEXTROSE 5% IN WATER 50 ML IVPB SCH ×2 (23:03)
[2018-01-15 05:54] LABS: Glucose,Whole Blood 108 mg/dL (75-99)
[2018-01-15] MEDS: traMADol 50 MG TAB PO PRN (06:05)
[2018-01-15 06:19] LABS: HCT 31.3 % (39.0-53.0); HGB 10.3 gm/dL (13.0-17.5); MCH 33.2 pg (25.0-35.0); MCV 100.7 fL (80.0-100.0); Macrocytosis Slight; Mean Platelet Volume 8.5; RBC 3.11 m/uL (4.30-5.90); RDW 15.7 % (11.5-15.5); WBC 5.7 k/uL (3.8-10.6)
[2018-01-15 06:36] LABS: Calcium 9.3 mg/dL (8.4-10.2); Potassium 3.2 mmol/L (3.5-5.1); Total Bilirubin 1.7 mg/dL (0.2-1.3); Total Protein 6.1 g/dL (6.3-8.2)
[2018-01-15 07:30] LABS: Eosinophils # (M) 0.17 k/uL (0-0.7); Lymphocytes # (M) 1.03 k/uL (1.0-4.8); Monocytes # (M) 0.68 k/uL (0-1.0); Neutrophils # (M) 3.82 k/uL (1.3-7.7); Neutrophils % (M) 67 %; Nucleated Red Blood Cells 0 /100 WBC (0-0); Total Cells Counted 100
[2018-01-15 07:31] LABS: Anisocytosis (M) Present; Platelet Count 96 k/uL (150-450); Poikilocytosis (M) Present
[2018-01-15] MEDS ORDERED: LEVOFLOXACIN 500 MG TAB PO SCH (09:00)
[2018-01-15] MEDS: ATENOLOL 50 MG TAB PO SCH (09:08)
[2018-01-15] MEDS: ATORVASTATIN 40 MG TAB PO SCH (09:08)
[2018-01-15] MEDS: FAMOTIDINE 20 MG TAB PO SCH (09:08)
[2018-01-15] MEDS: BENZONATATE 100 MG CAP PO SCH ×2 (09:08→20:20)
[2018-01-15] MEDS: CLINDAMYCIN 300 MG in DEXTROSE 5% IN WATER 50 ML IVPB SCH ×4 (09:08→16:05)
[2018-01-15] MEDS: METOLAZONE 5 MG TAB PO SCH (09:09)
[2018-01-15] MEDS: POTASSIUM BICARBONATE/CIT AC 20 MEQ TABLET.EFF PO SCH (09:09)
[2018-01-15] MEDS: LINAGLIPTIN 5 MG TABLET PO SCH (09:09)
[2018-01-15] MEDS: FUROSEMIDE 10 MG/ML 4 ML VIAL IV SCH ×2 (09:09→22:35)
--- NOTE | 2018-01-15 09:42 | CONS ---
CONSULTATION This is an 87-year-old gentleman with history of coronary artery disease, status post prior angioplasty, abdominal aortic aneurysm, status post repair, hypertension, dyslipidemia, sick sinus syndrome, status post permanent pacemaker, who presented to hospital with worsening leg edema. He received 1 dose of IV Lasix following which he says his leg edema has improved significantly. He denies chest pain, difficulty in breathing, palpitations, or syncope. His EKG shows a paced rhythm, as do the rhythm strips. Labs show that the hemoglobin is 10.3, BUN is elevated at 50, creatinine is 2.4. His creatinine was at 1.5 and 1.4 at his last admission in November. The patient had an echo done in October of 2017 that showed an ejection fraction of 50% to 55%. Troponins have been in the whit[place] zone at 0.02, 0.02 and 0.03 on this admission. He had a V/Q scan that is negative for pulmonary embolism. PAST MEDICAL HISTORY: Past medical history is significant for congestive heart failure, sick sinus syndrome, status post permanent pacemaker, coronary artery disease, status post angioplasty, abdominal aortic aneurysm, status post repair, anemia and renal insufficiency. MEDICATIONS: Medications at home included tramadol, K-Dur, Januvia, Zaroxolyn, Lasix 40 b.i.d., Lipitor 40 q. daily, Tenormin 50 q. daily, aspirin and Zyloprim. ALLERGIES: Allergic to MORPHINE. FAMILY HISTORY: Negative for premature coronary artery disease. SOCIAL HISTORY: Negative for current smoking, ETOH abuse or drug abuse. REVIEW OF SYSTEMS: HEENT is unremarkable. CARDIAC: Negative for chest pain. RESPIRATORY: Significant shortness of breath. GENITOURINARY: Significant for renal insufficiency. PSYCHOSOCIAL: Negative. ENDOCRINE: Negative. DERM: Negative. CONSTITUTIONAL: Significant for fatigue and tiredness. MUSCULOSKELETAL: Significant for leg edema. FILER AND SANDER: Negative. HEMATOLOGICAL: Negative. ONCOLOGICAL: Negative. Rest of the system review is not relevant. PHYSICAL EXAMINATION: On exam, patient is afebrile. Heart rate is 63 beats per minute. Blood pressure is 117/62. Respiratory rate is 18. Chest exam reveals diminished air entry at the bases without any crackles or rhonchi. Heart exam reveals first and second heart sounds and a systolic murmur at the left lower sternal border. Abdomen is soft. Examination of the extremities revealed bilateral pitting edema. LABS: Labs show a hemoglobin of 10.3, platelet count is 96. BUN is elevated at 50, creatinine is 2.4. AST and ALT are within normal limits. Tropes are negative. EKG shows paced rhythm. ASSESSMENT: 1. Acute exacerbation of chronic diastolic heart failure. 2. Coronary artery disease, status post angioplasty. 3. Sick sinus syndrome, status post permanent pacemaker. 4. Chronic renal insufficiency. PLAN: I am going to treat him with IV Lasix today and switch him to p.o. Lasix tomorrow and hopefully can be discharged home over the next 24 to 48 hours. No need to repeat an echo on him on this admission. We do not have BNP, I am going to obtain a BNP on him. MMODL / IJN: [id number] /
[2018-01-15] MEDS ORDERED: POTASSIUM BICARBONATE/CIT AC 20 MEQ TABLET.EFF PO SCH (09:45)
[2018-01-15 11:37] LABS: Glucose,Whole Blood 135 mg/dL (75-99)
[2018-01-15] MEDS: CHOLECALCIFEROL 1,000 UNIT TAB PO SCH (11:51)
[2018-01-15] MEDS: FOLIC ACID 1 MG TAB PO SCH (11:51)
--- NOTE | 2018-01-15 12:31 | P.PN ---
Subjective Progress Note Date: 01/15/18 Principal diagnosis: SOB Patient is feeling better today, he thinks his breathing is going the right direction. The swelling in his legs has gone down. Objective - Vital Signs Vital signs: Vital Signs Temp 97.2 F L 01/15/18 09:00 Pulse 60 01/15/18 11:50 Resp 16 01/15/18 11:50 BP 131/65 01/15/18 11:50 Pulse Ox 98 01/15/18 11:50 Intake & Output 01/14/18 01/15/18 01/15/18 18:59 06:59 18:59 Intake Total 120 50 340 Output Total 725 1050 1000 Balance -605 -1000 -660 Weight 99.337 kg 95.5 kg Intake: Intake, IV Titration 50 100 Amount Clindamycin 300 mg In 50 100 Dextrose 5% in Water 50 ml @ 100 mls/hr IVPB Q8HR [facility] Rx#:[id number] Oral 120 240 Output: Urine 725 1050 1000 Other: Voiding Method Urinal Urinal # Voids 0 2 - Exam Constitutional: No acute distress, conversant, pleasant Eyes: Anicteric sclerae, moist conjunctiva, no lid-lag PERRLA ENMT: NC/AT Oropharynx clear, no erythema, exudates Neck: Supple, FROM, no masses, or JVD No carotid bruits No thyromegaly Lungs: Crackly bilaterally. Normal respiratory effort, no accessory muscle use Cardiovascular: Heart regular in rate and rhythm, No murmurs, gallops, Abdominal: Soft Nontender, no guarding, rebound or rigidity. Normoactive bowel sounds No hepatomegaly, No splenomegaly No palpable mass No abdominal wall hernia noted Skin: Normal temperature, tone, texture, turgor. No induration No subcutaneous nodules No rash, lesions No ulcers Extremities: edema 2+ bilaterally with redness in the lower extremities, + testicular edema. Erythema on the bilateral lower extremities from the knees down to the feet---better. Neuro: Generalized weakness - Labs CBC & Chem 7: 01/15/18 05:58 01/15/18 05:58 Labs: Abnormal Lab Results - Last 24 Hours (Table) 01/14/18 01/14/18 01/14/18 Range/Units 11:50 11:50 11:50 RBC 3.30 L (4.30-5.90) m/uL Hgb 10.6 L (13.0-17.5) gm/dL Hct 33.5 L (39.0-53.0) % MCV 101.6 H (80.0-100.0) fL RDW 15.6 H (11.5-15.5) % Plt Count 116 L (150-450) k/uL Lymphocytes # 0.7 L (1.0-4.8) k/uL INR (<1.2) D-Dimer (<0.60) mg/L FEU Potassium (3.5-5.1) mmol/L Chloride 96 L (98-107) mmol/L Carbon Dioxide 33 H (22-30) mmol/L BUN 50 H (9-20) mg/dL Creatinine 2.75 H (0.66-1.25) mg/dL Glucose 129 H (74-99) mg/dL POC Glucose (mg/dL) (75-99) mg/dL Total Bilirubin 1.6 H (0.2-1.3) mg/dL Alkaline Phosphatase 197 H (38-126) U/L Total Creatine Kinase 46 L (55-170) U/L Total Protein (6.3-8.2) g/dL Albumin 3.3 L (3.5-5.0) g/dL 01/14/18 01/14/18 01/15/18 Range/Units 11:50 20:43 05:52 RBC (4.30-5.90) m/uL Hgb (13.0-17.5) gm/dL Hct (39.0-53.0) % MCV (80.0-100.0) fL RDW (11.5-15.5) % Plt Count (150-450) k/uL Lymphocytes # (1.0-4.8) k/uL INR 1.2 H (<1.2) D-Dimer 3.40 H (<0.60) mg/L FEU Potassium (3.5-5.1) mmol/L Chloride (98-107) mmol/L Carbon Dioxide (22-30) mmol/L BUN (9-20) mg/dL Creatinine (0.66-1.25) mg/dL Glucose (74-99) mg/dL POC Glucose (mg/dL) 137 H 108 H (75-99) mg/dL Total Bilirubin (0.2-1.3) mg/dL Alkaline Phosphatase (38-126) U/L Total Creatine Kinase (55-170) U/L Total Protein (6.3-8.2) g/dL Albumin (3.5-5.0) g/dL 01/15/18 01/15/18 01/15/18 Range/Units 05:58 05:58 11:29 RBC 3.11 L (4.30-5.90) m/uL Hgb 10.3 L (13.0-17.5) gm/dL Hct 31.3 L (39.0-53.0) % MCV 100.7 H (80.0-100.0) fL RDW 15.7 H (11.5-15.5) % Plt Count 96 L (150-450) k/uL Lymphocytes # (1.0-4.8) k/uL INR (<1.2) D-Dimer (<0.60) mg/L FEU Potassium 3.2 L (3.5-5.1) mmol/L Chloride 97 L (98-107) mmol/L Carbon Dioxide 32 H (22-30) mmol/L BUN 50 H (9-20) mg/dL Creatinine 2.41 H (0.66-1.25) mg/dL Glucose 104 H (74-99) mg/dL POC Glucose (mg/dL) 135 H (75-99) mg/dL Total Bilirubin 1.7 H (0.2-1.3) mg/dL Alkaline Phosphatase 185 H (38-126) U/L Total Creatine Kinase (55-170) U/L Total Protein 6.1 L (6.3-8.2) g/dL Albumin 3.0 L (3.5-5.0) g/dL Assessment and Plan Plan: Acute exacerbation of chronic diastolic congestive heart failure Continue Lasix 40mg twice a day IV No CON inhibitor secondary to acute renal failure. Continue beta rissa Acute cellulitis of the lower extremity: Continue clindamycin. Patient was on Levaquin for 10 days before presentation without much improvement Acute on chronic renal failure stage 3: Nephrology following Hypokalemia: Replace Diabetes type 2: Blood sugar control Resume oral hypoglycemics Generalized weakness: Consult PT Anticipated discharge in 2 days
[2018-01-15 15:14] LABS: Hemoglobin A1C 6.3 % (4.0-6.0)
[2018-01-15 15:52] LABS: Glucose,Whole Blood 159 mg/dL (75-99)
[2018-01-15] MEDS: ASPIRIN 81 MG PO SCH (20:20)
[2018-01-15] MEDS: ALLOPURINOL 100 MG TAB PO SCH (20:21)
--- NOTE | 2018-01-15 20:43 | CONS ---
CONSULTATION DATE OF CONSULTATION: 01/15/2018 REASON FOR CONSULT: Renal failure. HISTORY OF PRESENT ILLNESS: The patient is an 87-year-old male with history of chronic kidney disease, NKF stage III, secondary to nephrosclerosis with previous creatinine at about 1.4 to 1.6 mg/dL as of October of 2017. Patient was admitted to the hospital with complaints of increased lower extremity edema, increased redness and shortness of breath. He is currently being diuresed and maintained on Lasix 40 mg q.12 hours IV. Patient states his swelling has improved. Overall he is feeling better. He is also maintained on IV antibiotics in the form of clindamycin. Serum creatinine on admission was 2.75 mg/dL. It is now down to 2.4 mg/dL. Patient denies use of non-steroidal anti-inflammatory agents. His blood pressure has been slightly on the lower side with systolic around 107 to 108 mmHg. No CON inhibitors on board. PAST MEDICAL HISTORY: 1. CKD, stage III. 2. Hypertension. 3. Coronary artery disease. 4. Type 2 diabetes. 5. History of [place]. 6. Hyperlipidemia. 7. Cardiomyopathy, ejection fraction 25% to 30%. 8. Paroxysmal atrial fibrillation. 9. Prostatic cancer. 10.History of psoas muscle hematoma. 11.History of C difficile colitis. 12.Moderate to severe mitral and tricuspid regurgitation. 13.Infrarenal abdominal aortic aneurysm, status post stenting. PAST SURGICAL HISTORY: 1. Cholecystectomy. 2. Cardiac catheterization. 3. Coronary stent placement. 4. Abdominal aortic stenting. 5. Prostatectomy. 6. Carotid stent. 7. Bilateral hip arthroplasty. 8. Right eye implantation. 9. Right wrist surgery. 10.Pacemaker placement. SOCIAL HISTORY: Patient is a former smoker. No history of drug abuse or alcohol abuse. HOME MEDICATIONS: Home medications prior to admission included: 1. Zyloprim. 2. Aspirin. 3. Lipitor. 4. Zantac. 5. Ultram. 6. Calcitriol. 7. Januvia. 8. Vitamin D3. 9. Tenormin. 10.Lasix. 11.Levaquin. 12.Zaroxolyn. 13.Potassium. ALLERGIES: MORPHINE. REVIEW OF SYSTEMS: As per HPI. Other systems negative. PHYSICAL EXAMINATION: Patient is comfortable, awake, alert, oriented x3, not in any acute distress. Blood pressure is 107/56, heart rate 78 per minute. He is afebrile. EXAMINATION OF THE HEART: S1, S2. EXAMINATION OF LUNGS: Bilateral breath sounds are heard. ABDOMEN: Soft, non-tender. Examination of lower extremities shows chronic edema 4+ bilaterally with significant redness of the skin noted bilaterally as well in his lower extremities. CHEF TEACHER exam is grossly intact. Patient has decreased sensation in his feet. LABS: Sodium 140, potassium 3.2, chloride 97, BUN 50, serum creatinine 2.41, hemoglobin 10.3 g/dL. ASSESSMENT: 1. Acute kidney injury secondary to hypotension and hypoperfusion, currently nonoliguric with good urine output. Continue with current dose of Lasix. There also is a component of cardiorenal syndrome, as patient has cardiomyopathy with ejection fraction of 25% to 30%. Renal function has improved from yesterday. No nephrotoxic agents on board. 2. Hypokalemia secondary to diuretics, being replaced. Check magnesium level. 3. Bilateral lower extremity cellulitis. 4. Cardiomyopathy, ejection fraction 25% to 30%. 5. Congestive heart failure, acute on top of chronic, mainly systolic. 6. Chronic kidney disease, NKF stage III, with previous baseline creatinine about 1.4 to 1.6 mg/dL. 7. Osteoarthritis, status post bilateral hip arthroplasties. 8. 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 Will continue current dose. PLAN: Continue current dose of Lasix. May continue with the clindamycin. Repeat labs in a.m.. Thank you for this consultation. We will continue to follow the patient with you during his hospitalization. MMODL / IJN: [id number] /
[2018-01-15 20:46] LABS: Glucose,Whole Blood 161 mg/dL (75-99)
[2018-01-16] MEDS: CLINDAMYCIN 300 MG in DEXTROSE 5% IN WATER 50 ML IVPB SCH ×8 (01:53→23:38)
[2018-01-16 06:11] LABS: Glucose,Whole Blood 113 mg/dL (75-99)
[2018-01-16 06:47] LABS: Calcium 9.3 mg/dL (8.4-10.2); Magnesium 1.9 mg/dL (1.6-2.3); Phosphorus 3.3 mg/dL (2.5-4.5); Potassium 3.4 mmol/L (3.5-5.1)
[2018-01-16] MEDS ORDERED: POTASSIUM BICARBONATE/CIT AC 20 MEQ TABLET.EFF PO ONE (08:42)
[2018-01-16] MEDS: POTASSIUM BICARBONATE/CIT AC 20 MEQ TABLET.EFF PO SCH (09:03)
[2018-01-16] MEDS: traMADol 50 MG TAB PO PRN (09:04)
[2018-01-16] MEDS: ATENOLOL 50 MG TAB PO SCH (09:05)
[2018-01-16] MEDS: METOLAZONE 5 MG TAB PO SCH (09:05)
[2018-01-16] MEDS: ATORVASTATIN 40 MG TAB PO SCH (09:05)
[2018-01-16] MEDS: BENZONATATE 100 MG CAP PO SCH ×2 (09:05→20:13)
[2018-01-16] MEDS: FUROSEMIDE 10 MG/ML 4 ML VIAL IV SCH ×2 (09:05→20:13)
[2018-01-16] MEDS: FAMOTIDINE 20 MG TAB PO SCH (09:05)
[2018-01-16] MEDS: LINAGLIPTIN 5 MG TABLET PO SCH (09:05)
[2018-01-16] MEDS: CHOLECALCIFEROL 1,000 UNIT TAB PO SCH (09:06)
[2018-01-16] MEDS: FOLIC ACID 1 MG TAB PO SCH (09:06)
--- NOTE | 2018-01-16 10:52 | P.PN ---
Subjective Progress Note Date: 01/16/18 Principal diagnosis: SOB Patient was having some neck pain, bilateral feet and toes pain and heel pain when he tried to stand up. His breathing continues to improve but he is not back to his baseline. Objective - Vital Signs Vital signs: Vital Signs Temp 97.7 F 01/16/18 08:20 Pulse 64 01/16/18 08:20 Resp 16 01/16/18 08:20 BP 118/54 01/16/18 08:20 Pulse Ox 97 01/16/18 08:20 Intake & Output 01/15/18 01/16/18 01/16/18 18:59 06:59 18:59 Intake Total 580 240 Output Total 1500 600 500 Balance -920 -600 -260 Weight 94.2 kg Intake: Intake, IV Titration 100 Amount Clindamycin 300 mg In 100 Dextrose 5% in Water 50 ml @ 100 mls/hr IVPB Q8HR [facility] Rx#:[id number] Oral 480 240 Output: Urine 1500 600 500 Other: Voiding Method Urinal Urinal Urinal # Voids 1 - Exam Constitutional: No acute distress, conversant, pleasant Eyes: Anicteric sclerae, moist conjunctiva, no lid-lag PERRLA ENMT: NC/AT Oropharynx clear, no erythema, exudates Neck: Supple, FROM, no masses, or JVD No carotid bruits No thyromegaly Lungs: Crackly bilaterally. Normal respiratory effort, no accessory muscle use Cardiovascular: Heart regular in rate and rhythm, No murmurs, gallops, Abdominal: Soft Nontender, no guarding, rebound or rigidity. Normoactive bowel sounds No hepatomegaly, No splenomegaly No palpable mass No abdominal wall hernia noted Skin: Normal temperature, tone, texture, turgor. No induration No subcutaneous nodules No rash, lesions No ulcers Extremities: edema 2+ bilaterally with redness in the lower extremities, + testicular edema. Erythema on the bilateral lower extremities from the knees down to the feet---better. Neuro: Generalized weakness - Labs CBC & Chem 7: 01/15/18 05:58 01/16/18 05:41 Labs: Abnormal Lab Results - Last 24 Hours (Table) 01/15/18 01/15/18 01/15/18 Range/Units 05:58 11:29 15:38 Potassium (3.5-5.1) mmol/L Chloride (98-107) mmol/L Carbon Dioxide (22-30) mmol/L BUN (9-20) mg/dL Creatinine (0.66-1.25) mg/dL Glucose (74-99) mg/dL POC Glucose (mg/dL) 135 H 159 H (75-99) mg/dL Hemoglobin A1c 6.3 H (4.0-6.0) % 01/15/18 01/16/18 01/16/18 Range/Units 20:44 05:41 06:09 Potassium 3.4 L (3.5-5.1) mmol/L Chloride 92 L (98-107) mmol/L Carbon Dioxide 36 H (22-30) mmol/L BUN 46 H (9-20) mg/dL Creatinine 2.20 H (0.66-1.25) mg/dL Glucose 115 H (74-99) mg/dL POC Glucose (mg/dL) 161 H 113 H (75-99) mg/dL Hemoglobin A1c (4.0-6.0) % Microbiology - Last 24 Hours (Table) 01/14/18 18:03 Blood Culture - Preliminary Blood No Growth after 24 hours Assessment and Plan Plan: Acute exacerbation of chronic diastolic congestive heart failure Continue Lasix 40mg twice a day IV No CON inhibitor secondary to acute renal failure. Continue beta rissa Acute cellulitis of the lower extremity: Continue clindamycin. Improving Patient was on Levaquin for 10 days before presentation without much improvement Acute on chronic renal failure stage 3: Improving Nephrology following Hypokalemia: Replace Diabetes type 2: Blood sugar controlled Resume oral hypoglycemics Generalized weakness: PT He was encouraged to walk and get out of bed as much as possible. Anticipated discharge in 2 days
--- NOTE | 2018-01-16 12:33 | P.PN ---
Subjective Progress Note Date: 01/16/18 This is a pleasant 87-year-old gentleman with history of CAD, status post prior angioplasty, abdominal aortic aneurysm, status post repair, hypertension, dyslipidemia, sick sinus syndrome, status post permanent pacemaker. Presented to the hospital with worsening leg edema. He is currently on Lasix 40 mg IV push every 12 hours and is diuresing well his weight is down 1.3 kg since yesterday. BUN and creatinine are improving at 46 and 2.2 respectively. Potassium is 3.4 which is being replaced. Upon examination he is resting comfortably in bed. He feels his breathing has improved edema is also improved. He is currently complaining of a neck ache which he is receiving pain medication and has a heating pack on his neck with improvement. Also complains of some right heel pain with no evidence of redness or skin breakdown. Objective - Vital Signs Vital signs: Vital Signs Temp 97.7 F 01/16/18 08:20 Pulse 68 01/16/18 11:40 Resp 16 01/16/18 11:40 BP 111/57 01/16/18 11:40 Pulse Ox 95 01/16/18 11:40 Intake & Output 01/15/18 01/16/18 01/16/18 18:59 06:59 18:59 Intake Total 580 240 Output Total 1500 600 500 Balance -920 -600 -260 Weight 94.2 kg Intake: Intake, IV Titration 100 Amount Clindamycin 300 mg In 100 Dextrose 5% in Water 50 ml @ 100 mls/hr IVPB Q8HR [facility] Rx#:[id number] Oral 480 240 Output: Urine 1500 600 500 Other: Voiding Method Urinal Urinal Urinal # Voids 1 - Exam PHYSICAL EXAMINATION: HEENT: Head is atraumatic, normocephalic. Pupils equal, round. Neck is supple. There is no elevated jugular venous pressure. HEART EXAMINATION: Heart sounds regular, S1 and S2 with a systolic murmur. CHEST EXAMINATION: Lungs are clear to auscultation with diminished air entry bilateral bases. No chest wall tenderness is noted on palpation or with deep breathing. ABDOMEN: Soft, nontender. Bowel sounds are heard. No organomegaly noted. EXTREMITIES: 2+ peripheral pulses with evidence of bilateral pitting peripheral edema, improved since yesterday and no calf tenderness noted. NEUROLOGIC patient is awake, alert and oriented x3. . - Labs CBC & Chem 7: 01/15/18 05:58 01/16/18 05:41 Labs: Abnormal Lab Results - Last 24 Hours (Table) 01/15/18 01/15/18 01/15/18 Range/Units 05:58 15:38 20:44 Potassium (3.5-5.1) mmol/L Chloride (98-107) mmol/L Carbon Dioxide (22-30) mmol/L BUN (9-20) mg/dL Creatinine (0.66-1.25) mg/dL Glucose (74-99) mg/dL POC Glucose (mg/dL) 159 H 161 H (75-99) mg/dL Hemoglobin A1c 6.3 H (4.0-6.0) % 01/16/18 01/16/18 Range/Units 05:41 06:09 Potassium 3.4 L (3.5-5.1) mmol/L Chloride 92 L (98-107) mmol/L Carbon Dioxide 36 H (22-30) mmol/L BUN 46 H (9-20) mg/dL Creatinine 2.20 H (0.66-1.25) mg/dL Glucose 115 H (74-99) mg/dL POC Glucose (mg/dL) 113 H (75-99) mg/dL Hemoglobin A1c (4.0-6.0) % Microbiology - Last 24 Hours (Table) 01/14/18 18:03 Blood Culture - Preliminary Blood No Growth after 24 hours Assessment and Plan Assessment: #1 acute on chronic diastolic congestive heart failure #2 coronary artery disease, status post angioplasty #3 sick sinus syndrome, status post permanent pacemaker #4 chronic renal insufficiency Plan: From cardiology's perspective, medications were reviewed and we will continue the same. Diuretics per nephrology. We will continue to follow the patient provide further recommendations accordingly. The above dictated assessment and findings were discussed with signing physician. The impression and plan of care have been directed as dictated. Brooklynn Seo, Nurse Practitioner, acting as scribe for signing physician.
[2018-01-16 12:35] LABS: Glucose,Whole Blood 183 mg/dL (75-99)
--- NOTE | 2018-01-16 12:56 | PN ---
PROGRESS NOTE Patient is seen for followup for chronic kidney disease and acute kidney injury. He is currently comfortable. Patient states he is feeling better. He was admitted with volume overload and cellulitis of his lower extremities. He is currently on Lasix 40 mg IV q.12 hours along with Zaroxolyn. Renal function continues to improve. Therefore, we can continue with the IV diuretics. PHYSICAL EXAMINATION: Blood pressure is 105/56, heart rate 60 per minute. He is afebrile. Examination of the heart, S1, S2. Examination of the lungs, bilateral breath sounds are heard. No crackles or wheezing is heard. Abdomen is soft, nontender. Examination of the lower extremities shows chronic edema about 4+ with chronic skin changes and edema on bilateral lower extremities has decreased. LABS: Show sodium 139, potassium 3.4, chloride 92, CO2 is 36, BUN 46, serum creatinine 2.2. ASSESSMENT: 1. Acute kidney injury mainly cardiorenal, currently improving with diuresis. 2. Bilateral lower extremity cellulitis, now improving. Continue with the clindamycin. 3. Chronic kidney disease, NKF stage IV secondary to nephrosclerosis. Baseline creatinine as low as 1.5 mg/dL. PLAN: Continue with the IV diuretics. Repeat labs in a.m. Replace potassium. MMODL / IJN: [id number] /
[2018-01-16 17:04] LABS: Glucose,Whole Blood 137 mg/dL (75-99)
[2018-01-16] MEDS: ASPIRIN 81 MG PO SCH (20:13)
[2018-01-16] MEDS: ALLOPURINOL 100 MG TAB PO SCH (20:13)
[2018-01-16 20:57] LABS: Glucose,Whole Blood 149 mg/dL (75-99)
[2018-01-17 01:09] VITALS: RESP 18
[2018-01-17 06:22] LABS: Glucose,Whole Blood 130 mg/dL (75-99)
[2018-01-17 07:03] LABS: Calcium 9.3 mg/dL (8.4-10.2); Potassium 3.2 mmol/L (3.5-5.1)
[2018-01-17] MEDS: ATENOLOL 50 MG TAB PO SCH (08:14)
[2018-01-17] MEDS: CLINDAMYCIN 300 MG in DEXTROSE 5% IN WATER 50 ML IVPB SCH ×4 (08:14→15:50)
[2018-01-17] MEDS: ATORVASTATIN 40 MG TAB PO SCH (08:15)
[2018-01-17] MEDS: FUROSEMIDE 10 MG/ML 4 ML VIAL IV SCH ×2 (08:15→21:16)
[2018-01-17] MEDS: BENZONATATE 100 MG CAP PO SCH ×2 (08:15→21:16)
[2018-01-17] MEDS: FAMOTIDINE 20 MG TAB PO SCH (08:15)
[2018-01-17] MEDS: LINAGLIPTIN 5 MG TABLET PO SCH (08:16)
[2018-01-17] MEDS: METOLAZONE 5 MG TAB PO SCH (08:16)
[2018-01-17] MEDS: POTASSIUM BICARBONATE/CIT AC 20 MEQ TABLET.EFF PO SCH (08:16)
[2018-01-17] MEDS: traMADol 50 MG TAB PO PRN ×2 (08:16→21:56)
--- NOTE | 2018-01-17 08:39 | P.PN ---
Subjective Patient is seen in follow-up for acute kidney injury on chronic kidney disease. Patient has chronic kidney disease stage IIIB with baseline creatinine in the range of 1.4-1.6 secondary to nephrosclerosis and cardiorenal syndrome. Patient has history of diastolic CHF with severe tricuspid regurgitation and severe pulmonary hypertension. Patient presented to the hospital with dyspnea and lower extremity swelling. He is currently on Lasix 40 mg IV twice daily and his weight is trending down. He is also maintained on antibiotics for cellulitis. Oral intake is fair. Denies chest pain. Vital signs are stable. General: The patient appeared well nourished and normally developed. HEENT: Head exam is unremarkable. Neck is without jugular venous distension. LUNGS: Lungs are clear to auscultation and percussion. Breath sounds decreased. HEART: Rate and Rhythm are regular. First and second heart sounds normal. No murmurs, rubs or gallops. ABDOMEN: Abdominal exam reveals normal bowel sounds. Non-tender and non- distended. No evidence of peritonitis. EXTREMITITES: 1+ edema. Lower extremity erythema noted. No obvious drainage noted. Objective - Vital Signs Vital signs: Vital Signs Temp 98.0 F 01/17/18 04:00 Pulse 76 01/17/18 04:00 Resp 18 01/17/18 04:00 BP 99/58 01/17/18 04:00 Pulse Ox 95 01/17/18 04:00 Intake & Output 01/16/18 01/17/18 01/17/18 18:59 06:59 18:59 Intake Total 520 500 358 Output Total 1300 975 Balance -780 -475 358 Weight 92.5 kg Intake: Intake, IV Titration 100 Amount Clindamycin 300 mg In 100 Dextrose 5% in Water 50 ml @ 100 mls/hr IVPB Q8HR [facility] Rx#:[id number] Oral 420 500 358 Output: Urine 1300 975 Other: Voiding Method Urinal Urinal # Voids 1 - Labs CBC & Chem 7: 01/15/18 05:58 01/17/18 05:59 Labs: Abnormal Lab Results - Last 24 Hours (Table) 01/16/18 01/16/18 01/16/18 Range/Units 11:49 16:59 20:52 Potassium (3.5-5.1) mmol/L Chloride (98-107) mmol/L Carbon Dioxide (22-30) mmol/L BUN (9-20) mg/dL Creatinine (0.66-1.25) mg/dL Glucose (74-99) mg/dL POC Glucose (mg/dL) 183 H 137 H 149 H (75-99) mg/dL 01/17/18 01/17/18 Range/Units 05:59 06:20 Potassium 3.2 L (3.5-5.1) mmol/L Chloride 93 L (98-107) mmol/L Carbon Dioxide 37 H (22-30) mmol/L BUN 49 H (9-20) mg/dL Creatinine 2.08 H (0.66-1.25) mg/dL Glucose 115 H (74-99) mg/dL POC Glucose (mg/dL) 130 H (75-99) mg/dL Microbiology - Last 24 Hours (Table) 01/14/18 18:03 Blood Culture - Preliminary Blood No Growth after 48 hours Assessment and Plan Plan: Assessment: #1. Nonoliguric acute kidney injury secondary to ATN secondary to cardiorenal syndrome. Improving. Creatinine down to 2.08 today. #2. Diastolic CHF with severe tricuspid regurgitation and severe pulmonary hypertension. #3. Chronic kidney disease stage IIIB/4 secondary to nephrosclerosis. Baseline creatinine in the range of 1.4-1.6. #4. Bilateral lower extremity cellulitis maintained on antibiotics. #5. Hypokalemia secondary to diuresis. Plan: Continue with Lasix 40 mg IV twice daily for now. Replace potassium. 60 mEq today. Avoid nephrotoxic agents and hypotensive episodes. Repeat electrolytes in the morning. Will also recheck a magnesium level.
--- NOTE | 2018-01-17 08:41 | P.PN ---
Subjective Progress Note Date: 01/17/18 Principal diagnosis: shortness of breath 87 y/o male that was admitted with shortness of breath and fluid overload. Patient has been recieving active diuresis. Nephrology and cardiology on board. Objective - Vital Signs Vital signs: Vital Signs Temp 98.0 F 01/17/18 04:00 Pulse 76 01/17/18 04:00 Resp 18 01/17/18 04:00 BP 99/58 01/17/18 04:00 Pulse Ox 95 01/17/18 04:00 Intake & Output 01/16/18 01/17/18 01/17/18 18:59 06:59 18:59 Intake Total 520 500 358 Output Total 1300 975 Balance -780 -475 358 Weight 92.5 kg Intake: Intake, IV Titration 100 Amount Clindamycin 300 mg In 100 Dextrose 5% in Water 50 ml @ 100 mls/hr IVPB Q8HR [facility] Rx#:[id number] Oral 420 500 358 Output: Urine 1300 975 Other: Voiding Method Urinal Urinal # Voids 1 - Exam gen:alert and oriented lungs:clear to auscultation heart:s1s2 abdomen:soft and depressible,non tender ext:swelling with redness - Labs CBC & Chem 7: 01/15/18 05:58 01/17/18 05:59 Labs: Abnormal Lab Results - Last 24 Hours (Table) 01/16/18 01/16/18 01/16/18 Range/Units 11:49 16:59 20:52 Potassium (3.5-5.1) mmol/L Chloride (98-107) mmol/L Carbon Dioxide (22-30) mmol/L BUN (9-20) mg/dL Creatinine (0.66-1.25) mg/dL Glucose (74-99) mg/dL POC Glucose (mg/dL) 183 H 137 H 149 H (75-99) mg/dL 01/17/18 01/17/18 Range/Units 05:59 06:20 Potassium 3.2 L (3.5-5.1) mmol/L Chloride 93 L (98-107) mmol/L Carbon Dioxide 37 H (22-30) mmol/L BUN 49 H (9-20) mg/dL Creatinine 2.08 H (0.66-1.25) mg/dL Glucose 115 H (74-99) mg/dL POC Glucose (mg/dL) 130 H (75-99) mg/dL Microbiology - Last 24 Hours (Table) 01/14/18 18:03 Blood Culture - Preliminary Blood No Growth after 48 hours Assessment and Plan (1) CHF (congestive heart failure) Narrative/Plan: diuresis on going breathing improving not back to baseline Current Visit: Yes Status: Acute Code(s): I50.9 - HEART FAILURE, UNSPECIFIED SNOMED Code(s): 59513153 (2) Cellulitis Narrative/Plan: iv clindamycin Current Visit: Yes Status: Acute Code(s): L03.90 - CELLULITIS, UNSPECIFIED SNOMED Code(s): 050336254 (3) Acute kidney injury superimposed on chronic kidney disease Narrative/Plan: creatinine improving Current Visit: No Status: Acute Code(s): N17.9 - ACUTE KIDNEY FAILURE, UNSPECIFIED; N18.9 - CHRONIC KIDNEY DISEASE, UNSPECIFIED SNOMED Code(s): 59862419 (4) Hyperlipidemia Current Visit: Yes Status: Acute Code(s): E78.5 - HYPERLIPIDEMIA, UNSPECIFIED SNOMED Code(s): 25044006 (5) Gout Narrative/Plan: allopurinol Current Visit: Yes Status: Acute Code(s): M10.9 - GOUT, UNSPECIFIED SNOMED Code(s): 06994098 (6) Hypokalemia Narrative/Plan: replace Current Visit: Yes Status: Acute Code(s): E87.6 - HYPOKALEMIA SNOMED Code( s): 03693067 (7) Diabetes mellitus Narrative/Plan: controlled continue tradjenta Current Visit: Yes Status: Acute Code(s): E11.9 - TYPE 2 DIABETES MELLITUS WITHOUT COMPLICATIONS SNOMED Code(s): 55629803
[2018-01-17] MEDS ORDERED: POTASSIUM CHLORIDE ER 20 MEQ TAB.ER PO STA (10:41)
[2018-01-17] MEDS: CHOLECALCIFEROL 1,000 UNIT TAB PO SCH (11:42)
[2018-01-17] MEDS: FOLIC ACID 1 MG TAB PO SCH (11:42)
[2018-01-17 11:55] LABS: Glucose,Whole Blood 150 mg/dL (75-99)
--- NOTE | 2018-01-17 12:25 | P.PN ---
Subjective Progress Note Date: 01/17/18 This is a pleasant 87-year-old gentleman with history of CAD, status post prior angioplasty, abdominal aortic aneurysm, status post repair, hypertension, dyslipidemia, sick sinus syndrome, status post permanent pacemaker. Presented to the hospital with worsening leg edema. He is currently on Lasix 40 mg IV push every 12 hours and is diuresing well his weight is down 1.3 kg since yesterday. BUN and creatinine are improving at 46 and 2.2 respectively. Potassium is 3.4 which is being replaced. Upon examination he is resting comfortably in bed. He feels his breathing has improved edema is also improved. He is currently complaining of a neck ache which he is receiving pain medication and has a heating pack on his neck with improvement. Also complains of some right heel pain with no evidence of redness or skin breakdown. 01/17/18: Patient seen and examined. He denies c/o chest discomfort, shortness of breath, palpitations, dizziness, or syncope. He continues to complain of neck stiffness and right heel pain. No evidence of trauma. Labs were reviewed and showed potassium 3.2, being replaced by nephro; BUN 49 and creatinine 2.08. He remains on Lasix 40mg IVP Q12 hours. Objective - Vital Signs Vital signs: Vital Signs Temp 97.6 F 01/17/18 08:00 Pulse 60 01/17/18 08:00 Resp 18 01/17/18 08:00 BP 115/55 01/17/18 08:00 Pulse Ox 98 01/17/18 08:00 Intake & Output 01/16/18 01/17/18 01/17/18 18:59 06:59 18:59 Intake Total 520 500 358 Output Total 1300 975 Balance -780 -475 358 Weight 92.5 kg Intake: Intake, IV Titration 100 Amount Clindamycin 300 mg In 100 Dextrose 5% in Water 50 ml @ 100 mls/hr IVPB Q8HR [facility] Rx#:[id number] Oral 420 500 358 Output: Urine 1300 975 Other: Voiding Method Urinal Urinal Urinal # Voids 1 - Exam PHYSICAL EXAMINATION: HEENT: Head is atraumatic, normocephalic. Pupils equal, round. Neck is supple. There is no elevated jugular venous pressure. HEART EXAMINATION: Heart sounds regular, S1 and S2 with a systolic murmur. CHEST EXAMINATION: Lungs are clear to auscultation with diminished air entry bilateral bases. No chest wall tenderness is noted on palpation or with deep breathing. ABDOMEN: Soft, nontender. Bowel sounds are heard. No organomegaly noted. EXTREMITIES: 2+ peripheral pulses with evidence of bilateral pitting peripheral edema, bilateral lower leg erythema consistent with cellulitis. NEUROLOGIC patient is awake, alert and oriented x3. . - Labs CBC & Chem 7: 01/15/18 05:58 01/17/18 05:59 Labs: Abnormal Lab Results - Last 24 Hours (Table) 01/16/18 01/16/18 01/16/18 Range/Units 11:49 16:59 20:52 Potassium (3.5-5.1) mmol/L Chloride (98-107) mmol/L Carbon Dioxide (22-30) mmol/L BUN (9-20) mg/dL Creatinine (0.66-1.25) mg/dL Glucose (74-99) mg/dL POC Glucose (mg/dL) 183 H 137 H 149 H (75-99) mg/dL 01/17/18 01/17/18 Range/Units 05:59 06:20 Potassium 3.2 L (3.5-5.1) mmol/L Chloride 93 L (98-107) mmol/L Carbon Dioxide 37 H (22-30) mmol/L BUN 49 H (9-20) mg/dL Creatinine 2.08 H (0.66-1.25) mg/dL Glucose 115 H (74-99) mg/dL POC Glucose (mg/dL) 130 H (75-99) mg/dL Microbiology - Last 24 Hours (Table) 01/14/18 18:03 Blood Culture - Preliminary Blood No Growth after 48 hours Assessment and Plan Assessment: #1 acute on chronic diastolic congestive heart failure #2 coronary artery disease, status post angioplasty #3 sick sinus syndrome, status post permanent pacemaker #4 chronic renal insufficiency #5 lower extremity cellulitis Plan: From cardiology's perspective, medications were reviewed and we will continue the same. Diuretics per nephrology. We will continue to follow the patient provide further recommendations accordingly. The above dictated assessment and findings were discussed with signing physician. The impression and plan of care have been directed as dictated. Brooklynn Seo, Nurse Practitioner, acting as scribe for signing physician.
--- NOTE | 2018-01-17 14:18 | CT ---
EXAMINATION TYPE: CT cervical spine wo con DATE OF EXAM: 01/17/2018 COMPARISON: Previous study dated 10/30/2017 HISTORY: neck pain CT DLP: 432.8 mGycm Automated exposure control for dose reduction was used. TECHNIQUE: CT scan of the cervical spine is obtained without contrast, axial images are obtained, sa gittal and coronal reformatted images are also reviewed. FINDINGS: Visualized intracranial structures are unremarkable. Prevertebral soft tissues are normal. There is aneurysmal dilatation of the aortic arch with maximal transverse diameter of 3.5 cm. There i s extensive arterial calcification. There is emphysematous changes throughout the lungs. There is asymmetry in the laryngeal soft tissues with prominence on the right. There is a grade 1 spondylolisthesis of C7 on T1. Alignment is otherwise reasonably Maintained. Atlantoaxial relationships are normal. There are cystic changes or erosive changes within the dens. These are stable. There is severe disc space loss at C5-6, C6-7 and C7-T1 with hypertrophic spondylosis present at thes e levels. There is significant uncovertebral joint disease at these levels as well. There is facet ar thropathy on the right at C2-3 and on the left at C3-4, bilaterally at C5-6 and C6-7. There is bilateral intervertebral foraminal narrowing at C6-3 and left-sided intervertebral foraminal narrowing at C3-4. There is right-sided intervertebral foraminal narrowing at C4-5. No definite prot rusion is seen. IMPRESSION: 1. ANEURYSMAL DILATATION OF THE AORTIC ARCH. 2. MODERATELY SEVERE DEGENERATIVE CHANGE WITHIN THE CERVICAL SPINE. 3. CYSTIC CHANGE WITHIN THE DENS, UNCHANGED FROM PREVIOUS. 4. MULTILEVEL INTERVERTEBRAL FORAMINAL NARROWING.
[2018-01-17 17:00] LABS: Glucose,Whole Blood 204 mg/dL (75-99)
[2018-01-17 21:16] LABS: Glucose,Whole Blood 230 mg/dL (75-99)
[2018-01-17] MEDS: ASPIRIN 81 MG PO SCH (21:16)
[2018-01-17] MEDS: ALLOPURINOL 100 MG TAB PO SCH (21:16)
[2018-01-18] MEDS: CLINDAMYCIN 300 MG in DEXTROSE 5% IN WATER 50 ML IVPB SCH ×4 (00:23→07:52)
[2018-01-18 06:04] LABS: Glucose,Whole Blood 130 mg/dL (75-99)
[2018-01-18 06:18] LABS: HGB 9.8 gm/dL (13.0-17.5); Hypochromasia Slight; MCH 32.3 pg (25.0-35.0); MCHC 31.5 g/dL (31.0-37.0); MCV 102.6 fL (80.0-100.0); Macrocytosis Slight; Mean Platelet Volume 8.6; RBC 3.02 m/uL (4.30-5.90); RDW 15.5 % (11.5-15.5); WBC 6.3 k/uL (3.8-10.6)
[2018-01-18 06:32] LABS: Platelet Count 97 k/uL (150-450)
[2018-01-18 06:35] LABS: Calcium 9.3 mg/dL (8.4-10.2); Magnesium 1.8 mg/dL (1.6-2.3); Potassium 3.4 mmol/L (3.5-5.1)
[2018-01-18] MEDS: traMADol 50 MG TAB PO PRN (07:56)
[2018-01-18] MEDS: ATENOLOL 50 MG TAB PO SCH (07:58)
[2018-01-18] MEDS: FUROSEMIDE 10 MG/ML 4 ML VIAL IV SCH (07:58)
[2018-01-18] MEDS: ATORVASTATIN 40 MG TAB PO SCH (07:58)
[2018-01-18] MEDS: FAMOTIDINE 20 MG TAB PO SCH (07:58)
[2018-01-18] MEDS: LINAGLIPTIN 5 MG TABLET PO SCH (07:58)
[2018-01-18] MEDS: BENZONATATE 100 MG CAP PO SCH (07:58)
[2018-01-18] MEDS: METOLAZONE 5 MG TAB PO SCH (07:59)
[2018-01-18] MEDS: POTASSIUM BICARBONATE/CIT AC 20 MEQ TABLET.EFF PO SCH (07:59)
--- NOTE | 2018-01-18 09:21 | P.PN ---
Subjective Patient is seen in follow-up for acute kidney injury on chronic kidney disease. Patient has chronic kidney disease stage IIIB with baseline creatinine in the range of 1.4-1.6 secondary to nephrosclerosis and cardiorenal syndrome. Patient has history of diastolic CHF with severe tricuspid regurgitation and severe pulmonary hypertension. Patient presented to the hospital with dyspnea and lower extremity swelling. He is currently on Lasix 40 mg IV twice daily and his weight is trending down. He is also maintained on antibiotics for cellulitis. Oral intake is fair. Denies chest pain. No active complaints at this time. Vital signs are stable. General: The patient appeared well nourished and normally developed. HEENT: Head exam is unremarkable. Neck is without jugular venous distension. LUNGS: Lungs are clear to auscultation and percussion. Breath sounds decreased. HEART: Rate and Rhythm are regular. First and second heart sounds normal. No murmurs, rubs or gallops. ABDOMEN: Abdominal exam reveals normal bowel sounds. Non-tender and non- distended. No evidence of peritonitis. EXTREMITITES: 1+ edema. Lower extremity erythema noted. No obvious drainage noted. Objective - Vital Signs Vital signs: Vital Signs Temp 97.9 F 01/18/18 04:00 Pulse 68 01/18/18 04:00 Resp 18 01/18/18 04:00 BP 104/46 01/18/18 04:00 Pulse Ox 94 L 01/18/18 04:00 Intake & Output 01/17/18 01/18/18 01/18/18 18:59 06:59 18:59 Intake Total 831 Output Total 0 400 Balance 831 -400 Weight 89.1 kg Intake: Oral 831 Output: Urine 0 400 Stool 0 0 Other: Voiding Method Urinal Urinal # Voids 0 # Bowel Movements 0 - Labs CBC & Chem 7: 01/18/18 05:33 01/18/18 05:33 Labs: Abnormal Lab Results - Last 24 Hours (Table) 01/17/18 01/17/18 01/17/18 Range/Units 11:53 16:52 21:10 RBC (4.30-5.90) m/uL Hgb (13.0-17.5) gm/dL Hct (39.0-53.0) % MCV (80.0-100.0) fL Plt Count (150-450) k/uL Potassium (3.5-5.1) mmol/L Chloride (98-107) mmol/L Carbon Dioxide (22-30) mmol/L BUN (9-20) mg/dL Creatinine (0.66-1.25) mg/dL Glucose (74-99) mg/dL POC Glucose (mg/dL) 150 H 204 H 230 H (75-99) mg/dL 01/18/18 01/18/18 01/18/18 Range/Units 05:33 05:33 05:58 RBC 3.02 L (4.30-5.90) m/uL Hgb 9.8 L (13.0-17.5) gm/dL Hct 31.0 L (39.0-53.0) % MCV 102.6 H (80.0-100.0) fL Plt Count 97 L (150-450) k/uL Potassium 3.4 L (3.5-5.1) mmol/L Chloride 91 L (98-107) mmol/L Carbon Dioxide 35 H (22-30) mmol/L BUN 50 H (9-20) mg/dL Creatinine 2.00 H (0.66-1.25) mg/dL Glucose 118 H (74-99) mg/dL POC Glucose (mg/dL) 130 H (75-99) mg/dL Microbiology - Last 24 Hours (Table) 01/14/18 18:03 Blood Culture - Preliminary Blood No Growth after 72 hours Assessment and Plan Plan: Assessment: #1. Nonoliguric acute kidney injury secondary to ATN secondary to cardiorenal syndrome. Improving. Creatinine down to 2.0 today. #2. Diastolic CHF with severe tricuspid regurgitation and severe pulmonary hypertension. #3. Chronic kidney disease stage IIIB/4 secondary to nephrosclerosis. Baseline creatinine in the range of 1.4-1.6. #4. Bilateral lower extremity cellulitis maintained on antibiotics. #5. Hypokalemia secondary to diuresis. Magnesium replete. Plan: Continue with Lasix 40 mg IV twice daily for now - can change to by mouth upon discharge. Continue metolazone daily. Replace potassium. 60 mEq today. Avoid nephrotoxic agents and hypotensive episodes. Repeat electrolytes in the morning. Anticipate discharge soon. BMP within 2-3 days of discharge and to follow-up with his PCP within 1 week and in CKD clinic in 1-2 weeks. I advised him to monitor his weight daily and to increase dose of Lasix if greater than 2-3 pound weight gain.
--- NOTE | 2018-01-18 09:37 | PN ---
PROGRESS NOTE Mr. Hart is an 87-year-old gentleman who was admitted to hospital with acute exacerbation of congestive heart failure. This morning he is feeling better. Still has some leg edema. Does not have any chest pain and shortness of breath has improved. Currently on IV Lasix, resting comfortably in bed. He is much improved compared to where we were. On exam, he is comfortable at rest. Afebrile. Vital signs are stable. There is no jugular venous distention. Chest exam reveals occasional rhonchi bilaterally. Heart exam reveals first and second heart sounds. No gallop. Abdomen is soft. Exam of extremities reveals bilateral pitting edema, but this is improved compared to where we were. LABS: Show a hemoglobin of 9.8, potassium is 3.4, BUN is 50, creatinine is 2. His rhythm strip the patient has a paced rhythm. ASSESSMENT: 1. Acute exacerbation of chronic systolic heart failure. 2. History of lymphedema. PLAN: Will continue the aspirin, Lipitor, IV Lasix for the rest of today. Hopefully, patient can be discharged home tomorrow. Please supplement the potassium per protocol. MMODL / IJN: [id number] /
--- NOTE | 2018-01-18 10:04 | P.DS ---
Providers Date of admission: 01/14/18 15:00 Expected date of discharge: 01/18/18 Attending physician: Marine Novak MD Consults: 01/14/18 15:00 Consult Physician Stat Consulting Provider: Zoila Bill Consult Reason/Comments: Congested heart failure Do you want consulting provider notified?: Yes Consult Physician Stat Consulting Provider: Isabel Santana Consult Reason/Comments: Renal failure Do you want consulting provider notified?: Yes Primary care physician: Artemio Jones - Discharge Diagnosis(es) (1) CHF (congestive heart failure) Current Visit: Yes Status: Acute (2) Cellulitis Current Visit: Yes Status: Acute (3) Acute kidney injury superimposed on chronic kidney disease Current Visit: No Status: Acute (4) Hyperlipidemia Current Visit: Yes Status: Acute (5) Gout Current Visit: Yes Status: Acute (6) Hypokalemia Current Visit: Yes Status: Acute (7) Diabetes mellitus Current Visit: Yes Status: Acute Hospital Course: This is a 87-year-old male that was admitted with symptoms swelling and fluid overload. Noted to have cellulitis in his left lower extremity.Patient also with known history of lymphedema in left lower extremity. He was treated with levaquin on an outpatient. Patient did respond to the diuresis here. Nephrology assisted with diuresis with hx of ckd. Now patient much improved. He would further benefit from using the lymphedema pumps. He will continue on clindamycin for [address]iscuss[address] Barragan Will ask for follow up with Dr Jones and Dr Santana from nephrology. gen:alert and oriented lungs:clear to auscultation heart:s1s2 abdomen:soft and depressible,non tender ext:lymphedema, redness evident in leg, no warmth daughter say that leg swelling much improved and redness is much improved also discharge time 39min Patient Condition at Discharge: Stable Plan - Discharge Summary Discharge Rx Participant: Yes New Discharge Prescriptions: New Clindamycin [Cleocin] 450 mg PO Q6H #30 capsule Continue Ranitidine HCl [Zantac] 150 mg PO DAILY Atorvastatin [Lipitor] 40 mg PO DAILY Aspirin 81 mg PO HS Allopurinol [Zyloprim] 100 mg PO HS traMADol HCL [Ultram] 50 mg PO Q8H PRN PRN Reason: Pain sitaGLIPtin [Januvia] 100 mg PO DAILY Calcitriol 0.25 mcg PO LOPEZ Folic Acid 1 mg PO DAILY Cholecalciferol (Vitamin D3) [Vitamin D3] 2,000 units PO DAILY Acetaminophen Tab [Tylenol] 325 mg PO Q4H PRN PRN Reason: Pain Atenolol [Tenormin] 50 mg PO DAILY Furosemide [Lasix] 40 mg PO BID Metolazone [Zaroxolyn] 5 mg PO DAILY Potassium Bicarbonate/Cit AC [Potassium 25 Meq Tablet Eff] 50 meq PO DAILY Benzonatate [Tessalon Perles] 100 mg PO BID Discontinued Levofloxacin [Levaquin] 500 mg PO DAILY Discharge Medication List Allopurinol [Zyloprim] 100 mg PO HS 09/26/16 [History] Aspirin 81 mg PO HS 09/26/16 [History] Atorvastatin [Lipitor] 40 mg PO DAILY 09/26/16 [History] Ranitidine HCl [Zantac] 150 mg PO DAILY 09/26/16 [History] traMADol HCL [Ultram] 50 mg PO Q8H PRN 09/26/16 [History] Calcitriol 0.25 mcg PO LOPEZ 02/12/17 [History] sitaGLIPtin [Januvia] 100 mg PO DAILY 02/12/17 [History] Cholecalciferol (Vitamin D3) [Vitamin D3] 2,000 units PO DAILY 10/30/17 [History ] Folic Acid 1 mg PO DAILY 10/30/17 [History] Acetaminophen Tab [Tylenol] 325 mg PO Q4H PRN 01/14/18 [History] Atenolol [Tenormin] 50 mg PO DAILY 01/14/18 [History] Benzonatate [Tessalon Perles] 100 mg PO BID 01/14/18 [History] Furosemide [Lasix] 40 mg PO BID 01/14/18 [History] Metolazone [Zaroxolyn] 5 mg PO DAILY 01/14/18 [History] Potassium Bicarbonate/Cit AC [Potassium 25 Meq Tablet Eff] 50 meq PO DAILY 01/14 [History] Clindamycin [Cleocin] 450 mg PO Q6H #30 capsule 01/18/18 [Rx] Follow up Appointment(s)/Referral(s): [facility], [NON-STAFF] - As Needed Artemio Jones MD [Primary Care Provider] - 1-2 days
[2018-01-18] MEDS ORDERED: POTASSIUM CHLORIDE ER 20 MEQ TAB.ER PO STA (11:17)
[2018-01-18 11:34] LABS: Glucose,Whole Blood 165 mg/dL (75-99)
[2018-01-18] MEDS ORDERED: CALCITRIOL 0.25 MCG CAP PO SCH (12:00)
[2018-01-18 12:11] VITALS: BP 96/58; PULSE 73; TEMP 97
[2018-01-18] MEDS: CHOLECALCIFEROL 1,000 UNIT TAB PO SCH (13:30)
[2018-01-18] MEDS: FOLIC ACID 1 MG TAB PO SCH (13:31)
== END 2018-01-18 13:56 | disposition home health service (06) | DRG 291 ==
LOC: EC 10:39 → 6SEL 15:00
PROVIDERS: ADMIT Internal Medicine; ATTEND Internal Medicine
DX: I13.0 Hypertensive heart and chronic kidney disease with heart failure and stage 1 through stage 4 chronic kidney disease, or unspecified chronic kidney disease (principal); I50.43 Acute on chronic combined systolic (congestive) and diastolic (congestive) heart failure; N17.0 Acute kidney failure with tubular necrosis; N18.4 Chronic kidney disease, stage 4 (severe); L03.115 Cellulitis of right lower limb; L03.116 Cellulitis of left lower limb; I95.9 Hypotension, unspecified; E11.22 Type 2 diabetes mellitus with diabetic chronic kidney disease; E11.51 Type 2 diabetes mellitus with diabetic peripheral angiopathy without gangrene; I08.1 Rheumatic disorders of both mitral and tricuspid valves; I27.20 Pulmonary hypertension, unspecified; I42.9 Cardiomyopathy, unspecified; I48.0 Paroxysmal atrial fibrillation; E78.5 Hyperlipidemia, unspecified; E87.6 Hypokalemia; I25.10 Atherosclerotic heart disease of native coronary artery without angina pectoris; I25.2 Old myocardial infarction; R79.1 Abnormal coagulation profile; I89.0 Lymphedema, not elsewhere classified; M10.9 Gout, unspecified; M19.90 Unspecified osteoarthritis, unspecified site; M89.9 Disorder of bone, unspecified; T50.2X5A Adverse effect of carbonic-anhydrase inhibitors, benzothiadiazides and other diuretics, initial encounter; M54.2 Cervicalgia; Z79.82 Long term (current) use of aspirin; Z79.899 Other long term (current) drug therapy; Z79.84 Long term (current) use of oral hypoglycemic drugs; Z88.5 Allergy status to narcotic agent; Z85.46 Personal history of malignant neoplasm of prostate; Z86.79 Personal history of other diseases of the circulatory system; Z87.891 Personal history of nicotine dependence; Z95.0 Presence of cardiac pacemaker; Z95.5 Presence of coronary angioplasty implant and graft; Z96.611 Presence of right artificial shoulder joint; Z96.643 Presence of artificial hip joint, bilateral; Z96.653 Presence of artificial knee joint, bilateral; Z90.49 Acquired absence of other specified parts of digestive tract; Z87.01 Personal history of pneumonia (recurrent)
CPT/HCPCS: 36415; 71046; 72125; 78582; 80048; 80053; 82550; 82553; 83036; 83735; 83880; 84100; 84484; 85025; 85027; 85379; 85610; 85730; 87040; 93005; 93970; 96374; 99285

== ENCOUNTER 2018-05-06 18:30 | Inpatient (IN) | payer MEDICARE, OTHER ==
--- NOTE | 2018-05-06 18:46 | ED ---
General Adult HPI - General Chief complaint: Fall Stated complaint: fall/hip injury Time Seen by Provider: 05/06/18 18:36 Source: patient, EMS, RN notes reviewed Mode of arrival: EMS Limitations: no limitations - History of Present Illness Initial comments: Patient is a pleasant 87-year-old male presenting to the emergency department after a fall. Incident occurred prior to arrival. Patient states he was trying to put on his pants and lost balance. Patient fell and landed on his left hip. Patient complains of discomfort in the left hip since that time that is mild however severe with movement. Patient is unable to get up and walk. No history of injury to that area previously. Patient does have known history of chronic leg edema more so on the left leg that is unchanged. Patient is unclear if he may have slightly bumped his head however states it was not significant. No loss of consciousness. Patient is not aware of any blood thinners that he is on. No neck pain. No back pain. - Related Data Home Medications Medication Instructions Recorded Confirmed Allopurinol [Zyloprim] 100 mg PO HS 09/26/16 05/06/18 Aspirin 81 mg PO HS 09/26/16 05/06/18 Atorvastatin [Lipitor] 40 mg PO DAILY 09/26/16 05/06/18 Ranitidine HCl [Zantac] 150 mg PO DAILY 09/26/16 05/06/18 traMADol HCL [Ultram] 50 mg PO TID PRN 09/26/16 05/06/18 sitaGLIPtin [Januvia] 100 mg PO DAILY 02/12/17 05/06/18 Cholecalciferol (Vitamin D3) 2,000 units PO DAILY 10/30/17 05/06/18 [Vitamin D3] Folic Acid 1 mg PO DAILY 10/30/17 05/06/18 Benzonatate [Tessalon Perles] 100 mg PO BID 01/14/18 05/06/18 Furosemide [Lasix] 40 mg PO DAILY 01/14/18 05/06/18 Metolazone [Zaroxolyn] 5 mg PO Q48H 01/14/18 05/06/18 Potassium Bicarbonate/Cit AC 25 meq PO BID 01/14/18 05/06/18 [Potassium 25 Meq Tablet Eff] Atenolol [Tenormin] 25 mg PO DAILY 05/06/18 05/06/18 Epoetin Eddi [Procrit] unit WEEKLY 05/06/18 Nitroglycerin Sl Tabs [Nitrostat] 0.4 mg SUBLINGUAL Q5M PRN 05/06/18 05/06/18 Sennosides-Docusate Sodium 1 tab PO BID PRN 05/06/18 05/06/18 [Senokot-S] Allergies Allergy/AdvReac Type Severity Reaction Status Date / Time morphine Allergy Severe Unknown Verified 05/06/18 18:50 Review of Systems ROS Statement: Those systems with pertinent positive or pertinent negative responses have been documented in the HPI. ROS Other: All systems not noted in ROS Statement are negative. 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 diff, degenerative joint disease, moderate to severe mitral and tricuspid regurgitation, infrarenal abdominal aortic aneurysm status post stenting with endo-leak Last Myocardial Infarction Date:: unknown History of Any Multi-Drug Resistant Organisms: C-DIFF Date of last positivie culture/infection: 2011 MDRO Source:: stool Past Surgical History: Cholecystectomy, Heart Catheterization With Stent, Hernia Repair, Joint Replacement, Pacemaker Additional Past Surgical History / Comment(s): Abdominal aortic stenting [address] Valencia, right shoulder replacement, permanent pacemaker, bilateral knee replacements, bilateral hip replacement, left carotid stent, prostatectomy, drainage of psoas muscle abscess, right wrist surgery with removal of foreign body, right eye implantation, cholecystectomy, bilateral hernia repair Past Anesthesia/Blood Transfusion Reactions: No Reported Reaction Date of Last Stent Placement:: unknown Type of Cardiac Device: Permanent Pacemaker Device Placement Date:: unknown Past Psychological History: No Psychological Hx Reported Smoking Status: Former smoker Past Alcohol Use History: None Reported Past Drug Use History: None Reported - Past Family History Father Family Medical History: Unable to Obtain Additional Family Medical History / Comment(s): no heart disease General Exam Limitations: no limitations General appearance: alert, in no apparent distress Head exam: Present: atraumatic, normocephalic Eye exam: Present: normal appearance, PERRL, EOMI. Absent: nystagmus ENT exam: Present: normal oropharynx Neck exam: Present: normal inspection. Absent: tenderness Respiratory exam: Present: normal lung sounds bilaterally Cardiovascular Exam: Present: regular rate, normal rhythm Expanded Peripheral pulses: 2+: Dorsalis Pedis (R), Dorsalis Pedis (L) GI/Abdominal exam: Present: soft. Absent: tenderness Extremities exam: Present: tenderness (Tenderness left anterior and left lateral hip. Pain with attempted range of motion.), pedal edema (+4 edema on the left, +2-3 edema on the right which patient states is chronic on both.) Neurological exam: Present: alert, CN II-XII intact. Absent: motor sensory deficit Psychiatric exam: Present: normal affect, normal mood Skin exam: Present: normal color Course Vital Signs 05/06/18 05/06/18 05/06/18 18:33 20:33 20:46 Temperature 97.8 F Pulse Rate 56 L 59 L 67 Respiratory 18 16 16 Rate Blood Pressure 149/67 130/66 129/72 O2 Sat by Pulse 95 100 98 Oximetry 05/06/18 05/06/18 20:51 20:57 Temperature Pulse Rate 61 60 Respiratory 16 16 Rate Blood Pressure 137/64 133/65 O2 Sat by Pulse 98 100 Oximetry - Reevaluation(s) Reevaluation #1: 05/06/18 18:59 Patient states he did receive pain medicine in route from EMS and does not want any further medicine at this time. Procedures - Orthopedic Joint Reduction Joint #1 Consent Obtained: verbal consent, written consent Time Out Performed: Yes Side: left Joint Reduction Location: hip Technique Used: other (Romel technique, traction/countertraction) Post-Reduction Neuro Exam: intact Post-Reduction Vascular Exam: intact Post Reduction X-Ray Obtained: Yes Post Reduction X-Ray Results: other (Does not appear to be completely reduced) Patient Tolerated Procedure: well, no complications Additional Comments: Hip did appear to be reduced and came back out. Postreduction films appear not completely reduced. - Procedural Sedation Procedural Sedation Start Time: 20:40 Procedural Sedation Stop Time: 21:02 Indications: fracture/dislocation reduction Preparation: phototypesetting equipment monitor applied, pulse oximeter, capnometry used, supplemental O2 applied IV Etomidate Dose (mgs): 15 Complications: none Patient Tolerated Procedure: well, no complications Medical Decision Making - Medical Decision Making Case was discussed with Dr. Rodney, who will admit for orthopedic call. He will need to reevaluate films for probable continued dislocation. Patient may need to go to the operating room for further muscle relaxation for further reduction. No addition patient will need hip brace. Disposition Clinical Impression: Hip dislocation, left Disposition: ADMITTED IP TO THIS HOSP Is patient prescribed a controlled substance at d/c from ED?: No Referrals: Artemio Jones MD [Primary Care Provider] - 1-2 days Decision Time: 21:03
[2018-05-06] MEDS ORDERED: HYDROmorphone 0.5 MG/0.5 ML SYRINGE IVP STA (19:26)
--- NOTE | 2018-05-06 20:12 | XR ---
EXAMINATION TYPE: XR Hip LT and AP Pelvis DATE OF EXAM: 05/06/2018 COMPARISON: NONE HISTORY: Fall today. Left hip pain. TECHNIQUE: A single AP view of the pelvis is obtained. Two views of the left hip are obtained. FINDINGS: There are bilateral hip prostheses. There is a lateral and posterior dislocation of the pr osthetic left hip joint. I see no fracture. The pelvic ring appears intact. There are numerous surgic al clips in the pelvis. There are iliac artery stents. IMPRESSION: Dislocated left hip prosthesis.
--- NOTE | 2018-05-06 20:14 | XR ---
EXAMINATION TYPE: XR chest 1V portable DATE OF EXAM: 05/06/2018 COMPARISON: 11/01/2017 HISTORY: Fell today. Pain. TECHNIQUE: Single frontal view of the chest is obtained. FINDINGS: Heart is enlarged. There is no gross heart failure. There is coarsening of interstitial pu lmonary markings. Thoracic aorta is atheromatous. There is left axillary pacemaker with the lead tips in the right ventricle. IMPRESSION: There is moderate cardiomegaly that is increased compared to last exam. No overt heart f ailure. Possible new small left pleural effusion.
[2018-05-06] MEDS ORDERED: ETOMIDATE 2 MG/ML 10 ML VIAL IVP STA (20:19)
[2018-05-06] MEDS ORDERED: MIDAZOLAM 1 MG/ML 5 ML VIAL IV STA (20:25)
[2018-05-06] MEDS ORDERED: NALOXONE 0.4 MG/ML 1 ML VIAL IV PRN (20:53)
[2018-05-06] MEDS ORDERED: SODIUM CHLORIDE 0.9% 1,000 ML IV SCH (21:00)
--- NOTE | 2018-05-06 21:17 | XR ---
EXAMINATION TYPE: XR pelvis AP view DATE OF EXAM: 05/06/2018 COMPARISON: Today HISTORY: Post reduction TECHNIQUE: Single view FINDINGS: There appears to be some reduction of the dislocated left hip prosthesis. It is not clear i f the femoral head component is well situated within the acetabular component. IMPRESSION: No fracture seen. Some reduction of the dislocated prosthesis. Limited exam. The femoral head appears to be in a more inferior position than on the CT scan of 03/06/2017 and I do not think th e dislocation is fully reduced.
[2018-05-06 23:03] VITALS: BMI 31.4
[2018-05-07] MEDS ORDERED: HYDROmorphone 0.5 MG/0.5 ML SYRINGE IVP PRN ×2 (00:23→12:44)
[2018-05-07] MEDS: traMADol 50 MG TAB PO SCH ×5 (01:00→22:03)
[2018-05-07 05:29] LABS: Glucose,Whole Blood 149 mg/dL (75-99)
[2018-05-07] MEDS ORDERED: NITROGLYCERIN SL TABS 0.4 MG TAB SUBLINGUAL PRN (07:10)
[2018-05-07] MEDS ORDERED: SENNOSIDES-DOCUSATE SODIUM 1 EACH TAB PO PRN (07:10)
--- NOTE | 2018-05-07 07:44 | P.CONS ---
History of Present Illness - Reason for Consult Consult date: 05/07/18 medical management - Chief Complaint hip dislocation - History of Present Illness 87-year-old male with extensive past medical history including history of CHF with a ventricular ejection fraction of 25% paroxysmal A. fib Patient sustained a fall at home on his left hip without loss of consciousness resulted in severe pain over his left hip he was unable to weight-bear after that He reports that he was in the bathroom when he slipped and fell on his left hip and scraped his right elbow he might have hit his head but he did not lose consciousness. This resulted in severe pain in his left hip that he couldn't weight-bear or get up at all. For which she decided to come to the hospital for further care. He reports possible bumping his head without any loss of consciousness, he denies any cuts or wounds except for abrasion over his right elbow, he reports history of bilateral hip replacement in currently he cannot weight-bear and any movement causes a lot of pain. He reports history of congestive heart failure with symptoms suggestive of NYHA III he gets easily winded with reflects activity but denies any chest pain. He can only walk around his house using a walker and cannot go for long distances he can't even walk to the car. He cannot climb stairs. He denies any chest pain or irregular heartbeat. Patient denies any chest pain headache changes in his vision or hearing, he denies any nausea vomiting or abdominal pain, he denies any GI bleeding. He is currently comfortable laying in bed without any movement is slightest movement causes a lot of pain in his left hip. He reports history of chronic swelling in his bilateral lower extremity of over 10 years which she relates to lymphedema. He takes Lasix for that. He lives alone but he has his daughter who visits him every day. Patient also reports some memory challenges and forgetfulness, he was told that he has early signs of dementia In the emergency department close reduction of left hip dislocation was attempted with no success patient admitted under orthopedic surgery for further management, medicine was consulted for medical management Review of Systems Pertinent positives as noted in HPI. 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 diff, degenerative joint disease, moderate to severe mitral and tricuspid regurgitation, infrarenal abdominal aortic aneurysm status post stenting with endo-leak Last Myocardial Infarction Date:: unknown History of Any Multi-Drug Resistant Organisms: C-DIFF Year Discovered:: 2011 MDRO Source:: stool Past Surgical History: Cholecystectomy, Heart Catheterization With Stent, Hernia Repair, Joint Replacement, Pacemaker Additional Past Surgical History / Comment(s): Abdominal aortic stenting [address] Valencia, right shoulder replacement, permanent pacemaker, bilateral knee replacements, bilateral hip replacement, left carotid stent, prostatectomy, drainage of psoas muscle abscess, right wrist surgery with removal of foreign body, right eye implantation, cholecystectomy, bilateral hernia repair Past Anesthesia/Blood Transfusion Reactions: No Reported Reaction Date of Last Stent Placement:: unknown Type of Cardiac Device: Permanent Pacemaker Device Placement Date:: unknown Past Psychological History: No Psychological Hx Reported Smoking Status: Former smoker Past Alcohol Use History: None Reported Past Drug Use History: None Reported - Past Family History Father Family Medical History: Unable to Obtain Additional Family Medical History / Comment(s): no heart disease Medications and Allergies Home Medications Medication Instructions Recorded Confirmed Type Allopurinol [Zyloprim] 100 mg PO HS 09/26/16 05/06/18 History Aspirin 81 mg PO HS 09/26/16 05/06/18 History Atorvastatin [Lipitor] 40 mg PO DAILY 09/26/16 05/06/18 History Ranitidine HCl [Zantac] 150 mg PO DAILY 09/26/16 05/06/18 History traMADol HCL [Ultram] 50 mg PO TID PRN 09/26/16 05/06/18 History sitaGLIPtin [Januvia] 100 mg PO DAILY 02/12/17 05/06/18 History Cholecalciferol (Vitamin D3) 2,000 units PO DAILY 10/30/17 05/06/18 History [Vitamin D3] Folic Acid 1 mg PO DAILY 10/30/17 05/06/18 History Benzonatate [Tessalon Perles] 100 mg PO BID 01/14/18 05/06/18 History Furosemide [Lasix] 40 mg PO DAILY 01/14/18 05/06/18 History Metolazone [Zaroxolyn] 5 mg PO Q48H 01/14/18 05/06/18 History Potassium Bicarbonate/Cit AC 25 meq PO BID 01/14/18 05/06/18 History [Potassium 25 Meq Tablet Eff] Atenolol [Tenormin] 25 mg PO DAILY 05/06/18 05/06/18 History Epoetin Eddi [Procrit] unit WEEKLY 05/06/18 History Nitroglycerin Sl Tabs [Nitrostat] 0.4 mg SUBLINGUAL Q5M PRN 05/06/18 05/06/18 History Sennosides-Docusate Sodium 1 tab PO BID PRN 05/06/18 05/06/18 History [Senokot-S] Allergies Allergy/AdvReac Type Severity Reaction Status Date / Time morphine Allergy Severe Unknown Verified 05/06/18 18:50 Physical Exam Vitals: Vital Signs Temp Pulse Pulse Resp BP BP Pulse Ox 05/07/18 02:00 98.6 F 62 18 119/67 96 05/06/18 21:11 64 16 142/74 100 05/06/18 21:07 62 16 134/76 100 05/06/18 21:02 70 16 143/73 100 05/06/18 20:57 60 16 133/65 100 05/06/18 20:51 61 16 137/64 98 05/06/18 20:46 67 16 129/72 98 05/06/18 20:33 59 L 16 130/66 100 05/06/18 18:33 97.8 F 56 L 18 149/67 95 Intake and Output 05/06/18 05/07/18 05/07/18 22:59 06:59 14:59 Intake Total 540 Output Total 970 Balance -430 Intake: Intake, IV Titration 240 Amount Sodium Chloride 0.9% 1, 240 000 ml @ 20 mls/hr IV . Q24H [facility] Rx#:[id number] Oral 300 Output: Urine 970 Other: # Voids 3 # Bowel Movements 0 Weight 93.894 kg Constitutional: No acute distress, conversant, pleasant Eyes: Anicteric sclerae, moist conjunctiva, no lid-lag Pupils equal round reactive to light ENMT: NC/AT Oropharynx clear, no erythema, exudates Neck: Supple, FROM, no masses, or JVD No carotid bruits No thyromegaly Lungs: Clear to auscultation Clear to percussion Normal respiratory effort, no accessory muscle use Cardiovascular: Heart regular in rate and rhythm, Systolic murmurs, no gallops, or rubs +3 peripheral edema bilaterally nonpitting Abdominal: Soft Nontender, no guarding, rebound or rigidity Abdomen moving with respiration Normoactive bowel sounds No hepatomegaly, No splenomegaly No palpable mass No abdominal wall hernia noted Skin: Normal temperature, tone, texture, turgor No induration No subcutaneous nodules Diffuse ecchymosis over bilateral upper extremities, abrasion over the right elbow No ulcers Extremities: No digital cyanosis No clubbing Pedal pulses unable to be detected due to foot swelling bilateral, however bilateral feet are warm to touch and capillary refill is immediate Radial pulses intact and symmetrical No calf tenderness Psychiatric: Alert and oriented to person, place Appropriate affect fair judgment Neuro Muscles Strength 4/5 in all 4 extremities however limited exam over left lower extremity due to pain Sensation to light touch grossly present throughout Cranial nerves II-XII grossly intact No focal sensory deficits Lymphatics: no palpable cervical or supraclavicular , or inguinal lymph nodes Results Labs: Abnormal Lab Results - Last 24 Hours (Table) 05/07/18 Range/Units 05:26 POC Glucose (mg/dL) 149 H (75-99) mg/dL Assessment and Plan Assessment: 87-year-old male with history of congestive heart failure EF of 25%, A. fib, and diabetes. Patient is admitted for orthopedic evaluation due to left hip dislocation failed reduction in the ED medicine was consulted for medical management. Orthopedic's planning for close reduction under anesthesia, due to complex cardiac history of the patient, and patient having shortness of breath on minimal exertion cardiology will be consulted for preoperative clearance Plan: Dislocation of the left hip failed closed reduction Management per orthopedic Cardiology for preop clearance for general anesthesia Systolic Congestive heart failure currently compensated left ventricular ejection fraction of 2530 percent, NYHA stage III Continue with home medications Continue Lasix Diabetes mellitus Hold oral hypoglycemic agents Insulin sliding scale Paroxysmal A. fib currently rate controlled Not on anticoagulation CK D stage III Currently stable Avoid nephrotoxic Chronic lymphedema Continue with diuretics History of CAD code status full code Medications reviewed and reconciled Thank you for allowing us to participate in the care of this patient. Do not hesitate to contact us with questions. Someone can be reached from the [facility] hospitalist group at all hours of the day at [phone].
[2018-05-07 07:49] LABS: HCT 32.5 % (39.0-53.0); HGB 10.2 gm/dL (13.0-17.5); Hypochromasia Slight; MCH 34.1 pg (25.0-35.0); MCHC 31.4 g/dL (31.0-37.0); MCV 108.6 fL (80.0-100.0); Macrocytosis Marked; Mean Platelet Volume 8.6; RDW 15.9 % (11.5-15.5); WBC 5.4 k/uL (3.8-10.6)
[2018-05-07 07:52] LABS: INR 1.2 (<1.2); Prothrombin Time 11.2 sec (9.0-12.0)
[2018-05-07 07:53] LABS: Albumin 3.1 g/dL (3.5-5.0); Calcium 9.2 mg/dL (8.4-10.2); Magnesium 2.1 mg/dL (1.6-2.3); Potassium 3.6 mmol/L (3.5-5.1); Total Bilirubin 1.2 mg/dL (0.2-1.3); Total Protein 6.2 g/dL (6.3-8.2)
[2018-05-07 08:04] LABS: Platelet Count 84 k/uL (150-450)
[2018-05-07] MEDS: ATORVASTATIN 40 MG TAB PO SCH (08:05)
[2018-05-07] MEDS: ATENOLOL 25 MG TAB PO SCH (08:05)
[2018-05-07] MEDS: FUROSEMIDE 40 MG TAB PO SCH (08:05)
[2018-05-07] MEDS: FAMOTIDINE 20 MG TAB PO SCH (08:05)
--- NOTE | 2018-05-07 09:06 | P.CRDCN ---
History of Present Illness History of present illness: 87-year-old male patient who slipped and fell, fractured his hip and is awaiting hip surgery this morning. He has a history of a biventricular device implanted several years back. He has severe pulmonary hypertension secondary to severe MR. On examination while he is lying flat in bed he is a significant jugular venous distention and bilateral lower extremity edema. Twelve-lead ECG shows biventricular paced rhythm Suggest Continue cardiac medications 1 dose of IV Lasix preoperatively Magnet over the device We will interrogate the device postprocedure tomorrow I would be very careful with IV fluid administration this gentleman even though his LV function by most recent evaluation was normal Will follow with you See full dictation minus practitioner Past Medical History Past Medical History: Coronary Artery Disease (CAD), Cancer, Heart Failure, Diabetes Mellitus, Hyperlipidemia, Myocardial Infarction ([place]), Osteoarthritis ( OA), Pneumonia Additional Past Medical History / Comment(s): 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 diff, degenerative joint disease, moderate to severe mitral and tricuspid regurgitation, infrarenal abdominal aortic aneurysm status post stenting with endo-leak Last Myocardial Infarction Date:: unknown History of Any Multi-Drug Resistant Organisms: C-DIFF Date of last positivie culture/infection: 2011 MDRO Source:: stool Past Surgical History: Cholecystectomy, Heart Catheterization With Stent, Hernia Repair, Joint Replacement, Pacemaker Additional Past Surgical History / Comment(s): Abdominal aortic stenting [address] Valencia, right shoulder replacement, permanent pacemaker, bilateral knee replacements, bilateral hip replacement, left carotid stent, prostatectomy, drainage of psoas muscle abscess, right wrist surgery with removal of foreign body, right eye implantation, cholecystectomy, bilateral hernia repair Past Anesthesia/Blood Transfusion Reactions: No Reported Reaction Date of Last Stent Placement:: unknown Type of Cardiac Device: Permanent Pacemaker Device Placement Date:: unknown Past Psychological History: No Psychological Hx Reported Smoking Status: Former smoker Past Alcohol Use History: None Reported Past Drug Use History: None Reported - Past Family History Father Family Medical History: Unable to Obtain Additional Family Medical History / Comment(s): no heart disease Medications and Allergies Home Medications Medication Instructions Recorded Confirmed Type Allopurinol [Zyloprim] 100 mg PO HS 09/26/16 05/06/18 History Aspirin 81 mg PO HS 09/26/16 05/06/18 History Atorvastatin [Lipitor] 40 mg PO DAILY 09/26/16 05/06/18 History Ranitidine HCl [Zantac] 150 mg PO DAILY 09/26/16 05/06/18 History traMADol HCL [Ultram] 50 mg PO TID PRN 09/26/16 05/06/18 History sitaGLIPtin [Januvia] 100 mg PO DAILY 02/12/17 05/06/18 History Cholecalciferol (Vitamin D3) 2,000 units PO DAILY 10/30/17 05/06/18 History [Vitamin D3] Folic Acid 1 mg PO DAILY 10/30/17 05/06/18 History Benzonatate [Tessalon Perles] 100 mg PO BID 01/14/18 05/06/18 History Furosemide [Lasix] 40 mg PO DAILY 01/14/18 05/06/18 History Metolazone [Zaroxolyn] 5 mg PO Q48H 01/14/18 05/06/18 History Potassium Bicarbonate/Cit AC 25 meq PO BID 01/14/18 05/06/18 History [Potassium 25 Meq Tablet Eff] Atenolol [Tenormin] 25 mg PO DAILY 05/06/18 05/06/18 History Epoetin Eddi [Procrit] unit WEEKLY 05/06/18 History Nitroglycerin Sl Tabs [Nitrostat] 0.4 mg SUBLINGUAL Q5M PRN 05/06/18 05/06/18 History Sennosides-Docusate Sodium 1 tab PO BID PRN 05/06/18 05/06/18 History [Senokot-S] Allergies Allergy/AdvReac Type Severity Reaction Status Date / Time morphine Allergy Severe Unknown Verified 05/06/18 18:50 Physical Exam Vitals: Vital Signs Temp Pulse Pulse Resp BP BP Pulse Ox 05/07/18 08:00 97.8 F 67 16 134/83 05/07/18 07:55 67 05/07/18 02:00 98.6 F 62 18 119/67 96 05/06/18 21:11 64 16 142/74 100 05/06/18 21:07 62 16 134/76 100 05/06/18 21:02 70 16 143/73 100 05/06/18 20:57 60 16 133/65 100 05/06/18 20:51 61 16 137/64 98 05/06/18 20:46 67 16 129/72 98 05/06/18 20:33 59 L 16 130/66 100 05/06/18 18:33 97.8 F 56 L 18 149/67 95 Intake and Output 05/06/18 05/07/18 05/07/18 22:59 06:59 14:59 Intake Total 540 Output Total 970 Balance -430 Intake: Intake, IV Titration 240 Amount Sodium Chloride 0.9% 1, 240 000 ml @ 20 mls/hr IV . Q24H [facility] Rx#:[id number] Oral 300 Output: Urine 970 Other: # Voids 3 # Bowel Movements 0 Weight 93.894 kg Results 05/07/18 06:41 05/07/18 06:41 Cardiac Enzymes 05/07/18 Range/Units 06:41 AST 30 (17-59) U/L Coagulation 05/07/18 Range/Units 06:41 PT 11.2 (9.0-12.0) sec CBC 05/07/18 Range/Units 06:41 WBC 5.4 (3.8-10.6) k/uL RBC 3.00 L (4.30-5.90) m/uL Hgb 10.2 L (13.0-17.5) gm/dL Hct 32.5 L (39.0-53.0) % Plt Count 84 L (150-450) k/uL Comprehensive Metabolic Panel 05/07/18 Range/Units 06:41 Sodium 140 (137-145) mmol/L Potassium 3.6 (3.5-5.1) mmol/L Chloride 99 (98-107) mmol/L Carbon Dioxide 31 H (22-30) mmol/L BUN 50 H (9-20) mg/dL Creatinine 1.50 H (0.66-1.25) mg/dL Glucose 133 H (74-99) mg/dL Calcium 9.2 (8.4-10.2) mg/dL AST 30 (17-59) U/L ALT 36 (21-72) U/L Alkaline Phosphatase 203 H (38-126) U/L Total Protein 6.2 L (6.3-8.2) g/dL Albumin 3.1 L (3.5-5.0) g/dL Current Medications Generic Name Dose Route Start Last Admin Trade Name Freq PRN Reason Stop Dose Admin Atenolol 25 mg 05/07/18 09:00 05/07/18 08:05 Tenormin PO 25 mg DAILY [facility] Administration Atorvastatin Calcium 40 mg 05/07/18 09:00 05/07/18 08:05 Lipitor PO 40 mg DAILY [facility] Administration Famotidine 20 mg 05/07/18 09:00 05/07/18 08:05 Pepcid PO 20 mg DAILY [facility] Administration Furosemide 40 mg 05/07/18 09:00 05/07/18 08:05 Lasix PO 40 mg DAILY [facility] Administration Hydromorphone HCl 0.5 mg 05/07/18 00:23 Dilaudid IVP Q4HR PRN Pain Sodium Chloride 1,000 mls @ 20 mls/hr 05/06/18 21:00 05/07/18 01:00 Saline 0.9% IV Not Given .Q24H [facility] Insulin Aspart 0 unit 05/07/18 07:30 Novolog SQ ACHS [facility] Protocol Naloxone HCl 0.2 mg 05/06/18 20:53 Narcan IV Q2M PRN Opioid Reversal Nitroglycerin 0.4 mg 05/07/18 07:10 Nitrostat SUBLINGUAL Q5M PRN Chest Pain Senna/Docusate Sodium 1 each 05/07/18 07:10 Senokot-S PO BID PRN Constipation Tramadol HCl 50 mg 05/07/18 00:30 05/07/18 05:37 Ultram PO 50 mg TID [facility] Administration Intake and Output 05/06/18 05/07/18 05/07/18 22:59 06:59 14:59 Intake Total 540 Output Total 970 Balance -430 Intake: Intake, IV Titration 240 Amount Sodium Chloride 0.9% 1, 240 000 ml @ 20 mls/hr IV . Q24H [facility] Rx#:[id number] Oral 300 Output: Urine 970 Other: # Voids 3 # Bowel Movements 0 Weight 93.894 kg 05/07/18 06:41 05/07/18 06:41
--- NOTE | 2018-05-07 09:12 | P.HPOR ---
History of Present Illness H&P Date: 05/07/18 Chief Complaint: Dislocated total left hip This is an 87-year-old male who presented to the emergency department last evening after a fall in his home. On exam and x-ray in the emergency department he is found to have a dislocated total left hip. He has history of total left hip several years ago with Dr. Covarrubias. He reports no recent problems with the hip until the fall. He has history of congestive heart failure with current pulmonary hypertension. He has history of atrial fibrillation. He is not currently on any anticoagulation therapy. He is admitted to our service for surgical intervention. 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 diff, degenerative joint disease, moderate to severe mitral and tricuspid regurgitation, infrarenal abdominal aortic aneurysm status post stenting with endo-leak Last Myocardial Infarction Date:: unknown History of Any Multi-Drug Resistant Organisms: C-DIFF Date of last positivie culture/infection: 2011 MDRO Source:: stool Past Surgical History: Cholecystectomy, Heart Catheterization With Stent, Hernia Repair, Joint Replacement, Pacemaker Additional Past Surgical History / Comment(s): Abdominal aortic stenting [address] Valencia, right shoulder replacement, permanent pacemaker, bilateral knee replacements, bilateral hip replacement, left carotid stent, prostatectomy, drainage of psoas muscle abscess, right wrist surgery with removal of foreign body, right eye implantation, cholecystectomy, bilateral hernia repair Past Anesthesia/Blood Transfusion Reactions: No Reported Reaction Date of Last Stent Placement:: unknown Type of Cardiac Device: Permanent Pacemaker Device Placement Date:: unknown Past Psychological History: No Psychological Hx Reported Smoking Status: Former smoker Past Alcohol Use History: None Reported Past Drug Use History: None Reported - Past Family History Father Family Medical History: Unable to Obtain Additional Family Medical History / Comment(s): no heart disease Medications and Allergies Home Medications Medication Instructions Recorded Confirmed Type Allopurinol [Zyloprim] 100 mg PO HS 09/26/16 05/06/18 History Aspirin 81 mg PO HS 09/26/16 05/06/18 History Atorvastatin [Lipitor] 40 mg PO DAILY 09/26/16 05/06/18 History Ranitidine HCl [Zantac] 150 mg PO DAILY 09/26/16 05/06/18 History traMADol HCL [Ultram] 50 mg PO TID PRN 09/26/16 05/06/18 History sitaGLIPtin [Januvia] 100 mg PO DAILY 02/12/17 05/06/18 History Cholecalciferol (Vitamin D3) 2,000 units PO DAILY 10/30/17 05/06/18 History [Vitamin D3] Folic Acid 1 mg PO DAILY 10/30/17 05/06/18 History Benzonatate [Tessalon Perles] 100 mg PO BID 01/14/18 05/06/18 History Furosemide [Lasix] 40 mg PO DAILY 01/14/18 05/06/18 History Metolazone [Zaroxolyn] 5 mg PO Q48H 01/14/18 05/06/18 History Potassium Bicarbonate/Cit AC 25 meq PO BID 01/14/18 05/06/18 History [Potassium 25 Meq Tablet Eff] Atenolol [Tenormin] 25 mg PO DAILY 05/06/18 05/06/18 History Epoetin Eddi [Procrit] unit WEEKLY 05/06/18 History Nitroglycerin Sl Tabs [Nitrostat] 0.4 mg SUBLINGUAL Q5M PRN 05/06/18 05/06/18 History Sennosides-Docusate Sodium 1 tab PO BID PRN 05/06/18 05/06/18 History [Senokot-S] Allergies Allergy/AdvReac Type Severity Reaction Status Date / Time morphine Allergy Severe Unknown Verified 05/06/18 18:50 Physical Examination This is a pleasant 87-year-old male in no acute distress. He is alert and oriented 3. Exam of the head neck reveal no obvious deformity. He has full cervical spine motion without difficulty or pain. There is no pain with palpation about cervical spine or paraspinal musculature. Exam of the upper extremities reveals multiple areas of ecchymosis. There are no obvious deformities. He has fairly good shoulder, elbow, wrist and finger motion without difficulty or pain. Neurovascular status to the upper extremities is intact. Exam of the lower extremities reveals significant lymphedema, particularly to the left lower extremity. There is pain with motion of the left hip. He has full foot and ankle motion bilaterally. Pedal pulses are +1/4. Results X-rays of the pelvis and left hip reveal a left total hip implant with displacement of the prosthetic head in relation to the acetabular component. No acute fractures identified. - Labs Labs: Abnormal Lab Results - Last 24 Hours (Table) 05/07/18 05/07/18 05/07/18 Range/Units 05:26 06:41 06:41 RBC 3.00 L (4.30-5.90) m/uL Hgb 10.2 L (13.0-17.5) gm/dL Hct 32.5 L (39.0-53.0) % MCV 108.6 H (80.0-100.0) fL RDW 15.9 H (11.5-15.5) % Plt Count 84 L (150-450) k/uL INR 1.2 H (<1.2) Carbon Dioxide (22-30) mmol/L BUN (9-20) mg/dL Creatinine (0.66-1.25) mg/dL Glucose (74-99) mg/dL POC Glucose (mg/dL) 149 H (75-99) mg/dL Alkaline Phosphatase (38-126) U/L Total Protein (6.3-8.2) g/dL Albumin (3.5-5.0) g/dL 05/07/18 Range/Units 06:41 RBC (4.30-5.90) m/uL Hgb (13.0-17.5) gm/dL Hct (39.0-53.0) % MCV (80.0-100.0) fL RDW (11.5-15.5) % Plt Count (150-450) k/uL INR (<1.2) Carbon Dioxide 31 H (22-30) mmol/L BUN 50 H (9-20) mg/dL Creatinine 1.50 H (0.66-1.25) mg/dL Glucose 133 H (74-99) mg/dL POC Glucose (mg/dL) (75-99) mg/dL Alkaline Phosphatase 203 H (38-126) U/L Total Protein 6.2 L (6.3-8.2) g/dL Albumin 3.1 L (3.5-5.0) g/dL H & H 05/07/18 Range/Units 06:41 Hgb 10.2 L (13.0-17.5) gm/dL Hct 32.5 L (39.0-53.0) % Coagulation 05/07/18 Range/Units 06:41 INR 1.2 H (<1.2) Result Diagrams: 05/07/18 06:41 05/07/18 06:41 Assessment and Plan (1) Lymphedema Current Visit: Yes Status: Acute Code(s): I89.0 - LYMPHEDEMA, NOT ELSEWHERE CLASSIFIED SNOMED Code(s): 981118604 (2) Hip dislocation, left Current Visit: Yes Status: Acute Code(s): S73.005A - UNSPECIFIED DISLOCATION OF LEFT HIP, INITIAL ENCOUNTER SNOMED Code(s): 774468383 (3) CHF (congestive heart failure) Current Visit: No Status: Acute Code(s): I50.9 - HEART FAILURE, UNSPECIFIED SNOMED Code(s): 35254469 Plan: The clinical and x-ray findings are discussed with the patient. It is recommended that he undergo closed, possible open reduction left hip. The patient has been seen by internal medicine and cardiology. Cardiology is recommending that he be given fluids sparingly intraoperatively secondary to his pulmonary hypertension. We're planning OR for later this morning.
[2018-05-07] MEDS: INSULIN ASPART 100 UNIT/ML 1 ML 10 ML VIAL SQ SCH ×4 (09:42→22:04)
[2018-05-07] MEDS ORDERED: FUROSEMIDE 10 MG/ML 4 ML VIAL IV STA (10:54)
[2018-05-07] MEDS ORDERED: IV FLUID CONTINUATION 1,000 ML IV ONE (11:42)
[2018-05-07 11:48] LABS: Glucose,Whole Blood 113 mg/dL (75-99)
[2018-05-07] MEDS ORDERED: fentaNYL (PF) 50 MCG/ML 2 ML AMP ONE (12:23)
[2018-05-07] MEDS ORDERED: KETAMINE 10 MG/ML 20 ML VIAL ONE (12:23)
[2018-05-07] MEDS ORDERED: MIDAZOLAM 2 MG/2 ML VIAL ONE (12:23)
[2018-05-07] MEDS ORDERED: HYDROcodone/APAP 5-325MG 1 EACH TAB PO PRN ×2 (12:44)
--- NOTE | 2018-05-07 12:52 | P.CRDCN ---
History of Present Illness History of present illness: Mr. Hart is a pleasant 87-year-old male past medical history significant for coronary artery disease, systolic heart failure status post BiV ICD placement, dyslipidemia, diabetes mellitus, abdominal aortic stent graft per Dr. Valencia, paroxysmal atrial fibrillation, lymphedema, sick sinus syndrome and hypertension. He follows with Dr. BRODIE Nolasco in the office. If this is seen in consultation for presurgical evaluation. He presented to the hospital yesterday evening after having a slip and fall in the bathroom while trying to put on his pants. He complained of significant pain in the left hip. He was found to have a dislocated total left hip x-ray reveals displacement of the prosthetic head in relation to the acetabular component. There is a plan for surgery around 11:00 today. The time of my exam he is seen resting comfortably in bed in no acute distress. He denies symptoms of chest pain, shortness of breath, palpitations, dizziness, nausea, vomiting or diaphoresis. His only complaint is that of left hip pain. He states he does have been intermittent nonspecific chest pain at home from time to time for which he takes a sublingual nitroglycerin and the pain subsides. EKG reveals biventricular pacing with no acute ST or T-wave abnormalities. Chest x-ray reveals moderate cardiomegaly with no overt heart failure and a possible left pleural effusion. Laboratory data reviewed, hemoglobin 10.2, platelets 84, INR 1.2, sodium 140, potassium 3.6, creatinine 1.5, magnesium 2.1. Current cardiac medications include aspirin 81 mg daily, atenolol 25 mg daily, atorvastatin 40 mg daily, Lasix 40 mg daily, Zaroxolyn 5 mg every other day and potassium supplementation. He also takes Ultram, Januvia, Zantac, Procrit, Tessalon Perles and allopurinol. Most recent cardiac cath performed 2008 revealed 35% complex stenosis, RCA was free of significant disease and 35% narrowing of the mid LAD stent with no significant in-stent restenosis. Most recent echocardiogram performed October 2017 reveals preserved left ventricular systolic function with ejection fraction 50-55%, severely dilated right ventricle, severely dilated left atrium, moderate aortic valve sclerosis, mild aortic regurgitation, severe MR and severe TR. He also has pulmonary hypertension with an RVSP 78.53 mmHg. Echocardiogram performed in 2015 revealed diminished LV systolic function with an EF 25-30%. Review of Systems At the time of my exam: CONSTITUTIONAL: Denies fever. Denies chills. EYES: Denies blurred vision. Denies vision changes. Denies eye pain. EARS, NOSE, MOUTH & THROAT: Denies headache. Denies sore throat. Denies ear pain. CARDIOVASCULAR: Denies chest pain. Denies shortness of breath. Denies orthopnea. Denies PND. Denies palpitations. RESPIRATORY: Denies cough. GASTROINTESTINAL: Denies abdominal pain. Denies diarrhea. Denies constipation. Denies nausea. Denies vomiting. MUSCULOSKELETAL: Complains of left hip pain. INTEGUMENTARY: Denies pruitis. Denies rash. NEUROLOGIC: Denies numbness. Denies tingling. Denies weakness. PSYCHIATRIC: Denies anxiety. Denies depression. ENDOCRINE: Denies fatigue. Denies weight change. Denies polydipsia. Denies polyurina. GENITOURINARY: Denies burning, hematuria or urgency with micturation. HEMATOLOGIC: Denies bleeding. Past Medical History Past Medical History: Coronary Artery Disease (CAD), Cancer, Heart Failure, Diabetes Mellitus, Hyperlipidemia, Myocardial Infarction ([place]), Osteoarthritis ( OA), Pneumonia Additional Past Medical History / Comment(s): 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 diff, degenerative joint disease, moderate to severe mitral and tricuspid regurgitation, infrarenal abdominal aortic aneurysm status post stenting with endo-leak Last Myocardial Infarction Date:: unknown History of Any Multi-Drug Resistant Organisms: C-DIFF Date of last positivie culture/infection: 2011 MDRO Source:: stool Past Surgical History: Cholecystectomy, Heart Catheterization With Stent, Hernia Repair, Joint Replacement, Pacemaker Additional Past Surgical History / Comment(s): Abdominal aortic stenting [address] Valencia, right shoulder replacement, permanent pacemaker, bilateral knee replacements, bilateral hip replacement, left carotid stent, prostatectomy, drainage of psoas muscle abscess, right wrist surgery with removal of foreign body, right eye implantation, cholecystectomy, bilateral hernia repair Past Anesthesia/Blood Transfusion Reactions: No Reported Reaction Date of Last Stent Placement:: unknown Type of Cardiac Device: Permanent Pacemaker Device Placement Date:: unknown Past Psychological History: No Psychological Hx Reported Smoking Status: Former smoker Past Alcohol Use History: None Reported Past Drug Use History: None Reported - Past Family History Father Family Medical History: Unable to Obtain Additional Family Medical History / Comment(s): no heart disease Medications and Allergies Home Medications Medication Instructions Recorded Confirmed Type Allopurinol [Zyloprim] 100 mg PO HS 09/26/16 05/06/18 History Aspirin 81 mg PO HS 09/26/16 05/06/18 History Atorvastatin [Lipitor] 40 mg PO DAILY 09/26/16 05/06/18 History Ranitidine HCl [Zantac] 150 mg PO DAILY 09/26/16 05/06/18 History traMADol HCL [Ultram] 50 mg PO TID PRN 09/26/16 05/06/18 History sitaGLIPtin [Januvia] 100 mg PO DAILY 02/12/17 05/06/18 History Cholecalciferol (Vitamin D3) 2,000 units PO DAILY 10/30/17 05/06/18 History [Vitamin D3] Folic Acid 1 mg PO DAILY 10/30/17 05/06/18 History Benzonatate [Tessalon Perles] 100 mg PO BID 01/14/18 05/06/18 History Furosemide [Lasix] 40 mg PO DAILY 01/14/18 05/06/18 History Metolazone [Zaroxolyn] 5 mg PO Q48H 01/14/18 05/06/18 History Potassium Bicarbonate/Cit AC 25 meq PO BID 01/14/18 05/06/18 History [Potassium 25 Meq Tablet Eff] Atenolol [Tenormin] 25 mg PO DAILY 05/06/18 05/06/18 History Epoetin Eddi [Procrit] 1 dose SQ WEEKLY 05/06/18 05/07/18 History Nitroglycerin Sl Tabs [Nitrostat] 0.4 mg SUBLINGUAL Q5M PRN 05/06/18 05/06/18 History Sennosides-Docusate Sodium 1 tab PO BID PRN 05/06/18 05/06/18 History [Senokot-S] Allergies Allergy/AdvReac Type Severity Reaction Status Date / Time morphine Allergy Severe Unknown Verified 05/06/18 18:50 Physical Exam Vitals: Vital Signs Temp Pulse Pulse Resp BP BP Pulse Ox 05/07/18 11:42 98.7 F 62 20 129/72 98 05/07/18 08:00 97.8 F 67 16 134/83 05/07/18 07:55 67 05/07/18 02:00 98.6 F 62 18 119/67 96 05/06/18 21:11 64 16 142/74 100 05/06/18 21:07 62 16 134/76 100 05/06/18 21:02 70 16 143/73 100 05/06/18 20:57 60 16 133/65 100 05/06/18 20:51 61 16 137/64 98 05/06/18 20:46 67 16 129/72 98 05/06/18 20:33 59 L 16 130/66 100 05/06/18 18:33 97.8 F 56 L 18 149/67 95 Intake and Output 05/06/18 05/07/18 05/07/18 22:59 06:59 14:59 Intake Total 540 Output Total 970 Balance -430 Intake: Intake, IV Titration 240 Amount Sodium Chloride 0.9% 1, 240 000 ml @ 20 mls/hr IV . Q24H COUNT INCLUDES THE [facility] Rx#:[id number] Oral 300 Output: Urine 970 Other: # Voids 3 # Bowel Movements 0 Weight 93.894 kg Blood pressure 134/83 heart rate 67 afebrile maintaining oxygen saturation on nasal cannula 2 L GENERAL: This is a 87-year-old male in no apparent distress at the time of my examination. HEENT: Head is atraumatic, normocephalic. Pupils are equal, round. Sclerae anicteric. Conjunctivae are clear. Mucous membranes of the mouth are moist. Neck is supple. There is significant jugular venous distention. No carotid bruit is heard. LUNGS: Clear to auscultation no wheezes, rales or rhonchi. No chest wall tenderness is noted on palpation or with deep breathing. Diminished bilaterally. HEART: Irregular rate and rhythm with pansystolic murmur, no rubs or gallops. S1 and S2 heard. ABDOMEN: Soft, nontender. Bowel sounds are heard. No organomegaly noted. EXTREMITIES: Significant right lower extremity 2+ pitting edema, trace edema on the left and no calf tenderness noted. VASCULAR: Radial and dorsalis pedis pulses palpated, no evidence of clubbing. NEUROLOGIC: Patient is awake, alert and oriented x3. Results 05/07/18 06:41 05/07/18 06:41 Cardiac Enzymes 05/07/18 Range/Units 06:41 AST 30 (17-59) U/L Coagulation 05/07/18 Range/Units 06:41 PT 11.2 (9.0-12.0) sec CBC 05/07/18 Range/Units 06:41 WBC 5.4 (3.8-10.6) k/uL RBC 3.00 L (4.30-5.90) m/uL Hgb 10.2 L (13.0-17.5) gm/dL Hct 32.5 L (39.0-53.0) % Plt Count 84 L (150-450) k/uL Comprehensive Metabolic Panel 05/07/18 Range/Units 06:41 Sodium 140 (137-145) mmol/L Potassium 3.6 (3.5-5.1) mmol/L Chloride 99 (98-107) mmol/L Carbon Dioxide 31 H (22-30) mmol/L BUN 50 H (9-20) mg/dL Creatinine 1.50 H (0.66-1.25) mg/dL Glucose 133 H (74-99) mg/dL Calcium 9.2 (8.4-10.2) mg/dL AST 30 (17-59) U/L ALT 36 (21-72) U/L Alkaline Phosphatase 203 H (38-126) U/L Total Protein 6.2 L (6.3-8.2) g/dL Albumin 3.1 L (3.5-5.0) g/dL Current Medications Generic Name Dose Route Start Last Admin Trade Name Freq PRN Reason Stop Dose Admin Atenolol 25 mg 05/07/18 09:00 05/07/18 08:05 Tenormin PO 25 mg DAILY RINKU Administration Atorvastatin Calcium 40 mg 05/07/18 09:00 05/07/18 08:05 Lipitor PO 40 mg DAILY RINKU Administration Famotidine 20 mg 05/07/18 09:00 05/07/18 08:05 Pepcid PO 20 mg DAILY RINKU Administration Furosemide 40 mg 05/07/18 09:00 05/07/18 08:05 Lasix PO 40 mg DAILY RINKU Administration Hydromorphone HCl 0.5 mg 05/07/18 00:23 Dilaudid IVP Q4HR PRN Pain Sodium Chloride 1,000 mls @ 20 mls/hr 05/06/18 21:00 05/07/18 01:00 Saline 0.9% IV Not Given .Q24H RINKU Insulin Aspart 0 unit 05/07/18 07:30 05/07/18 09:42 Novolog SQ Not Given ACHS COUNT INCLUDES THE [facility] Protocol Naloxone HCl 0.2 mg 05/06/18 20:53 Narcan IV Q2M PRN Opioid Reversal Nitroglycerin 0.4 mg 05/07/18 07:10 Nitrostat SUBLINGUAL Q5M PRN Chest Pain Senna/Docusate Sodium 1 each 05/07/18 07:10 Senokot-S PO BID PRN Constipation Tramadol HCl 50 mg 05/07/18 00:30 05/07/18 05:37 Ultram PO 50 mg TID RINKU Administration Intake and Output 05/06/18 05/07/18 05/07/18 22:59 06:59 14:59 Intake Total 540 Output Total 970 Balance -430 Intake: Intake, IV Titration 240 Amount Sodium Chloride 0.9% 1, 240 000 ml @ 20 mls/hr IV . Q24H R[facility] Rx#:[id number] Oral 300 Output: Urine 970 Other: # Voids 3 # Bowel Movements 0 Weight 93.894 kg 05/07/18 06:41 05/07/18 06:41 Assessment and Plan Assessment: ASSESSMENT Left hip dislocation History of chronic systolic heart failure Pulmonary hypertension, RVSP greater than 70 Multivitamin valvular heart disease History of coronary artery disease status post angioplasty of the LAD Chronic atrial fibrillation with controlled ventricular response not on long- term anticoagulation secondary to history of bleeding and frequent falls Lymphedema Dyslipidemia PLAN Give 1 dose of IV Lasix 40 mg now. There is no evidence of overt heart failure at this time and no anginal symptoms. Patient is a moderate risk for surgical intervention. This has been verbalized to the daughters as well as the orthopedic team. We recommend cautious fluid administration throughout the procedure and optimal blood pressure control. Magnet 10 be placed on the patient's pacemaker device and we will interrogate the device post-procedure. Imperative to continue beta blockers throughout the hospitalization. We will continue to follow him closely in the postoperative phase. Thank you kindly for this consultation. Nurse Practitioner note has been reviewed, I agree with a documented findings and plan of care. Patient was seen and examined.
--- NOTE | 2018-05-07 13:57 | FL ---
Fluoroscopy HISTORY: Hip dislocation 4 seconds fluoroscopy time supplied to the referring clinician. 1 intraoperative C-arm images docume nt the procedure. See dictated report from orthopedic surgery.
[2018-05-07] MEDS: LACTATED RINGERS 1,000 ML IV SCH ×2 (14:00→22:06)
--- NOTE | 2018-05-07 15:58 | P.PN ---
Progress Note - Text Progress Note Date: 05/07/18 Hospitalist update no: Patient seen and examined by Dr. Murry. For no further today please see full progress note by Dr. Saxena. Laboratory analysis reviewed on patient and TKD appears at or better than baseline. Anemia appears at baseline and thrombocytopenia appears at or near baseline. No additional testing needed at this time. Patient seen and examined at bedside. He states that his pain is currently well controlled. Anxious to undergo operation to fix this. No chest pain or shortness of breath currently. Assessment and plan: Dislocation left hip-plan is for closed reduction with possible open reduction if needed, cardiology asked to clear patient. -Pain control -DVT prophylaxis per orthopedic surgery Comepnsated diastolic Congestive heart failure left ventricular ejection fraction of 50- 55 percent, NYHA stage III -no chronically on ACEI but will not add one -Continue Lasix, betablocker - tele, monitor I and O Diabetes mellitus -Hold oral hypoglycemic agents -Insulin sliding scale - check A1C Paroxysmal A. fib currently rate controlled -Not on anticoagulation CKD stage III -Currently stable -Avoid nephrotoxic Chronic lymphedema -Continue with diuretics History of CAD with severe valvular disease -ASA, plavix, careful fluid management
--- NOTE | 2018-05-07 16:11 | P.OP ---
Date of Procedure: 05/07/18 Procedure(s) Performed: PREOPERATIVE DIAGNOSES: 1. Left hip total hip arthroplasty acute dislocation (posterior), recurrent 2. Moderate obesity 3. Age-related osteopenia/osteoporosis 4. Lymphedema 5. Multiple co-morbidities POSTOPERATIVE DIAGNOSES: 1. Left hip total hip arthroplasty acute dislocation (posterior), recurrent 2. Moderate obesity 3. Age-related osteopenia/osteoporosis 4. Lymphedema 5. Multiple co-morbidities PROCEDURES PERFORMED: 1. Left total hip arthroplasty closed reduction ANESTHESIA: Gen. with muscle relaxation ASBESTOS MICROSCOPIST: Heidy Butcher PA-C (assistance with reduction) COMPLICATIONS: None ESTIMATED BLOOD LOSS: 0 mL. DISPOSITION: To post-anesthesia care unit INDICATIONS: Mr. Hart is an 87-year-old male with multiple medical problems including lymphedema who fell today and sustained a dislocation of his left prosthetic hip. The hip was placed according to the patient approximately [address] Covarrubias. This is his first dislocation. He complains of pain but no numbness or tingling down the leg. He has a significant enlargement of his leg due to lymphedema. He is a poor surgical candidate. I have spoken with the patient and his family and recommended closed reduction of the dislocation with possible open reduction if necessary. I have described the risks of this operation is being inclusive of, but not limited to: Recurrence of dislocation, fracture of femur, disruption of components, liner malfunction, need for further procedures or open surgery, and other risks. We have also discussed the risks of operative surgical open reduction as being inclusive of, but not limited to: Bleeding, infection, scarring, discomfort, blood vessel and/ or nerve damage, and all the above-noted potential risks from the closed reduction. The patient and his family are aware these risks and wish to proceed with surgery. The consent form has been signed. PROCEDURE: After appropriate consent was obtained, the patient was taken to the operating room placed in the supine position. Anesthesia was initiated, and after confirmation of adequate anesthesia, the patient was carefully positioned. Care was taken to make sure that all pressure points were adequately padded. The hip was reduced with manual traction as well as flexion and a bit of internal/external rotation as necessary to maneuver the hip back into position. The hip reduced after moderate force was applied. Subsequently, the hip was checked for range of motion and instability and found to be stable all the way to beyond 100 of flexion. C-arm imaging confirmed concentric reduction. No fractures or loosened components were noted. Final C-arm image was taken and saved. Vascular status remained unchanged and intact throughout the operation. Patient tolerated the procedure well and taken to recovery room in stable condition.
[2018-05-07] MEDS ORDERED: traMADol 50 MG TAB PO STA (16:23)
[2018-05-07 17:40] LABS: Glucose,Whole Blood 127 mg/dL (75-99)
[2018-05-07 21:39] LABS: Glucose,Whole Blood 148 mg/dL (75-99)
[2018-05-08] MEDS: traMADol 50 MG TAB PO SCH ×3 (06:52→21:54)
[2018-05-08 07:16] LABS: Glucose,Whole Blood 123 mg/dL (75-99)
[2018-05-08] MEDS: INSULIN ASPART 100 UNIT/ML 1 ML 10 ML VIAL SQ SCH ×4 (08:29→21:53)
[2018-05-08] MEDS: ATORVASTATIN 40 MG TAB PO SCH (08:30)
[2018-05-08] MEDS: ATENOLOL 25 MG TAB PO SCH (08:30)
[2018-05-08] MEDS: FAMOTIDINE 20 MG TAB PO SCH (08:30)
[2018-05-08] MEDS: FUROSEMIDE 40 MG TAB PO SCH (08:30)
--- NOTE | 2018-05-08 08:38 | P.PN ---
Subjective Progress Note Date: 05/08/18 Principal diagnosis: Dislocation left total hip. Status post fall. This is an 87-year-old male who is status post close reduction of his left total hip. He is doing well from an orthopedic standpoint. He has no new complaints or concerns today. Vital signs are stable. Objective - Vital Signs Vital signs: Vital Signs Temp 99.2 F 05/08/18 00:02 Pulse 59 L 05/08/18 00:02 Resp 18 05/08/18 00:02 BP 109/56 05/08/18 00:02 Pulse Ox 94 L 05/08/18 00:02 Intake & Output 05/07/18 05/08/18 05/08/18 18:59 06:59 18:59 Intake Total 195 480 Output Total 0 Balance 195 480 Intake: IV 75 Intake, IV Titration 120 Amount Sodium Chloride 0.9% 1, 120 000 ml @ 20 mls/hr IV . Q24H [facility] Rx#:[id number] Oral 480 Output: Estimated Blood Loss 0 Other: # Voids 2 1 - Exam This is a pleasant 87-year-old male in no acute distress. He is alert and oriented 3. Exam of the left hip reveals no deformity. Leg lengths are equal. He has full foot and ankle motion. Neurovascular status the lower extremities is intact. - Labs CBC & Chem 7: 05/07/18 06:41 05/07/18 06:41 Labs: Abnormal Lab Results - Last 24 Hours (Table) 05/07/18 05/07/18 05/07/18 Range/Units 11:45 17:39 21:37 POC Glucose (mg/dL) 113 H 127 H 148 H (75-99) mg/dL 05/08/18 Range/Units 07:12 POC Glucose (mg/dL) 123 H (75-99) mg/dL Assessment and Plan (1) Lymphedema Current Visit: Yes Status: Acute Code(s): I89.0 - LYMPHEDEMA, NOT ELSEWHERE CLASSIFIED SNOMED Code(s): 807650049 (2) Hip dislocation, left Current Visit: Yes Status: Acute Code(s): S73.005A - UNSPECIFIED DISLOCATION OF LEFT HIP, INITIAL ENCOUNTER SNOMED Code(s): 005965391 (3) CHF (congestive heart failure) Current Visit: No Status: Acute Code(s): I50.9 - HEART FAILURE, UNSPECIFIED SNOMED Code(s): 20567127 Plan: The clinical and x-ray findings are discussed with the patient. He may be discharged home vs rehab when fitted for the brace and is able to ambulate with physical therapy.
[2018-05-08 08:42] LABS: Calcium 9.3 mg/dL (8.4-10.2); Potassium 3.2 mmol/L (3.5-5.1)
[2018-05-08 08:44] LABS: HCT 30.7 % (39.0-53.0); HGB 9.9 gm/dL (13.0-17.5); Hypochromasia Slight; MCH 33.9 pg (25.0-35.0); MCHC 32.2 g/dL (31.0-37.0); MCV 105.2 fL (80.0-100.0); Macrocytosis Moderate; Mean Platelet Volume 8.6; RBC 2.91 m/uL (4.30-5.90); RDW 15.5 % (11.5-15.5); WBC 4.8 k/uL (3.8-10.6)
[2018-05-08 08:45] LABS: Platelet Count 86 k/uL (150-450)
[2018-05-08] MEDS ORDERED: DARBEPOETIN ALFA 40 MCG/0.4 ML SYRINGE SQ SCH (11:00)
[2018-05-08 11:20] LABS: Glucose,Whole Blood 121 mg/dL (75-99)
--- NOTE | 2018-05-08 13:38 | P.PN ---
Subjective Progress Note Date: 05/08/18 Principal diagnosis: hip pain Patient is an 87-year-old male past medical history of congestive heart failure with ejection fraction 50-55%, paroxysmal atrial fibrillation, diabetes mellitus, and dyslipidemia who presented after a fall at home on his left hip without loss of consciousness. We're asked to consult for medical management. He underwent closed reduction with Dr. Rodney on 05/07. He tolerated the procedure well without any immediate postoperative complications. Patient seen and examined at bedside. He denies any pain. He states it feels uncomfortable wearing his brace. No chest pain, shortness of breath, nausea, or vomiting. He states his legs are always swollen. Objective - Vital Signs Vital signs: Vital Signs Temp 99.2 F 05/08/18 00:02 Pulse 59 L 05/08/18 00:02 Resp 18 05/08/18 00:02 BP 109/56 05/08/18 00:02 Pulse Ox 94 L 05/08/18 00:02 Intake & Output 05/07/18 05/08/18 05/08/18 18:59 06:59 18:59 Intake Total 195 480 Output Total 0 Balance 195 480 Intake: IV 75 Intake, IV Titration 120 Amount Sodium Chloride 0.9% 1, 120 000 ml @ 20 mls/hr IV . Q24H [facility] Rx#:[id number] Oral 480 Output: Estimated Blood Loss 0 Other: # Voids 2 1 - Exam General: non toxic, no distress, appears at stated age Derm: The appearance to bilateral legs with julia ruborous appearance, warm, dry Head: atraumatic, normocephalic, symmetric Eyes: EOMI, no lid lag, anicteric sclera Mouth: no lip lesion, mucus membranes moist Cardiovascular: S1S2 reg, no murmur, positive posterior tibial pulse bilateral, Lungs: Decreased breath sounds bilateral bases, no rhonchi, no rales , no accessory muscle use Abdominal: soft, nontender to palpation, no guarding, no appreciable organomegaly Ext: no gross muscle atrophy, 2+ edema bilateral lower extremities, no contractures Neuro: CN II-XI grossly intact, no focal neuro deficits Psych: Alert, oriented, appropriate affect - Labs CBC & Chem 7: 05/08/18 08:07 05/08/18 08:07 Labs: Abnormal Lab Results - Last 24 Hours (Table) 05/07/18 05/07/18 05/08/18 Range/Units 17:39 21:37 07:12 RBC (4.30-5.90) m/uL Hgb (13.0-17.5) gm/dL Hct (39.0-53.0) % MCV (80.0-100.0) fL Plt Count (150-450) k/uL Potassium (3.5-5.1) mmol/L Carbon Dioxide (22-30) mmol/L BUN (9-20) mg/dL Creatinine (0.66-1.25) mg/dL Glucose (74-99) mg/dL POC Glucose (mg/dL) 127 H 148 H 123 H (75-99) mg/dL 05/08/18 05/08/18 05/08/18 Range/Units 08:07 08:07 11:09 RBC 2.91 L (4.30-5.90) m/uL Hgb 9.9 L (13.0-17.5) gm/dL Hct 30.7 L (39.0-53.0) % MCV 105.2 H (80.0-100.0) fL Plt Count 86 L (150-450) k/uL Potassium 3.2 L (3.5-5.1) mmol/L Carbon Dioxide 31 H (22-30) mmol/L BUN 46 H (9-20) mg/dL Creatinine 1.35 H (0.66-1.25) mg/dL Glucose 106 H (74-99) mg/dL POC Glucose (mg/dL) 121 H (75-99) mg/dL Assessment and Plan Assessment: Dislocation left hip status post close reduction internal fixation -Brace per orthopedic surgery -Pain control - PT/OT - Fall precautions Anemia of chronic disease secondary to renal failure and thrombocytopenia -Appears at baseline -Receives Procrit once weekly, will dose today with Aranesp Comepnsated diastolic Congestive heart failure left ventricular ejection fraction of 50- 55 percent with severe pulmonary HTN, NYHA stage III -no chronically on ACEI but will not add one with renal function -Continue Lasix, betablocker - tele, monitor I and O -Cardiology recommendations appreciated -Resume Zaroxolyn in a.m. Diabetes mellitus -Hold oral hypoglycemic agents, resume Januvia in a.m., this needs to be dose reduced for his chronic kidney disease -Insulin sliding scale -Hemoglobin A1c is 6 Paroxysmal A. fib currently rate controlled -Not on anticoagulation CKD stage III -Currently stable -Avoid nephrotoxic agents Chronic lymphedema -Continue with diuretics History of CAD with severe valvular disease -ASA, plavix, careful fluid management Chronic: HLD CAD s/p stent to the LAD DVT prophylaxis: SCDs, no chemical AC due to plt count Discussed with: Nursing, Daughter, CM Anticipated discharge: 05/11/[address]: [facility] A total of 35 minutes was spent on the care of this complex patient more than 50 % of the time was spent in counseling and care coordination.
[2018-05-08] MEDS ORDERED: POTASSIUM BICARBONATE/CIT AC 20 MEQ TABLET.EFF PO ONE (16:04)
--- NOTE | 2018-05-08 18:00 | P.PN ---
Progress Note - Text Progress Note Date: 05/08/18 Hospitalist Interval Note Called by nursing that moderate amount of blood in bowel movement. Patient seen and examined at bedside. Feeling a little woozy. Denies chest pain and shortness of breath. States that he has a history of hernia. Eating currently. Vital signs reviewed General: [non toxic], [no distress], [appears at stated age] Rectal Exam: Hemorrhoid felt at 9 oclock position small. Psych: [Alert], [oriented], [appropriate affect] Bowel movement examined it is hard and the outside of the movement is covered in blood but stool normal color. Assessment/Plan: Bright red blood per rectum. Suspect hemorrhoid internal serial CBC ordered. Protonix BID. Not on any anticoagulants. Will follow closely. Stool softner ordered
[2018-05-08 18:09] LABS: Basophils % (A) 0 %; Eosinophils # (A) 0.2 k/uL (0-0.7); Eosinophils % (A) 4 %; HCT 34.2 % (39.0-53.0); Hypochromasia Slight; Lymphocytes % (A) 22 %; MCH 34.1 pg (25.0-35.0); MCHC 32.2 g/dL (31.0-37.0); MCV 105.9 fL (80.0-100.0); Macrocytosis Moderate; Mean Platelet Volume 8.4; Monocytes # (A) 0.4 k/uL (0-1.0); Monocytes % (A) 9 %; Neutrophils % (A) 63 %; Platelet Count 100 k/uL (150-450); RBC 3.23 m/uL (4.30-5.90); RDW 15.7 % (11.5-15.5); WBC 4.8 k/uL (3.8-10.6)
[2018-05-08] MEDS ORDERED: HEPARIN SODIUM,PORCINE 5,000 UNIT/ML 1 ML VIAL SQ SCH (21:00)
[2018-05-08 21:40] LABS: Glucose,Whole Blood 164 mg/dL (75-99)
[2018-05-08] MEDS: POLYETHYLENE GLYCOL 3350 17 GM POWD.PACK PO SCH (21:45)
[2018-05-08] MEDS: PANTOPRAZOLE 40 MG/10 ML VIAL IVP SCH (21:56)
[2018-05-08 23:57] LABS: Basophils % (A) 0 %; Eosinophils # (A) 0.2 k/uL (0-0.7); Eosinophils % (A) 4 %; HCT 30.9 % (39.0-53.0); Hypochromasia Slight; Lymphocytes # (A) 0.8 k/uL (1.0-4.8); Lymphocytes % (A) 18 %; MCH 34.3 pg (25.0-35.0); MCHC 32.3 g/dL (31.0-37.0); MCV 106.4 fL (80.0-100.0); Macrocytosis Moderate; Mean Platelet Volume 9.1; Monocytes # (A) 0.5 k/uL (0-1.0); Monocytes % (A) 11 %; Neutrophils # (A) 2.7 k/uL (1.3-7.7); Neutrophils % (A) 64 %; RDW 15.7 % (11.5-15.5); WBC 4.3 k/uL (3.8-10.6)
[2018-05-08 23:59] LABS: Platelet Count 85 k/uL (150-450)
[2018-05-09 06:03] LABS: Anisocytosis Slight; Basophils % (A) 1 %; Eosinophils # (A) 0.2 k/uL (0-0.7); Eosinophils % (A) 6 %; HGB 10.2 gm/dL (13.0-17.5); Hypochromasia Slight; Lymphocytes # (A) 0.9 k/uL (1.0-4.8); Lymphocytes % (A) 21 %; MCH 34.2 pg (25.0-35.0); MCHC 31.9 g/dL (31.0-37.0); MCV 107.3 fL (80.0-100.0); Macrocytosis Marked; Mean Platelet Volume 8.6; Monocytes # (A) 0.4 k/uL (0-1.0); Monocytes % (A) 10 %; Neutrophils # (A) 2.6 k/uL (1.3-7.7); Neutrophils % (A) 60 %; RBC 2.99 m/uL (4.30-5.90); RDW 16.2 % (11.5-15.5); WBC 4.4 k/uL (3.8-10.6)
[2018-05-09 06:10] LABS: Platelet Count 86 k/uL (150-450)
[2018-05-09 06:47] LABS: Glucose,Whole Blood 125 mg/dL (75-99)
[2018-05-09] MEDS: INSULIN ASPART 100 UNIT/ML 1 ML 10 ML VIAL SQ SCH ×4 (08:36→20:40)
[2018-05-09] MEDS: ATORVASTATIN 40 MG TAB PO SCH (08:41)
[2018-05-09] MEDS: FUROSEMIDE 40 MG TAB PO SCH (08:41)
[2018-05-09] MEDS: ATENOLOL 25 MG TAB PO SCH (08:41)
[2018-05-09] MEDS: traMADol 50 MG TAB PO SCH ×3 (08:41→21:54)
[2018-05-09] MEDS: PANTOPRAZOLE 40 MG/10 ML VIAL IVP SCH ×2 (08:42→20:39)
--- NOTE | 2018-05-09 08:57 | P.DS ---
Providers Date of admission: 05/07/18 07:57 Expected date of discharge: 05/09/18 Attending physician: Jas Rodney Consults: 05/07/18 00:10 Consult Physician Routine Consulting Provider: Elizabeth Murry Consult Reason/Comments: medical management Do you want consulting provider notified?: Yes, Notify in am 05/07/18 07:27 Consult Physician Routine Consulting Provider: Shaun Schumacher Consult Reason/Comments: cardiac clearance, SOB with activity , NYHA III Do you want consulting provider notified?: Yes Primary care physician: Artemio Jones - Discharge Diagnosis(es) (1) S/P closed reduction of dislocated total hip prosthesis Current Visit: Yes Status: Acute (2) Hip dislocation, left Current Visit: Yes Status: Acute Hospital Course: This is a 87-year-old male who sustained a dislocation of his left total hip arthroplasty after a fall on 05/07/2018. The patient presents for evaluation. After discussion and consideration patient elects to proceed with closed reduction left total hip arthroplasty. The patient is seen preoperatively by Dr. Rodney and medically cleared for surgery by internal medicine and cardiology. Patient is admitted to [facility] on 05/07/2018 for left hip dislocation and closed reduction of total hip arthroplasty is performed on 05/07. The procedures performed without complication or sequelae. The patient is doing well postoperatively. Labs and vital signs are stable on day of discharge. On day of discharge patient has full foot and ankle motion without difficulty or pain. Calves are soft and nontender bilaterally. Neurovascular status to the left lower extremity is intact. Patient is discharged to rehab in good condition. Please see med rec for accurate list of home medications. Plan - Discharge Summary Discharge Rx Participant: Yes New Discharge Prescriptions: New HYDROcodone/APAP 5-325MG [Hudson 5-325] 1 - 2 each PO Q4-6H PRN #50 tab PRN Reason: Pain Sennosides-Docusate Sodium [Senokot-S] 1 tab PO BID #60 tablet No Action Ranitidine HCl [Zantac] 150 mg PO DAILY Atorvastatin [Lipitor] 40 mg PO DAILY Aspirin 81 mg PO HS Allopurinol [Zyloprim] 100 mg PO HS traMADol HCL [Ultram] 50 mg PO TID PRN PRN Reason: Pain sitaGLIPtin [Januvia] 100 mg PO DAILY Folic Acid 1 mg PO DAILY Cholecalciferol (Vitamin D3) [Vitamin D3] 2,000 units PO DAILY Furosemide [Lasix] 40 mg PO DAILY Metolazone [Zaroxolyn] 5 mg PO Q48H Potassium Bicarbonate/Cit AC [Potassium 25 Meq Tablet Eff] 25 meq PO BID Benzonatate [Tessalon Perles] 100 mg PO BID Atenolol [Tenormin] 25 mg PO DAILY Nitroglycerin Sl Tabs [Nitrostat] 0.4 mg SUBLINGUAL Q5M PRN PRN Reason: Chest Pain Sennosides-Docusate Sodium [Senokot-S] 1 tab PO BID PRN PRN Reason: Constipation Epoetin Eddi [Procrit] 1 dose SQ WEEKLY Discharge Medication List Allopurinol [Zyloprim] 100 mg PO HS 09/26/16 [History] Aspirin 81 mg PO HS 09/26/16 [History] Atorvastatin [Lipitor] 40 mg PO DAILY 09/26/16 [History] Ranitidine HCl [Zantac] 150 mg PO DAILY 09/26/16 [History] traMADol HCL [Ultram] 50 mg PO TID PRN 09/26/16 [History] sitaGLIPtin [Januvia] 100 mg PO DAILY 02/12/17 [History] Cholecalciferol (Vitamin D3) [Vitamin D3] 2,000 units PO DAILY 10/30/17 [History ] Folic Acid 1 mg PO DAILY 10/30/17 [History] Benzonatate [Tessalon Perles] 100 mg PO BID 01/14/18 [History] Furosemide [Lasix] 40 mg PO DAILY 01/14/18 [History] Metolazone [Zaroxolyn] 5 mg PO Q48H 01/14/18 [History] Potassium Bicarbonate/Cit AC [Potassium 25 Meq Tablet Eff] 25 meq PO BID [History] Atenolol [Tenormin] 25 mg PO DAILY 05/06/18 [History] Epoetin Eddi [Procrit] 1 dose SQ WEEKLY 05/06/18 [History] Nitroglycerin Sl Tabs [Nitrostat] 0.4 mg SUBLINGUAL Q5M PRN 05/06/18 [History] Sennosides-Docusate Sodium [Senokot-S] 1 tab PO BID PRN 05/06/18 [History] HYDROcodone/APAP 5-325MG [Hudson 5-325] 1 - 2 each PO Q4-6H PRN #50 tab 05/08/18 [Rx] Sennosides-Docusate Sodium [Senokot-S] 1 tab PO BID #60 tablet 05/08/18 [Rx] Follow up Appointment(s)/Referral(s): Martin Covarrubias MD [REFERRING] - 2 Weeks Jas Rodney MD [STAFF PHYSICIAN] - 05/22/18 1:00 pm Artemio Jones MD [Primary Care Provider] - 05/14/18 11:15 am Activity/Diet/Wound Care/Special Instructions: Hip abductor brace - [employer]- [phone] Patient may bear weight as tolerated in brace. He is to keep the brace on whenever upright. Follow-up with his primary orthopedic surgeon Dr. Covarrubias Patient receives Procrit Once weekly on Fridays. Discharge Disposition: TRANSFER TO SNF/ECF
--- NOTE | 2018-05-09 10:08 | P.PN ---
Subjective Progress Note Date: 05/09/18 This is an 87-year-old male who is status post closed reduction of left total hip arthroplasty. This is postoperative day #2. Today patient states that his pain is under control. Patient denies any new symptoms or complaints. Patient denies any fever/chills, numbness, weakness, tingling, abdominal pain, shortness of breath or chest pain. Objective - Vital Signs Vital signs: Vital Signs Temp 98.1 F 05/09/18 07:50 Pulse 65 05/09/18 07:50 Resp 18 05/09/18 07:50 BP 117/67 05/09/18 07:50 Pulse Ox 95 05/09/18 07:50 Intake & Output 05/08/18 05/09/18 05/09/18 18:59 06:59 18:59 Intake Total 160 160 180 Output Total 250 Balance 160 -90 180 Intake: Intake, IV Titration 160 160 Amount Lactated Ringers 1,000 ml 160 160 @ 100 mls/hr IV .Q10H RINKU Rx#:[id number] Oral 180 Output: Urine 250 Other: # Voids 2 # Bowel Movements 0 - Exam Vital signs are stable. Patient is in no acute distress and is alert and oriented 3. Calf is soft and nontender to palpation. Patient has full foot and ankle motion without pain or difficulty. Neurovascular status and circulatory status are intact. - Labs CBC & Chem 7: 05/09/18 05:30 05/08/18 08:07 Labs: Abnormal Lab Results - Last 24 Hours (Table) 05/08/18 05/08/18 05/08/18 Range/Units 11:09 17:57 21:39 RBC 3.23 L (4.30-5.90) m/uL Hgb 11.0 L (13.0-17.5) gm/dL Hct 34.2 L (39.0-53.0) % MCV 105.9 H (80.0-100.0) fL RDW 15.7 H (11.5-15.5) % Plt Count 100 L (150-450) k/uL Lymphocytes # (1.0-4.8) k/uL POC Glucose (mg/dL) 121 H 164 H (75-99) mg/dL 05/08/18 05/09/18 05/09/18 Range/Units 23:27 05:30 06:45 RBC 2.90 L 2.99 L (4.30-5.90) m/uL Hgb 10.0 L 10.2 L (13.0-17.5) gm/dL Hct 30.9 L 32.0 L (39.0-53.0) % MCV 106.4 H 107.3 H (80.0-100.0) fL RDW 15.7 H 16.2 H (11.5-15.5) % Plt Count 85 L 86 L (150-450) k/uL Lymphocytes # 0.8 L 0.9 L (1.0-4.8) k/uL POC Glucose (mg/dL) 125 H (75-99) mg/dL Assessment and Plan (1) S/P closed reduction of dislocated total hip prosthesis Current Visit: Yes Status: Acute Code(s): Z98.890 - OTHER SPECIFIED POSTPROCEDURAL STATES SNOMED Code(s): 514319637 (2) Hip dislocation, left Current Visit: Yes Status: Acute Code(s): S73.005A - UNSPECIFIED DISLOCATION OF LEFT HIP, INITIAL ENCOUNTER SNOMED Code(s): 875332335 Plan: Continue routine postop care. Continue hip precautions with abductor pillow while in bed. Must have abduction brace on when out of bed. Continue antocoagulation. Weightbearing as tolerated with a walker and brace. Appreciate input from internal medicine and cardiology. Discharge to rehab likely 05/11/2018.
[2018-05-09 12:00] LABS: Glucose,Whole Blood 172 mg/dL (75-99)
--- NOTE | 2018-05-09 12:42 | P.PN ---
Subjective Progress Note Date: 05/09/18 Principal diagnosis: hip pain Patient is an 87-year-old male past medical history of congestive heart failure with ejection fraction 50-55%, paroxysmal atrial fibrillation, diabetes mellitus, and dyslipidemia who presented after a fall at home on his left hip without loss of consciousness. We're asked to consult for medical management. He underwent closed reduction with Dr. Rodney on 05/07. He tolerated the procedure well without any immediate postoperative complications. He developed BRBPR on the night of 05/08 and was found to have an internal hemorrhoid on physical exam. CBC where followed and were stable. Patient seen and examined at bedside. Feeling well. No chest pain or shortness of breath. No rectal pain. No additional bowel movements since last night. No shortness of breath. Has not gotten up with therapy today. Objective - Vital Signs Vital signs: Vital Signs Temp 98.1 F 05/09/18 07:50 Pulse 65 05/09/18 07:50 Resp 18 05/09/18 07:50 BP 117/67 05/09/18 07:50 Pulse Ox 95 05/09/18 07:50 Intake & Output 05/08/18 05/09/18 05/09/18 18:59 06:59 18:59 Intake Total 160 160 180 Output Total 250 Balance 160 -90 180 Intake: Intake, IV Titration 160 160 Amount Lactated Ringers 1,000 ml 160 160 @ 100 mls/hr IV .Q10H RINKU Rx#:[id number] Oral 180 Output: Urine 250 Other: # Voids 2 # Bowel Movements 0 - Exam General: non toxic, no distress, appears at stated age Derm: The appearance to bilateral legs with julia ruborous appearance, warm, dry Head: atraumatic, normocephalic, symmetric Eyes: EOMI, no lid lag, anicteric sclera Mouth: no lip lesion, mucus membranes moist Cardiovascular: S1S2 reg, no murmur, positive posterior tibial pulse bilateral, Lungs: Clear to auscultation bilaterally, no rhonchi, no rales , no accessory muscle use Abdominal: soft, nontender to palpation, no guarding, no appreciable organomegaly Ext: no gross muscle atrophy, 2+ edema bilateral lower extremities, no contractures Neuro: CN II-XI grossly intact, no focal neuro deficits Psych: Alert, oriented, appropriate affect - Labs CBC & Chem 7: 05/09/18 05:30 05/08/18 08:07 Labs: Abnormal Lab Results - Last 24 Hours (Table) 05/08/18 05/08/18 05/08/18 Range/Units 17:57 21:39 23:27 RBC 3.23 L 2.90 L (4.30-5.90) m/uL Hgb 11.0 L 10.0 L (13.0-17.5) gm/dL Hct 34.2 L 30.9 L (39.0-53.0) % MCV 105.9 H 106.4 H (80.0-100.0) fL RDW 15.7 H 15.7 H (11.5-15.5) % Plt Count 100 L 85 L (150-450) k/uL Lymphocytes # 0.8 L (1.0-4.8) k/uL POC Glucose (mg/dL) 164 H (75-99) mg/dL 05/09/18 05/09/18 05/09/18 Range/Units 05:30 06:45 11:47 RBC 2.99 L (4.30-5.90) m/uL Hgb 10.2 L (13.0-17.5) gm/dL Hct 32.0 L (39.0-53.0) % MCV 107.3 H (80.0-100.0) fL RDW 16.2 H (11.5-15.5) % Plt Count 86 L (150-450) k/uL Lymphocytes # 0.9 L (1.0-4.8) k/uL POC Glucose (mg/dL) 125 H 172 H (75-99) mg/dL Assessment and Plan Assessment: Dislocation left hip status post close reduction internal fixation -Brace per orthopedic surgery -Pain control - PT/OT - Fall precautions Internal hemorrhoid - stool softner - no additional testing at this point in time - serial CBC were stable. Anemia of chronic disease secondary to renal failure and thrombocytopenia -Appears at baseline -Receives Procrit once weekly on fridays Compensated Diastolic Congestive heart failure left ventricular ejection fraction of 50- 55 percent with severe pulmonary HTN, NYHA stage III -no chronically on ACEI but will not add one with renal function -Continue Lasix, betablocker - tele, monitor I and O -Cardiology recommendations appreciated -Resume Zaroxolyn in a.m. Diabetes mellitus -Januvia -Insulin sliding scale -Hemoglobin A1c is 6 Paroxysmal A. fib currently rate controlled -Not on anticoagulation CKD stage III -Currently stable -Avoid nephrotoxic agents Chronic lymphedema -Continue with diuretics History of CAD with severe valvular disease -ASA, plavix, careful fluid management Chronic: HLD CAD s/p stent to the LAD DVT prophylaxis: SCDs, no chemical AC due to plt count Discussed with: Nursing Anticipated discharge: 05/11/[address]: [facility] A total of 35 minutes was spent on the care of this complex patient more than 50 % of the time was spent in counseling and care coordination.
[2018-05-09] MEDS: LINAGLIPTIN 5 MG TABLET PO SCH (13:12)
[2018-05-09 14:59] VITALS: RESP 16
[2018-05-09 17:13] LABS: Glucose,Whole Blood 175 mg/dL (75-99)
[2018-05-09] MEDS: POLYETHYLENE GLYCOL 3350 17 GM POWD.PACK PO SCH (20:36)
[2018-05-09 21:24] LABS: Glucose,Whole Blood 211 mg/dL (75-99)
[2018-05-09] MEDS ORDERED: traMADol 50 MG TAB PO STA (23:53)
[2018-05-10 06:42] LABS: Glucose,Whole Blood 125 mg/dL (75-99)
[2018-05-10 07:11] LABS: Anisocytosis Slight; HCT 32.8 % (39.0-53.0); HGB 10.3 gm/dL (13.0-17.5); Hypochromasia Slight; MCH 33.8 pg (25.0-35.0); MCHC 31.6 g/dL (31.0-37.0); MCV 107.2 fL (80.0-100.0); Macrocytosis Marked; Mean Platelet Volume 8.4; RBC 3.06 m/uL (4.30-5.90); RDW 16.2 % (11.5-15.5); WBC 5.3 k/uL (3.8-10.6)
[2018-05-10 07:23] LABS: Platelet Count 96 k/uL (150-450)
[2018-05-10 07:28] LABS: Calcium 9.2 mg/dL (8.4-10.2); Potassium 3.5 mmol/L (3.5-5.1)
[2018-05-10] MEDS: INSULIN ASPART 100 UNIT/ML 1 ML 10 ML VIAL SQ SCH ×4 (08:06→20:56)
[2018-05-10] MEDS: FUROSEMIDE 40 MG TAB PO SCH (08:11)
[2018-05-10] MEDS: ATENOLOL 25 MG TAB PO SCH (08:11)
[2018-05-10] MEDS: traMADol 50 MG TAB PO SCH ×3 (08:11→20:56)
[2018-05-10] MEDS: ATORVASTATIN 40 MG TAB PO SCH (08:11)
[2018-05-10] MEDS: LINAGLIPTIN 5 MG TABLET PO SCH (08:11)
[2018-05-10] MEDS: PANTOPRAZOLE 40 MG/10 ML VIAL IVP SCH ×2 (08:12→20:55)
--- NOTE | 2018-05-10 10:17 | P.PN ---
Subjective Progress Note Date: 05/10/18 This is an 87-year-old male who is status post closed reduction of left total hip arthroplasty. This is postoperative day #3. Patient is seen and evaluated at bedside. Patient states that his pain is under control. Patient denies any new symptoms or complaints. Patient denies any fever/chills, numbness, weakness , tingling, abdominal pain, shortness of breath or chest pain. Objective - Vital Signs Vital signs: Vital Signs Temp 98.2 F 05/10/18 07:58 Pulse 75 05/10/18 07:58 Resp 16 05/10/18 07:58 BP 132/73 05/10/18 07:58 Pulse Ox 98 05/10/18 07:58 Intake & Output 05/09/18 05/10/18 05/10/18 18:59 06:59 18:59 Intake Total 510 400 250 Output Total 600 200 Balance -90 400 50 Intake: Oral 510 200 250 Other 200 Output: Urine 600 200 Other: # Voids 3 # Bowel Movements 1 1 - Exam Vital signs are stable. Patient is in no acute distress and is alert and oriented 3. Calf is soft and nontender to palpation. Patient has full foot and ankle motion without pain or difficulty. Neurovascular status and circulatory status are intact. - Labs CBC & Chem 7: 05/10/18 07:00 05/10/18 07:00 Labs: Abnormal Lab Results - Last 24 Hours (Table) 05/09/18 05/09/18 05/09/18 Range/Units 11:47 16:52 20:34 RBC (4.30-5.90) m/uL Hgb (13.0-17.5) gm/dL Hct (39.0-53.0) % MCV (80.0-100.0) fL RDW (11.5-15.5) % Plt Count (150-450) k/uL Carbon Dioxide (22-30) mmol/L BUN (9-20) mg/dL Creatinine (0.66-1.25) mg/dL Glucose (74-99) mg/dL POC Glucose (mg/dL) 172 H 175 H 211 H (75-99) mg/dL 05/10/18 05/10/18 05/10/18 Range/Units 06:41 07:00 07:00 RBC 3.06 L (4.30-5.90) m/uL Hgb 10.3 L (13.0-17.5) gm/dL Hct 32.8 L (39.0-53.0) % MCV 107.2 H (80.0-100.0) fL RDW 16.2 H (11.5-15.5) % Plt Count 96 L (150-450) k/uL Carbon Dioxide 33 H (22-30) mmol/L BUN 45 H (9-20) mg/dL Creatinine 1.57 H (0.66-1.25) mg/dL Glucose 125 H (74-99) mg/dL POC Glucose (mg/dL) 125 H (75-99) mg/dL Assessment and Plan (1) S/P closed reduction of dislocated total hip prosthesis Current Visit: Yes Status: Acute Code(s): Z98.890 - OTHER SPECIFIED POSTPROCEDURAL STATES SNOMED Code(s): 512772712 (2) Hip dislocation, left Current Visit: Yes Status: Acute Code(s): S73.005A - UNSPECIFIED DISLOCATION OF LEFT HIP, INITIAL ENCOUNTER SNOMED Code(s): 124277540 Plan: Continue routine postop care. Continue hip precautions with abductor pillow while in bed. Must have abduction brace on when out of bed. Continue antocoagulation. Weightbearing as tolerated with a walker and brace. Appreciate input from internal medicine and cardiology. Discharge to rehab likely 05/11/2018.
[2018-05-10 11:19] LABS: Glucose,Whole Blood 136 mg/dL (75-99)
--- NOTE | 2018-05-10 14:52 | P.PN ---
Subjective Progress Note Date: 05/10/18 Principal diagnosis: hip pain Patient is an 87-year-old male past medical history of congestive heart failure with ejection fraction 50-55%, paroxysmal atrial fibrillation, diabetes mellitus, and dyslipidemia who presented after a fall at home on his left hip without loss of consciousness. We're asked to consult for medical management. He underwent closed reduction with Dr. Rodney on 05/07. He tolerated the procedure well without any immediate postoperative complications. He developed BRBPR on the night of 05/08 and was found to have an internal hemorrhoid on physical exam. CBC where followed and were stable. Next bowel movement without blood and soft. Patient seen and examined at bedside. Doing well. Still having intermittent sharp pain. Was able to ambulate in the hallways of therapy. No chest pain, shortness of breath, nausea, or vomiting. Objective - Vital Signs Vital signs: Vital Signs Temp 98.2 F 05/10/18 14:10 Pulse 68 05/10/18 14:10 Resp 16 05/10/18 14:10 BP 118/79 05/10/18 14:10 Pulse Ox 96 05/10/18 14:10 Intake & Output 05/09/18 05/10/18 05/10/18 18:59 06:59 18:59 Intake Total 510 400 486 Output Total 600 400 Balance -90 400 86 Intake: Oral 510 200 486 Other 200 Output: Urine 600 400 Other: # Voids 3 # Bowel Movements 1 1 1 - Exam General: non toxic, no distress, appears at stated age Derm: The appearance to bilateral legs with julia ruborous appearance, warm, dry Head: atraumatic, normocephalic, symmetric Eyes: EOMI, no lid lag, anicteric sclera Mouth: no lip lesion, mucus membranes moist Cardiovascular: S1S2 reg, no murmur, positive posterior tibial pulse bilateral, Lungs: Clear to auscultation bilaterally, no rhonchi, no rales , no accessory muscle use Abdominal: soft, nontender to palpation, no guarding, no appreciable organomegaly Ext: no gross muscle atrophy, 2+ edema right lower extremity-per patient his right lower extremity is always more swollen than the left, no contractures, hip abductor brace in place Neuro: CN II-XI grossly intact, no focal neuro deficits Psych: Alert, oriented, appropriate affect - Labs CBC & Chem 7: 05/10/18 07:00 05/10/18 07:00 Labs: Abnormal Lab Results - Last 24 Hours (Table) 05/09/18 05/09/18 05/10/18 Range/Units 16:52 20:34 06:41 RBC (4.30-5.90) m/uL Hgb (13.0-17.5) gm/dL Hct (39.0-53.0) % MCV (80.0-100.0) fL RDW (11.5-15.5) % Plt Count (150-450) k/uL Carbon Dioxide (22-30) mmol/L BUN (9-20) mg/dL Creatinine (0.66-1.25) mg/dL Glucose (74-99) mg/dL POC Glucose (mg/dL) 175 H 211 H 125 H (75-99) mg/dL 05/10/18 05/10/18 05/10/18 Range/Units 07:00 07:00 11:13 RBC 3.06 L (4.30-5.90) m/uL Hgb 10.3 L (13.0-17.5) gm/dL Hct 32.8 L (39.0-53.0) % MCV 107.2 H (80.0-100.0) fL RDW 16.2 H (11.5-15.5) % Plt Count 96 L (150-450) k/uL Carbon Dioxide 33 H (22-30) mmol/L BUN 45 H (9-20) mg/dL Creatinine 1.57 H (0.66-1.25) mg/dL Glucose 125 H (74-99) mg/dL POC Glucose (mg/dL) 136 H (75-99) mg/dL Assessment and Plan Assessment: Dislocation left hip status post close reduction internal fixation -Brace per orthopedic surgery -Pain control - PT/OT - Fall precautions Internal hemorrhoid - stool softner - no additional testing at this point in time - serial CBC were stable. Anemia of chronic disease secondary to renal failure and thrombocytopenia -Appears at baseline -Receives Procrit once weekly on fridays Compensated Diastolic Congestive heart failure left ventricular ejection fraction of 50- 55 percent with severe pulmonary HTN, NYHA stage III -no chronically on ACEI but will not add one with renal function -Continue Lasix, betablocker - tele, monitor I and O -Cardiology recommendations appreciated -Resume Zaroxolyn in a.m. Diabetes mellitus -Januvia -Insulin sliding scale -Hemoglobin A1c is 6 Paroxysmal A. fib currently rate controlled -Not on anticoagulation CKD stage III -Currently stable -Avoid nephrotoxic agents Chronic lymphedema -Continue with diuretics History of CAD with severe valvular disease -ASA, plavix, careful fluid management Chronic: HLD CAD s/p stent to the LAD Medically stable for discharge at the discretion of orthopedic surgery. DVT prophylaxis: SCDs, no chemical AC due to plt count Discussed with: Nursing Anticipated discharge: 05/11/[address]: [facility] A total of 35 minutes was spent on the care of this complex patient more than 50 % of the time was spent in counseling and care coordination.
[2018-05-10 17:19] LABS: Glucose,Whole Blood 146 mg/dL (75-99)
[2018-05-10] MEDS: POLYETHYLENE GLYCOL 3350 17 GM POWD.PACK PO SCH (20:57)
[2018-05-10 21:04] LABS: Glucose,Whole Blood 180 mg/dL (75-99)
[2018-05-11 08:17] LABS: Glucose,Whole Blood 136 mg/dL (75-99)
[2018-05-11] MEDS: traMADol 50 MG TAB PO SCH (08:24)
[2018-05-11] MEDS: LINAGLIPTIN 5 MG TABLET PO SCH (08:25)
[2018-05-11] MEDS: ATORVASTATIN 40 MG TAB PO SCH (08:25)
[2018-05-11] MEDS: ATENOLOL 25 MG TAB PO SCH (08:25)
[2018-05-11] MEDS: PANTOPRAZOLE 40 MG/10 ML VIAL IVP SCH (08:25)
[2018-05-11] MEDS: FUROSEMIDE 40 MG TAB PO SCH (08:25)
[2018-05-11] MEDS: INSULIN ASPART 100 UNIT/ML 1 ML 10 ML VIAL SQ SCH ×2 (08:25→12:54)
--- NOTE | 2018-05-11 09:40 | P.PN ---
Progress Note - Text Progress Note Date: 05/11/18 This is an addendum to the discharge summary. Patient's discharge was held due to weekend placement at rehab. The patient is rating go to rehab today. He may be discharged and is to follow-up with his primary orthopedic surgeon Dr. Covarrubias.
[2018-05-11 11:22] LABS: Glucose,Whole Blood 133 mg/dL (75-99)
[2018-05-11 14:37] VITALS: BP 124/71; PULSE 66; TEMP 98.7
--- NOTE | 2018-05-11 14:41 | P.PN ---
Subjective Progress Note Date: 05/11/18 Principal diagnosis: Patient is an 87-year-old male past medical history of congestive heart failure with ejection fraction 50-55%, paroxysmal atrial fibrillation, diabetes mellitus, and dyslipidemia who presented after a fall at home on his left hip without loss of consciousness. We're asked to consult for medical management. He underwent closed reduction with Dr. Rodney on 05/07. He tolerated the procedure well without any immediate postoperative complications. He developed BRBPR on the night of 05/08 and was found to have an internal hemorrhoid on physical exam. CBC where followed and were stable. Next bowel movement without blood and soft. Patient seen and examined at bedside sitting up in a recliner, reporting significant improvement of his lower extremity edema.. Denying shortness of breath no chest pain, patient had been walking with physical therapy Objective - Vital Signs Vital signs: Vital Signs Temp 98.7 F 05/11/18 14:36 Pulse 66 05/11/18 14:36 Resp 16 05/11/18 14:36 BP 124/71 05/11/18 14:36 Pulse Ox 92 L 05/11/18 07:35 Intake & Output 05/10/18 05/11/18 05/11/18 18:59 06:59 18:59 Intake Total 486 Output Total 400 Balance 86 Weight 88 kg 84.5 kg Intake: Oral 486 Output: Urine 400 Other: # Voids 4 # Bowel Movements 1 - Exam General: non toxic, no distress, appears at stated age Derm: The appearance to bilateral legs with julia ruborous appearance, warm, dry Head: atraumatic, normocephalic, symmetric Eyes: EOMI, no lid lag, anicteric sclera Mouth: no lip lesion, mucus membranes moist Cardiovascular: S1S2 reg, no murmur, positive posterior tibial pulse bilateral, Lungs: Clear to auscultation bilaterally, no rhonchi, no rales , no accessory muscle use Abdominal: soft, nontender to palpation, no guarding, no appreciable organomegaly Ext: no gross muscle atrophy, 2+ edema right lower extremity-per patient his right lower extremity is always more swollen than the left, no contractures, hip abductor brace in place Neuro: CN II-XI grossly intact, no focal neuro deficits Psych: Alert, oriented, appropriate affect - Labs CBC & Chem 7: 05/10/18 07:00 05/10/18 07:00 Labs: Abnormal Lab Results - Last 24 Hours (Table) 05/10/18 05/10/18 05/11/18 Range/Units 17:02 20:55 08:12 POC Glucose (mg/dL) 146 H 180 H 136 H (75-99) mg/dL 05/11/18 Range/Units 11:18 POC Glucose (mg/dL) 133 H (75-99) mg/dL Assessment and Plan Plan: Dislocation left hip status post close reduction internal fixation -Brace per orthopedic surgery -Pain control - PT/OT - Fall precautions Internal hemorrhoid - stool softner - no additional testing at this point in time - serial CBC were stable. Anemia of chronic disease secondary to renal failure and thrombocytopenia -Appears at baseline -Receives Procrit once weekly on fridays Compensated Diastolic Congestive heart failure left ventricular ejection fraction of 50- 55 percent with severe pulmonary HTN, NYHA stage III -no chronically on ACEI but will not add one with renal function -Continue Lasix, betablocker - tele, monitor I and O -Cardiology recommendations appreciated -Resume Zaroxolyn in a.m. Diabetes mellitus -Januvia -Insulin sliding scale -Hemoglobin A1c is 6 Paroxysmal A. fib currently rate controlled -Not on anticoagulation CKD stage III -Currently stable -Avoid nephrotoxic agents Chronic lymphedema -Continue with diuretics History of CAD with severe valvular disease -ASA, plavix, careful fluid management Chronic: HLD CAD s/p stent to the LAD Medically stable for discharge at the discretion of orthopedic surgery.
== END 2018-05-11 15:05 | DRG 560 ==
LOC: EC 18:30 → 3SUR 20:53 → OBSVTOIN 05-07 07:57
PROVIDERS: ADMIT Orthopaedic Surgery; ATTEND Orthopaedic Surgery
PROC: 0SWBXJZ Revision of Synthetic Substitute in Left Hip Joint, External Approach (ICD-10-PCS; principal; 2018-05-07 07:30)
DX: T84.021A Dislocation of internal left hip prosthesis, initial encounter (principal); I13.0 Hypertensive heart and chronic kidney disease with heart failure and stage 1 through stage 4 chronic kidney disease, or unspecified chronic kidney disease; I50.42 Chronic combined systolic (congestive) and diastolic (congestive) heart failure; Y83.8 Other surgical procedures as the cause of abnormal reaction of the patient, or of later complication, without mention of misadventure at the time of the procedure; D63.8 Anemia in other chronic diseases classified elsewhere; D69.6 Thrombocytopenia, unspecified; E11.22 Type 2 diabetes mellitus with diabetic chronic kidney disease; E66.9 Obesity, unspecified; E78.5 Hyperlipidemia, unspecified; I08.1 Rheumatic disorders of both mitral and tricuspid valves; I25.10 Atherosclerotic heart disease of native coronary artery without angina pectoris; I25.2 Old myocardial infarction; I27.20 Pulmonary hypertension, unspecified; I08.3 Combined rheumatic disorders of mitral, aortic and tricuspid valves; I48.2 Chronic atrial fibrillation; I89.0 Lymphedema, not elsewhere classified; K64.8 Other hemorrhoids; M81.0 Age-related osteoporosis without current pathological fracture; N18.3 Chronic kidney disease, stage 3 (moderate); S50.311A Abrasion of right elbow, initial encounter; W01.0XXA Fall on same level from slipping, tripping and stumbling without subsequent striking against object, initial encounter; Y79.2 Prosthetic and other implants, materials and accessory orthopedic devices associated with adverse incidents; Y92.009 Unspecified place in unspecified non-institutional (private) residence as the place of occurrence of the external cause; Z79.82 Long term (current) use of aspirin; Z79.899 Other long term (current) drug therapy; Z85.46 Personal history of malignant neoplasm of prostate; Z87.891 Personal history of nicotine dependence; Z95.5 Presence of coronary angioplasty implant and graft; Z95.810 Presence of automatic (implantable) cardiac defibrillator; Z96.611 Presence of right artificial shoulder joint; Z96.643 Presence of artificial hip joint, bilateral; Z96.653 Presence of artificial knee joint, bilateral; Z88.5 Allergy status to narcotic agent; Z90.49 Acquired absence of other specified parts of digestive tract
CPT/HCPCS: 27250; 71045; 72170; 73502; 80048; 80053; 83036; 83735; 85025; 85027; 85610; 86850; 86900; 86901; 94760; 96374; 99152; 99285